=== PATIENT | female | born 1945 | race Caucasian/White ===

== ENCOUNTER → 2016-05-31 | Outpatient (REF) | payer MEDICARE ==
[2016-05-31 13:37] LABS: MEAN CORPUSCULAR HEMOGLOBIN 27.6 pg (27.0-33.0); MEAN CORPUSCULAR HGB CONC 32.2 g/dl (32.0-36.5); MEAN CORPUSCULAR VOLUME 85.7 fl (80.0-96.0); RED CELL DISTRIBUTION WIDTH 14.5 % (11.5-14.5); WHITE BLOOD COUNT 8.4 K/mm3 (4.0-10.0)
[2016-05-31 13:54] LABS: ALBUMIN 3.7 GM/DL (3.2-5.2); ALBUMIN/GLOBULIN RATIO 1.12 (1.00-1.93); ALKALINE PHOSPHATASE 103 U/L (45-117); ALT/SGPT 12 U/L (12-78); ANION GAP 7 MEQ/L (8-16); AST/SGOT 14 U/L (15-37); BILIRUBIN,TOTAL 0.5 MG/DL (0.2-1.0); BLOOD UREA NITROGEN 8 MG/DL (7-18); CALCIUM LEVEL 10.1 MG/DL (8.8-10.2); CARBON DIOXIDE LEVEL 37 MEQ/L (21-32); CHLORIDE LEVEL 97 MEQ/L (98-107); CHOLESTEROL LEVEL 176 MG/DL (<200); CREATININE FOR GFR 0.87 MG/DL (0.55-1.02); FREE T4 1.65 NG/DL (0.76-1.46); GLOMERULAR FILTRATION RATE > 60.0 (>39); GLUCOSE, FASTING 133 MG/DL (83-110); MAGNESIUM LEVEL 2.1 MG/DL (1.8-2.4); POTASSIUM SERUM 3.2 MEQ/L (3.5-5.1); SODIUM LEVEL 141 MEQ/L (136-145); TRIGLYCERIDES LEVEL 181 MG/DL (<150)
== END ==
LOC: M SFHCADAM 09:10
PROVIDERS: ATTEND Physician Assistant
DX: J44.9 Chronic obstructive pulmonary disease, unspecified (principal); E03.9 Hypothyroidism, unspecified; E78.4 Other hyperlipidemia; F17.200 Nicotine dependence, unspecified, uncomplicated; E61.2 Magnesium deficiency

== ENCOUNTER → 2016-05-31 | Outpatient (CLI) | payer MEDICARE ==
--- NOTE | 2016-05-31 16:23 | REP ---
Clinical: COPD with acute dyspnea . Comparison: 08/02/2014 . Technique: PA and lateral. Findings: The mediastinum and cardiac silhouette are stable with evidence for prior sternotomy as well as surgery involving the left hemithorax The lung wyatt demonstrate diffuse chronic interstitial changes without acute consolidation, effusion, or pneumothorax. The skeletal structures are intact and normal. Impression: 1. Diffuse chronic interstitial changes. No obvious acute cardiopulmonary process. Signed by Viet Nixon MD 05/31/2016 04:14 P
== END ==
LOC: M ADAMS 15:35
PROVIDERS: ATTEND Physician Assistant
DX: J44.1 Chronic obstructive pulmonary disease with (acute) exacerbation (principal); E87.6 Hypokalemia; F17.218 Nicotine dependence, cigarettes, with other nicotine-induced disorders; Z79.82 Long term (current) use of aspirin; Z79.899 Other long term (current) drug therapy
CPT/HCPCS: 71020; 80053; 80061; 83735; 84439; 84443; 85027; G0463

== ENCOUNTER → 2016-07-24 | Outpatient (REF) | payer MEDICARE ==
[2016-07-24 21:10] LABS: ANION GAP 6 MEQ/L (8-16); BLOOD UREA NITROGEN 13 MG/DL (7-18); CALCIUM LEVEL 9.9 MG/DL (8.8-10.2); CARBON DIOXIDE LEVEL 34 MEQ/L (21-32); CHLORIDE LEVEL 100 MEQ/L (98-107); CREATININE FOR GFR 0.85 MG/DL (0.55-1.02); GLOMERULAR FILTRATION RATE > 60.0 (>39); GLUCOSE, FASTING 145 MG/DL (83-110); POTASSIUM SERUM 3.3 MEQ/L (3.5-5.1); SODIUM LEVEL 140 MEQ/L (136-145)
== END ==
LOC: M LAB REF 09:27
PROVIDERS: ATTEND Physician Assistant Medical
DX: M81.0 Age-related osteoporosis without current pathological fracture (principal); Z78.0 Asymptomatic menopausal state

== ENCOUNTER → 2016-07-24 | Outpatient (CLI) | payer MEDICARE ==
[2016-07-24 21:10] LABS: BLOOD UREA NITROGEN 12 MG/DL (7-18); GLOMERULAR FILTRATION RATE > 60.0 (>39)
== END ==
LOC: M ADAMS 13:00
PROVIDERS: ATTEND Internal Medicine Hematology & Oncology
DX: M81.0 Age-related osteoporosis without current pathological fracture (principal); C34.12 Malignant neoplasm of upper lobe, left bronchus or lung; C79.31 Secondary malignant neoplasm of brain; Z85.048 Personal history of other malignant neoplasm of rectum, rectosigmoid junction, and anus; Z78.0 Asymptomatic menopausal state

== ENCOUNTER 2016-09-09 09:43 | Emergency (ER) | payer MEDICARE ==
[~2016-09-09] VITALS: Ht 160 cm; Wt 58.1 kg
[2016-09-09] MEDS ORDERED: CRES10TA32 PO (09:55)
[2016-09-09] MEDS ORDERED: LEVO75TA4 (09:55)
[2016-09-09] MEDS ORDERED: ATEN50TA2 (09:55)
[2016-09-09] MEDS ORDERED: CALC600T21 PO (09:55)
[2016-09-09] MEDS ORDERED: SPIR1CAP (09:55)
[2016-09-09] MEDS ORDERED: RANI150T (09:55)
[2016-09-09] MEDS ORDERED: ASPI81CH32 PO (09:55)
[2016-09-09] MEDS ORDERED: ALBU17IN (09:55)
[2016-09-09 12:02] LABS: BASO % 0.4 % (0.0-1.0); EOS # 0.1 K/mm3 (0.0-0.50); EOS % 1.9 % (0.0-3.0); LARGE UNSTAINED CELL # 0.2 K/mm3 (0.0-0.4); LARGE UNSTAINED CELL % 2.4 % (0.0-4.0); LYMPH # 2.2 K/mm3 (1.5-4.5); LYMPH % 27.4 % (24.0-44.0); MEAN CORPUSCULAR HEMOGLOBIN 27.4 pg (27.0-33.0); MEAN CORPUSCULAR HGB CONC 31.6 g/dl (32.0-36.5); MEAN CORPUSCULAR VOLUME 86.7 fl (80.0-96.0); MONO # 0.5 K/mm3 (0.0-0.8); MONO % 7.2 % (0.0-5.0); NEUTROPHILS # 4.5 K/mm3 (1.8-7.7); NEUTROPHILS % 60.6 % (36.0-66.0); PLATELET COUNT, AUTOMATED 168 k/mm3 (150-450); RED CELL DISTRIBUTION WIDTH 13.6 % (11.5-14.5); WHITE BLOOD COUNT 7.4 K/mm3 (4.0-10.0)
[2016-09-09 12:19] LABS: ANION GAP 4 MEQ/L (8-16); BLOOD UREA NITROGEN 8 MG/DL (7-18); CALCIUM LEVEL 9.2 MG/DL (8.8-10.2); CARBON DIOXIDE LEVEL 34 MEQ/L (21-32); CHLORIDE LEVEL 103 MEQ/L (98-107); CREATININE FOR GFR 0.71 MG/DL (0.55-1.02); GLOMERULAR FILTRATION RATE > 60.0 (>39); GLUCOSE, FASTING 89 MG/DL (83-110); POTASSIUM SERUM 3.2 MEQ/L (3.5-5.1); SODIUM LEVEL 141 MEQ/L (136-145)
--- NOTE | 2016-09-09 12:42 | REP ---
Portable chest, single AP view, patient sitting: Comparison is 08/02/2014. Sternotomy wires and borderline enlarged cardiac size are unchanged. There are no focal infiltrates. The left costophrenic angle is mildly effaced suggestive of a small left pleural effusion. The right costophrenic angle is unremarkable. The андрей, mediastinum, and bony thorax are unremarkable. Impression: Question small left pleural effusion. Signed by Saleem Wallace MD 09/09/2016 12:33 P
--- NOTE | 2016-09-09 12:52 | REP ---
CT of the brain without IV contrast: Comparisons of the prior brain CT dated 10/21/2013 and brain MRI dated 06/16/2014. There has been an interim right occipital craniotomy. The previous right cerebellar mass is no longer present. There is focal encephalomalacia in this location on the current study. No recurrent mass by CT. Additionally, there has been interim left posterior superior parietal craniotomy. The previous mass in this location is no longer present. There is focal encephalomalacia. No evidence of tumor recurrence by CT. There is no acute hemorrhage. There is no acute edema, mass effect or midline shift. Ventricles are normal size and midline. The cortical stripe is unremarkable. The visualized paranasal sinuses and mastoid air cells are clear. Impression: There is no hemorrhage, acute infarct or mass. There are old craniotomies one on the right on the on the left as described. No evidence of tumor recurrence at either craniotomy site by CT. Signed by Saleem Wallace MD 09/09/2016 12:43 P
[2016-09-09 13:10] LABS: INR 0.96
[2016-09-09 13:23] LABS: MAGNESIUM LEVEL 2.1 MG/DL (1.8-2.4)
[2016-09-09] MEDS ORDERED: LISINOPRIL 10 MG TAB PO ONE (13:30)
[2016-09-09] MEDS ORDERED: SPIRONOLACTONE 25 MG TAB PO ONE (13:30)
[2016-09-09] MEDS ORDERED: POTASSIUM CHL PWD 20 MEQ PACKET PO ONE ×2 (13:30→15:30)
[2016-09-09] MEDS ORDERED: SPIR25TA2 PO (15:29)
[2016-09-09] MEDS ORDERED: LISI10TA4 PO (15:30)
[2016-09-09] MEDS ORDERED: POTA10PO PO (15:31)
[2016-09-09 15:37] VITALS: BP 167/71
--- NOTE | 2016-09-09 22:29 | ED PDOC ---
Post-Departure Follow-Up dr agosto faxed formal report of cxr for fu Sabas Wyman MD Sep 09, 2016 22:29
--- NOTE | 2016-09-10 20:26 | ECGEPIP ---
Stationary ECG Study [facility] - ED Test Date: 2016-09-09 Pat Name: CHRISSY HENRIQUEZ Department: Room: - Gender: F Flow Nurse: : 1945 Requested By: Joleen Murillo Order Number: [id number] Reading MD: Joleen Murillo Measurements Intervals [place] Rate: 55 P: 53 [place]: 151 QRS: 60 QRSD: 101 T: 46 QT: 426 QTc: 409 Interpretive Statements SINUS BRADYCARDIA NO PRIOR FOR COMPARISON Electronically Signed On 09-10-2016 20:26:16 EDT by Joleen Murillo
[2016-09-15 14:10] LABS: ALDOSTERONE <1.0 ng/dL (0.0-30.0)
== END 2016-09-09 15:50 | disposition home or self-care (01) ==
LOC: M ED 11:23
DX: I10 Essential (primary) hypertension (principal); E87.6 Hypokalemia; R20.9 Unspecified disturbances of skin sensation; J44.9 Chronic obstructive pulmonary disease, unspecified; E07.9 Disorder of thyroid, unspecified; Z85.038 Personal history of other malignant neoplasm of large intestine; Z85.118 Personal history of other malignant neoplasm of bronchus and lung; Z79.899 Other long term (current) drug therapy; Z79.82 Long term (current) use of aspirin; Z88.5 Allergy status to narcotic agent; F17.210 Nicotine dependence, cigarettes, uncomplicated

== ENCOUNTER → 2016-09-14 | Outpatient (REF) | payer MEDICARE ==
[~2016-09-14] MED LIST: ALBU17IN; ASPI81CH32 PO; ATEN50TA2; CALC600T21 PO; CRES10TA32 PO; LEVO75TA4; LISI10TA4 PO; POTA10PO PO; RANI150T; SPIR1CAP; SPIR25TA2 PO
[2016-09-14 12:48] LABS: ANION GAP 6 MEQ/L (8-16); BLOOD UREA NITROGEN 10 MG/DL (7-18); CALCIUM LEVEL 9.8 MG/DL (8.8-10.2); CARBON DIOXIDE LEVEL 31 MEQ/L (21-32); CHLORIDE LEVEL 102 MEQ/L (98-107); CREATININE FOR GFR 0.93 MG/DL (0.55-1.02); GLOMERULAR FILTRATION RATE > 60.0 (>39); GLUCOSE, FASTING 162 MG/DL (83-110); POTASSIUM SERUM 4.1 MEQ/L (3.5-5.1); SODIUM LEVEL 139 MEQ/L (136-145)
== END ==
LOC: M LAB REF 12:25
PROVIDERS: ATTEND Internal Medicine Cardiovascular Disease
DX: I10 Essential (primary) hypertension (principal)

== ENCOUNTER → 2016-10-26 | Outpatient (REF) | payer MEDICARE ==
[2016-10-26 13:20] LABS: CREATININE FOR GFR 1.07 MG/DL (0.55-1.02); GLOMERULAR FILTRATION RATE 53.7 (>39)
== END ==
LOC: M LABDRWAD 12:09
PROVIDERS: ATTEND Nurse Practitioner Adult Health
DX: C79.31 Secondary malignant neoplasm of brain (principal); C34.12 Malignant neoplasm of upper lobe, left bronchus or lung; Z85.048 Personal history of other malignant neoplasm of rectum, rectosigmoid junction, and anus

== ENCOUNTER → 2016-11-27 | Outpatient (REF) | payer MEDICARE ==
[~2016-11-27] MED LIST changes: -CALC600T21 PO; +CALC600T60 PO
[2016-11-27 13:01] LABS: MEAN CORPUSCULAR HEMOGLOBIN 29.2 pg (27.0-33.0); MEAN CORPUSCULAR HGB CONC 32.8 g/dl (32.0-36.5); MEAN CORPUSCULAR VOLUME 89.2 fl (80.0-96.0); RED CELL DISTRIBUTION WIDTH 13.7 % (11.5-14.5); WHITE BLOOD COUNT 10.6 K/mm3 (4.0-10.0)
[2016-11-27 13:19] LABS: ALBUMIN 3.9 GM/DL (3.2-5.2); ALBUMIN/GLOBULIN RATIO 1.15 (1.00-1.93); BILIRUBIN,TOTAL 0.6 MG/DL (0.2-1.0); CALCIUM LEVEL 10.9 MG/DL (8.8-10.2); CREATININE FOR GFR 1.19 MG/DL (0.55-1.02); GLOMERULAR FILTRATION RATE 47.5 (>39); POTASSIUM SERUM 4.8 MEQ/L (3.5-5.1); TOTAL PROTEIN 7.3 GM/DL (6.4-8.2)
== END ==
LOC: M SFHCADAM 08:13
PROVIDERS: ATTEND Physician Assistant
DX: J44.1 Chronic obstructive pulmonary disease with (acute) exacerbation (principal); E87.6 Hypokalemia

== ENCOUNTER → 2017-01-28 | Outpatient (REF) | payer MEDICARE ==
[2017-01-28 14:00] LABS: CREATININE FOR GFR 1.16 MG/DL (0.55-1.02); GLOMERULAR FILTRATION RATE 48.9 (>39)
== END ==
LOC: M LABDRWAD 12:16
PROVIDERS: ATTEND Radiology Radiation Oncology
DX: C34.12 Malignant neoplasm of upper lobe, left bronchus or lung (principal); C79.31 Secondary malignant neoplasm of brain; Z85.048 Personal history of other malignant neoplasm of rectum, rectosigmoid junction, and anus

== ENCOUNTER → 2017-02-27 | Outpatient (REF) | payer MEDICARE ==
[2017-02-27 20:27] LABS: CALCIUM LEVEL 11.2 MG/DL (8.8-10.2); CREATININE FOR GFR 1.07 MG/DL (0.55-1.02); GLOMERULAR FILTRATION RATE 53.7 (>39)
[2017-02-27 20:28] LABS: POTASSIUM SERUM 5.3 MEQ/L (3.5-5.1)
== END ==
LOC: M SFHCADAM 11:39
PROVIDERS: ATTEND Family Medicine
DX: N18.3 Chronic kidney disease, stage 3 (moderate) (principal)

== ENCOUNTER → 2017-03-06 | Outpatient (REF) | payer MEDICARE ==
[2017-03-06 21:20] LABS: ALBUMIN 3.9 GM/DL (3.2-5.2); ALBUMIN/GLOBULIN RATIO 1.05 (1.00-1.93); BILIRUBIN,TOTAL 0.3 MG/DL (0.2-1.0); CALCIUM LEVEL 10.9 MG/DL (8.8-10.2); CREATININE FOR GFR 1.08 MG/DL (0.55-1.02); FREE T4 1.24 NG/DL (0.76-1.46); GLOMERULAR FILTRATION RATE 53.1 (>39); TOTAL PROTEIN 7.6 GM/DL (6.4-8.2)
[2017-03-06 21:22] LABS: POTASSIUM SERUM 5.3 MEQ/L (3.5-5.1)
== END ==
LOC: M SFHCADAM 14:37
PROVIDERS: ATTEND Family Medicine
DX: E83.52 Hypercalcemia (principal)

== ENCOUNTER → 2017-04-10 | Outpatient (CLI) | payer MEDICARE ==
--- NOTE | 2017-04-10 15:24 | REPMRS ---
Patient History The patient states she had a clinical breast exam in 03/2017. Patient is postmenopausal, has history of other cancer at age 68, and has history of colorectal cancer at age 53. Family history of breast cancer in mother at age 90. Digital Woman Screen Mammo: April 10, 2017 - Exam #: [id number] Bilateral CC and MLO view(s) were taken. Technologist: Vianney Tran Technologist Prior study comparison: April 02, 2016, digital woman screen mammo performed at [facility]. April 18, 2015, digital woman screen mammo performed at [facility]. FINDINGS: There are scattered fibroglandular densities. There has been no change in the appearance of the mammogram from the prior studies. There is a mild amount of residual fibroglandular tissue which is fairly symmetric. There is no interval development of dominant mass, architectural distortion, or clustered microcalcification suggestive of malignancy. ASSESSMENT: BI-RADS/ACR category 1 mammogram. Negative. Recommendation Routine screening mammogram in 1 year (for women over age 40). This mammogram was interpreted with the aid of an FDA-approved computer-aided dectection system. Electronically Signed By: Saleem Johansen MD 04/10/17 0209
== END ==
LOC: M WHC 10:33
PROVIDERS: ATTEND Family Medicine
DX: Z12.31 Encounter for screening mammogram for malignant neoplasm of breast (principal); Z85.038 Personal history of other malignant neoplasm of large intestine; Z80.3 Family history of malignant neoplasm of breast; Z78.0 Asymptomatic menopausal state

== ENCOUNTER → 2017-04-29 | Outpatient (REF) | payer MEDICARE ==
[2017-04-29 13:31] LABS: ANION GAP 8 MEQ/L (8-16); BLOOD UREA NITROGEN 7 MG/DL (7-18); CALCIUM LEVEL 10.2 MG/DL (8.8-10.2); CARBON DIOXIDE LEVEL 28 MEQ/L (21-32); CHLORIDE LEVEL 104 MEQ/L (98-107); CREATININE FOR GFR 0.92 MG/DL (0.55-1.02); FREE T4 1.37 NG/DL (0.76-1.46); GLOMERULAR FILTRATION RATE > 60.0 (>39); GLUCOSE, FASTING 109 MG/DL (83-110); POTASSIUM SERUM 4.3 MEQ/L (3.5-5.1); SODIUM LEVEL 140 MEQ/L (136-145)
== END ==
LOC: M LABDRWAD 12:32
PROVIDERS: ATTEND Internal Medicine Endocrinology, Diabetes & Metabolism
DX: M81.0 Age-related osteoporosis without current pathological fracture (principal); E55.9 Vitamin D deficiency, unspecified; E89.0 Postprocedural hypothyroidism

== ENCOUNTER → 2017-04-29 | Outpatient (REF) | payer MEDICARE ==
[2017-04-29 13:17] LABS: BLOOD UREA NITROGEN 7 MG/DL (7-18); GLOMERULAR FILTRATION RATE > 60.0 (>39)
== END ==
LOC: M LABDRWAD 12:34
PROVIDERS: ATTEND Neurological Surgery
DX: C79.31 Secondary malignant neoplasm of brain (principal)

== ENCOUNTER → 2017-07-30 | Outpatient (REF) | payer MEDICARE ==
[2017-07-30 13:03] LABS: CREATININE FOR GFR 1.12 MG/DL (0.55-1.30); GLOMERULAR FILTRATION RATE 50.8 (>39)
[2017-07-30 13:03] LABS: BLOOD UREA NITROGEN 9 MG/DL (7-18)
== END ==
LOC: M LABDRWAD 12:04
DX: R59.9 Enlarged lymph nodes, unspecified (principal)
CPT/HCPCS: 82565

== ENCOUNTER → 2017-08-02 | Outpatient (REF) | payer MEDICARE ==
[2017-08-02 13:31] LABS: ANION GAP 5 MEQ/L (8-16); BLOOD UREA NITROGEN 10 MG/DL (7-18); CALCIUM LEVEL 10.4 MG/DL (8.8-10.2); CARBON DIOXIDE LEVEL 30 MEQ/L (21-32); CHLORIDE LEVEL 104 MEQ/L (98-107); CREATININE FOR GFR 0.91 MG/DL (0.55-1.30); GLOMERULAR FILTRATION RATE > 60.0 (>39); GLUCOSE, FASTING 137 MG/DL (70-100); PHOSPHORUS LEVEL 3.1 MG/DL (2.5-4.9); POTASSIUM SERUM 4.5 MEQ/L (3.5-5.1); SODIUM LEVEL 139 MEQ/L (136-145)
== END ==
LOC: M LABDRWAD 12:51
DX: M81.0 Age-related osteoporosis without current pathological fracture (principal)
CPT/HCPCS: 84100

== ENCOUNTER → 2017-09-18 | Outpatient (REF) | payer MEDICARE ==
[2017-09-18 13:06] LABS: PLATELET COUNT, AUTOMATED 158 10^3/uL (150-450)
[2017-09-18 13:19] LABS: PROTHROMBIN TIME 13.3 SECONDS (12.4-14.5)
[2017-09-18 13:20] LABS: PARTIAL THROMBOPLASTIN TIME 30.8 SECONDS (26.8-37.9)
== END ==
LOC: M LABDRWAD 12:45
DX: M48.061 Spinal stenosis, lumbar region without neurogenic claudication (principal); Z79.899 Other long term (current) drug therapy
CPT/HCPCS: 85049

== ENCOUNTER → 2017-10-28 | Outpatient (CLI) | payer MEDICARE ==
[2017-10-28 13:16] LABS: ALBUMIN 3.2 GM/DL (3.2-5.2); ALBUMIN/GLOBULIN RATIO 0.91 (1.00-1.93); ALKALINE PHOSPHATASE 106 U/L (45-117); ALT/SGPT 16 U/L (12-78); ANION GAP 2 MEQ/L (8-16); AST/SGOT 13 U/L (7-37); BILIRUBIN,TOTAL 0.3 MG/DL (0.2-1.0); BLOOD UREA NITROGEN 12 MG/DL (7-18); CALCIUM LEVEL 10.1 MG/DL (8.8-10.2); CARBON DIOXIDE LEVEL 33 MEQ/L (21-32); CHLORIDE LEVEL 105 MEQ/L (98-107); CREATININE FOR GFR 0.91 MG/DL (0.55-1.30); GLOMERULAR FILTRATION RATE > 60.0 (>39); GLUCOSE, FASTING 126 MG/DL (70-100); POTASSIUM SERUM 4.4 MEQ/L (3.5-5.1); SODIUM LEVEL 140 MEQ/L (136-145); TOTAL PROTEIN 6.7 GM/DL (6.4-8.2)
== END ==
LOC: M ADAMS 10:01
DX: C34.12 Malignant neoplasm of upper lobe, left bronchus or lung (principal); Z85.048 Personal history of other malignant neoplasm of rectum, rectosigmoid junction, and anus; R59.9 Enlarged lymph nodes, unspecified
CPT/HCPCS: 80053

== ENCOUNTER → 2017-12-24 | Outpatient (REF) | payer MEDICARE ==
[2017-12-24 12:56] LABS: HEMATOCRIT 32.1 % (36.0-47.0); HEMOGLOBIN 10.5 g/dl (12.0-15.5); MEAN CORPUSCULAR HEMOGLOBIN 29.6 pg (27.0-33.0); MEAN CORPUSCULAR HGB CONC 32.7 g/dl (32.0-36.5); MEAN CORPUSCULAR VOLUME 90.4 fl (80.0-96.0); PLATELET COUNT, AUTOMATED 177 10^3/uL (150-450); RED BLOOD COUNT 3.55 10^6/uL (4.00-5.40); RED CELL DISTRIBUTION WIDTH 13.2 % (11.5-14.5); WHITE BLOOD COUNT 10.6 10^3/uL (4.0-10.0)
[2017-12-24 13:25] LABS: ALBUMIN 3.4 GM/DL (3.2-5.2); ALKALINE PHOSPHATASE 84 U/L (45-117); ALT/SGPT 16 U/L (12-78); ANION GAP 7 MEQ/L (8-16); AST/SGOT 14 U/L (7-37); BILIRUBIN,TOTAL 0.3 MG/DL (0.2-1.0); BLOOD UREA NITROGEN 9 MG/DL (7-18); CALCIUM LEVEL 10.2 MG/DL (8.8-10.2); CARBON DIOXIDE LEVEL 27 MEQ/L (21-32); CHLORIDE LEVEL 106 MEQ/L (98-107); CHOLESTEROL LEVEL 118 MG/DL (<200); CHOLESTEROL RISK RATIO 3.189 (<5); CREATININE FOR GFR 0.94 MG/DL (0.55-1.30); GLOMERULAR FILTRATION RATE > 60.0 (>39); GLUCOSE, FASTING 99 MG/DL (70-100); HDL CHOLESTEROL 37 MG/DL (>40); LDL CHOLESTEROL 48.8 MG/DL (<100); NON-HDL-C 81 MG/DL; POTASSIUM SERUM 4.3 MEQ/L (3.5-5.1); SODIUM LEVEL 140 MEQ/L (136-145); THYROID STIMULATING HORMONE 0.488 uIU/ML (0.358-3.740); TOTAL PROTEIN 6.8 GM/DL (6.4-8.2); TRIGLYCERIDES LEVEL 161 MG/DL (<150)
== END ==
LOC: M SFHCADAM 10:06
DX: C34.90 Malignant neoplasm of unspecified part of unspecified bronchus or lung (principal); F17.200 Nicotine dependence, unspecified, uncomplicated; E03.9 Hypothyroidism, unspecified; E78.4 Other hyperlipidemia
CPT/HCPCS: 84443

== ENCOUNTER → 2018-01-29 | Outpatient (REF) | payer MEDICARE ==
[2018-01-29 14:14] LABS: CREATININE FOR GFR 0.95 MG/DL (0.55-1.30); GLOMERULAR FILTRATION RATE > 60.0 (>39)
[2018-01-29 14:14] LABS: BLOOD UREA NITROGEN 9 MG/DL (7-18)
== END ==
LOC: M LABDRWAD 12:53
DX: C79.31 Secondary malignant neoplasm of brain (principal)
CPT/HCPCS: 82565

== ENCOUNTER → 2018-04-14 | Outpatient (CLI) | payer MEDICARE | LOC: M WHC 11:04 | DX: Z12.31 Encounter for screening mammogram for malignant neoplasm of breast (principal); Z85.038 Personal history of other malignant neoplasm of large intestine; Z85.118 Personal history of other malignant neoplasm of bronchus and lung; Z85.841 Personal history of malignant neoplasm of brain; Z80.3 Family history of malignant neoplasm of breast | CPT/HCPCS: 77067 ==

== ENCOUNTER → 2018-04-14 | Outpatient (CLI) | payer MEDICARE | LOC: M WHC 11:22 | DX: Z12.31 Encounter for screening mammogram for malignant neoplasm of breast (principal); M81.0 Age-related osteoporosis without current pathological fracture; Z85.038 Personal history of other malignant neoplasm of large intestine; Z85.118 Personal history of other malignant neoplasm of bronchus and lung; Z85.841 Personal history of malignant neoplasm of brain; Z80.3 Family history of malignant neoplasm of breast | CPT/HCPCS: 77067 ==

== ENCOUNTER → 2018-04-29 | Outpatient (REF) | payer MEDICARE ==
[2018-04-29 14:05] LABS: ANION GAP 5 MEQ/L (8-16); BLOOD UREA NITROGEN 8 MG/DL (7-18); CALCIUM LEVEL 10.2 MG/DL (8.8-10.2); CARBON DIOXIDE LEVEL 31 MEQ/L (21-32); CHLORIDE LEVEL 100 MEQ/L (98-107); CREATININE FOR GFR 1.02 MG/DL (0.55-1.30); GLOMERULAR FILTRATION RATE 56.6 (>39); GLUCOSE, FASTING 107 MG/DL (70-100); POTASSIUM SERUM 4.3 MEQ/L (3.5-5.1); SODIUM LEVEL 136 MEQ/L (136-145)
== END ==
LOC: M LABDRWAD 12:46
DX: M81.0 Age-related osteoporosis without current pathological fracture (principal); C79.31 Secondary malignant neoplasm of brain
CPT/HCPCS: 80048

== ENCOUNTER → 2018-04-29 | Outpatient (REF) | payer MEDICARE ==
[2018-04-29 14:07] LABS: BLOOD UREA NITROGEN 9 MG/DL (7-18)
[2018-04-29 14:07] LABS: CREATININE FOR GFR 1.03 MG/DL (0.55-1.30); GLOMERULAR FILTRATION RATE 55.9 (>39)
== END ==
LOC: M LABDRWAD 12:43
DX: C79.31 Secondary malignant neoplasm of brain (principal)

== ENCOUNTER → 2018-06-24 | Outpatient (REF) | payer MEDICARE ==
[~2018-06-24] MED LIST changes: +SPIR-10 PO; -SPIR25TA2 PO
[2018-06-24 15:12] LABS: HEMATOCRIT 34.8 % (36.0-47.0); HEMOGLOBIN 11.4 g/dl (12.0-15.5); MEAN CORPUSCULAR HEMOGLOBIN 29.1 pg (27.0-33.0); MEAN CORPUSCULAR HGB CONC 32.8 g/dl (32.0-36.5); MEAN CORPUSCULAR VOLUME 88.8 fl (80.0-96.0); PLATELET COUNT, AUTOMATED 192 10^3/uL (150-450); RED BLOOD COUNT 3.92 10^6/uL (4.00-5.40); WHITE BLOOD COUNT 9.1 10^3/uL (4.0-10.0)
== END ==
LOC: M LABDRWAD 12:35
PROVIDERS: ATTEND Internal Medicine Cardiovascular Disease
DX: I25.10 Atherosclerotic heart disease of native coronary artery without angina pectoris (principal); I10 Essential (primary) hypertension; R42 Dizziness and giddiness

== ENCOUNTER → 2018-06-24 | Outpatient (REF) | payer MEDICARE ==
[2018-06-24 15:00] LABS: CALCIUM LEVEL 10.5 MG/DL (8.8-10.2); CREATININE FOR GFR 1.01 MG/DL (0.55-1.30); POTASSIUM SERUM 3.8 MEQ/L (3.5-5.1)
== END ==
LOC: M LABDRWAD 12:13
PROVIDERS: ATTEND Internal Medicine Endocrinology, Diabetes & Metabolism
DX: E89.0 Postprocedural hypothyroidism (principal); I25.10 Atherosclerotic heart disease of native coronary artery without angina pectoris; I10 Essential (primary) hypertension; R42 Dizziness and giddiness

== ENCOUNTER → 2018-06-29 | Outpatient (CLI) | payer MEDICARE ==
[2018-06-29 10:45] LABS: CALCIUM LEVEL 10.1 MG/DL (8.8-10.2); CREATININE FOR GFR 1.08 MG/DL (0.55-1.30); GLOMERULAR FILTRATION RATE 52.8 (>39); POTASSIUM SERUM 3.9 MEQ/L (3.5-5.1)
== END ==
LOC: M LAB 10:03
PROVIDERS: ATTEND Internal Medicine Endocrinology, Diabetes & Metabolism
DX: E87.1 Hypo-osmolality and hyponatremia (principal)

== ENCOUNTER → 2018-07-23 | Outpatient (REF) | payer MEDICARE ==
[2018-07-23 21:18] LABS: CREATININE FOR GFR 0.97 MG/DL (0.55-1.30); GLOMERULAR FILTRATION RATE 59.8 (>39)
== END ==
LOC: M LABDRWAD 13:47
PROVIDERS: ATTEND Neurological Surgery
DX: C79.31 Secondary malignant neoplasm of brain (principal)

== ENCOUNTER → 2018-07-23 | Outpatient (REF) | payer MEDICARE ==
[2018-07-23 21:12] LABS: BLOOD UREA NITROGEN 8 MG/DL (7-18); CALCIUM LEVEL 9.3 MG/DL (8.8-10.2); CARBON DIOXIDE LEVEL 33 MEQ/L (21-32); CHLORIDE LEVEL 103 MEQ/L (98-107); CREATININE FOR GFR 0.94 MG/DL (0.55-1.30); GLOMERULAR FILTRATION RATE > 60.0 (>39); GLUCOSE, FASTING 99 MG/DL (70-100); PHOSPHORUS LEVEL 2.8 MG/DL (2.5-4.9); POTASSIUM SERUM 3.6 MEQ/L (3.5-5.1); SODIUM LEVEL 140 MEQ/L (136-145)
[2018-07-23 21:14] LABS: TOTAL 25(OH) VITAMIN D 61.6 NG/ML (30.0-100.0)
== END ==
LOC: M LABDRWAD 13:54
PROVIDERS: ATTEND Internal Medicine Endocrinology, Diabetes & Metabolism
DX: E55.9 Vitamin D deficiency, unspecified (principal); E07.9 Disorder of thyroid, unspecified

== ENCOUNTER → 2018-10-02 | Outpatient (REF) | payer MEDICARE ==
[~2018-10-02] MED LIST changes: -ASPI81CH32 PO; +ASPI81CH33 PO; +CRES10TA PO; -CRES10TA32 PO
[2018-10-02 13:34] LABS: BLOOD UREA NITROGEN 11 MG/DL (7-18); CALCIUM LEVEL 11.1 MG/DL (8.8-10.2); CARBON DIOXIDE LEVEL 32 MEQ/L (21-32); CHLORIDE LEVEL 102 MEQ/L (98-107); CREATININE FOR GFR 0.94 MG/DL (0.55-1.30); GLOMERULAR FILTRATION RATE > 60.0 (>39); GLUCOSE, FASTING 129 MG/DL (70-100); SODIUM LEVEL 140 MEQ/L (136-145)
== END ==
LOC: M LABDRAW1 12:15
PROVIDERS: ATTEND Internal Medicine Endocrinology, Diabetes & Metabolism
DX: M81.0 Age-related osteoporosis without current pathological fracture (principal)

== ENCOUNTER → 2018-10-28 | Outpatient (REF) | payer MEDICARE ==
[2018-10-28 13:44] LABS: BLOOD UREA NITROGEN 13 MG/DL (7-18); CREATININE FOR GFR 0.96 MG/DL (0.55-1.30); GLOMERULAR FILTRATION RATE > 60.0 (>39)
== END ==
LOC: M LABDRWAD 12:20
PROVIDERS: ATTEND Neurological Surgery
DX: C79.31 Secondary malignant neoplasm of brain (principal)

== ENCOUNTER → 2019-01-02 | Outpatient (REF) | payer MEDICARE ==
[2019-01-02 11:26] LABS: HEMATOCRIT 42.4 % (36.0-47.0); HEMOGLOBIN 13.1 g/dl (12.0-15.5); MEAN CORPUSCULAR HGB CONC 30.9 g/dl (32.0-36.5); PLATELET COUNT, AUTOMATED 180 10^3/uL (150-450); RED BLOOD COUNT 4.51 10^6/uL (4.00-5.40); WHITE BLOOD COUNT 10.1 10^3/uL (4.0-10.0)
[2019-01-02 11:41] LABS: ALBUMIN 3.6 GM/DL (3.2-5.2); ALT/SGPT 15 U/L (12-78); BILIRUBIN,TOTAL 0.4 MG/DL (0.2-1.0); BLOOD UREA NITROGEN 18 MG/DL (7-18); CALCIUM LEVEL 10.8 MG/DL (8.8-10.2); CARBON DIOXIDE LEVEL 34 MEQ/L (21-32); CHLORIDE LEVEL 104 MEQ/L (98-107); CHOLESTEROL LEVEL 197 MG/DL (<200); CHOLESTEROL RISK RATIO 4.191 (<5); CREATININE FOR GFR 0.95 MG/DL (0.55-1.30); FREE T4 1.28 NG/DL (0.76-1.46); GLOMERULAR FILTRATION RATE > 60.0 (>39); GLUCOSE, FASTING 103 MG/DL (70-100); HDL CHOLESTEROL 47 MG/DL (>40); LDL CHOLESTEROL 125 MG/DL (<100); NON-HDL-C 150 MG/DL; POTASSIUM SERUM 4.6 MEQ/L (3.5-5.1); SODIUM LEVEL 143 MEQ/L (136-145); TOTAL PROTEIN 7.1 GM/DL (6.4-8.2); TRIGLYCERIDES LEVEL 125 MG/DL (<150)
== END ==
LOC: M SFHCADAM 08:01
PROVIDERS: ATTEND Family Medicine
DX: R53.83 Other fatigue (principal); E78.49 Other hyperlipidemia; E03.9 Hypothyroidism, unspecified

== ENCOUNTER 2019-01-15 06:43 | Emergency (ER) | payer MEDICARE ==
[~2019-01-15] VITALS: Ht 160 cm; Wt 53.6 kg
[2019-01-15] MEDS ORDERED: DECA4TAB PO (07:41)
[2019-01-15] MEDS ORDERED: DOXY-350 PO (07:42)
[2019-01-15 08:03] LABS: BASO % 0.1 % (0.0-1.0); EOS % 0.1 % (0.0-3.0); HEMOGLOBIN 12.5 g/dl (12.0-15.5); LYMPH # 2.3 10^3/uL (1.5-4.5); LYMPH % 16.2 % (24.0-44.0); MEAN CORPUSCULAR HEMOGLOBIN 28.8 pg (27.0-33.0); MEAN CORPUSCULAR HGB CONC 32.1 g/dl (32.0-36.5); MEAN CORPUSCULAR VOLUME 89.9 fl (80.0-96.0); MONO # 1.4 10^3/uL (0.0-0.8); MONO % 9.9 % (0.0-5.0); NEUTROPHILS # 10.1 10^3/uL (1.8-7.7); NEUTROPHILS % 72.5 % (36.0-66.0); PLATELET COUNT, AUTOMATED 208 10^3/uL (150-450); RED BLOOD COUNT 4.34 10^6/uL (4.00-5.40); WHITE BLOOD COUNT 13.9 10^3/uL (4.0-10.0)
[2019-01-15 08:14] LABS: INR 0.98; PROTHROMBIN TIME 12.7 SECONDS (11.8-14.0)
[2019-01-15 08:15] LABS: PARTIAL THROMBOPLASTIN TIME 29.2 SECONDS (25.0-38.4)
[2019-01-15] MEDS ORDERED: IPRATROPIUM 0.5MG/ALBUTEROL 2.5MG INH SOL UD 3ML (DUONEB)(J7620) NEB ONE ×2 (08:30→10:30)
[2019-01-15 08:35] LABS: BLOOD UREA NITROGEN 12 MG/DL (7-18); CALCIUM LEVEL 10.5 MG/DL (8.8-10.2); CARBON DIOXIDE LEVEL 32 MEQ/L (21-32); CHLORIDE LEVEL 102 MEQ/L (98-107); CK-MB VALUE MASS 2.9 NG/ML (<3.6); CPK CREATINE PHOSPHOKINASE 67 U/L (26-192); CREATININE FOR GFR 0.93 MG/DL (0.55-1.30); FREE T4 1.59 NG/DL (0.76-1.46); GLOMERULAR FILTRATION RATE > 60.0 (>39); GLUCOSE, FASTING 101 MG/DL (70-100); MB/CK RELATIVE INDEX 4.33 (< OR =4); NT-PRO BNP 1448 PG/ML (<125); POTASSIUM SERUM 4.6 MEQ/L (3.5-5.1); SODIUM LEVEL 138 MEQ/L (136-145); THYROID STIMULATING HORMONE 0.978 uIU/ML (0.358-3.740); TROPONIN I < 0.02 NG/ML (< 0.10)
--- NOTE | 2019-01-15 08:45 | REP ---
PA and lateral chest: Comparison is 08/02/2014. The lung wyatt are chronically hyperinflated. This is unchanged. There are no infiltrates or effusions. Lung wyatt otherwise clear. Cardiac size is mildly enlarged, unchanged. There are sternotomy wires, unchanged. The андрей, mediastinum, and skeletal structures are unremarkable. Impression: Chronic hyperinflation. Chronic mild cardiomegaly. Electronically Signed by Saleem Wallace MD 01/15/2019 08:36 A
[2019-01-15] MEDS ORDERED: LOSA50TA88 PO (08:57)
[2019-01-15] MEDS ORDERED: ATENOLOL 50 MG TAB PO ONE (09:00)
[2019-01-15] MEDS ORDERED: LISINOPRIL 10 MG TAB PO ONE (09:00)
[2019-01-15] MEDS ORDERED: LOSARTAN 50 MG TAB PO ONE (09:30)
[2019-01-15 09:42] VITALS: BP 191/80
[2019-01-15] MEDS ORDERED: methylPREDNISolone INJ 125 MG/2 ML VIAL (J2930) IV ONE (09:45)
[2019-01-15] MEDS ORDERED: CLEV1MIS25 XX ×2 (11:56→11:58)
[2019-01-15] MEDS ORDERED: PRED20TA PO (11:56)
[2019-01-15] MEDS ORDERED: IPRA0.00 NEB (11:56)
[2019-01-15 12:45] VITALS: BP 173/75
--- NOTE | 2019-01-15 21:23 | ECGEPIP ---
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
== END 2019-01-15 12:59 | disposition home or self-care (01) ==
LOC: M ED 06:43
DX: J44.0 Chronic obstructive pulmonary disease with (acute) lower respiratory infection (principal); I11.9 Hypertensive heart disease without heart failure; E78.5 Hyperlipidemia, unspecified; F17.200 Nicotine dependence, unspecified, uncomplicated; Z95.2 Presence of prosthetic heart valve; Z88.5 Allergy status to narcotic agent; Z79.899 Other long term (current) drug therapy; Z79.82 Long term (current) use of aspirin; Z79.2 Long term (current) use of antibiotics
CPT/HCPCS: 71046; 80048; 82550; 82553; 83880; 84439; 84443; 84484; 85025; 85610; 85730; 87070; 87205; 93005; 93041; 94640; 94760; 96374; 99285; J2930

== ENCOUNTER → 2019-01-28 | Outpatient (REF) | payer MEDICARE ==
[~2019-01-28] MED LIST changes: +CLEV1MIS25 XX; +DECA4TAB PO; +DOXY-350 PO; +IPRA0.00 NEB; +LOSA50TA88 PO; +PRED20TA PO
[2019-01-28 12:52] LABS: BLOOD UREA NITROGEN 12 MG/DL (7-18); CREATININE FOR GFR 0.78 MG/DL (0.55-1.30); GLOMERULAR FILTRATION RATE > 60.0 (>39)
== END ==
LOC: M LABDRWAD 12:21
PROVIDERS: ATTEND Nurse Practitioner Adult Health
DX: C79.31 Secondary malignant neoplasm of brain (principal); M48.061 Spinal stenosis, lumbar region without neurogenic claudication

== ENCOUNTER → 2019-02-13 | Outpatient (REF) | payer MEDICARE ==
[2019-02-13 20:30] LABS: BLOOD UREA NITROGEN 8 MG/DL (7-18); CALCIUM LEVEL 9.5 MG/DL (8.8-10.2); CARBON DIOXIDE LEVEL 32 MEQ/L (21-32); CHLORIDE LEVEL 105 MEQ/L (98-107); CREATININE FOR GFR 0.81 MG/DL (0.55-1.30); FREE T4 1.35 NG/DL (0.76-1.46); GLOMERULAR FILTRATION RATE > 60.0 (>39); GLUCOSE, FASTING 90 MG/DL (70-100); SODIUM LEVEL 141 MEQ/L (136-145); THYROID STIMULATING HORMONE 0.547 uIU/ML (0.358-3.740); TOTAL 25(OH) VITAMIN D 47.6 NG/ML (30.0-100.0)
== END ==
LOC: M LABDRWAD 19:18
PROVIDERS: ATTEND Internal Medicine Endocrinology, Diabetes & Metabolism
DX: E89.0 Postprocedural hypothyroidism (principal); M81.0 Age-related osteoporosis without current pathological fracture

== ENCOUNTER → 2019-04-27 | Outpatient (CLI) | payer MEDICARE ==
--- NOTE | 2019-04-27 12:19 | REPMRS ---
Patient History The patient states she has not had a clinical breast exam in over a year. Family history of breast cancer at age 90 in mother. 3D TOMOSYNTHESIS WAS PERFORMED. [facility] Digital Woman Screen Mammo: April 27, 2019 - Exam #: [id number] Bilateral CC and MLO view(s) were taken. Technologist: Meaghan Marte, Technologist Prior study comparison: April 14, 2018, bilateral digital woman screen mammo performed at [facility]. April 10, 2017, digital woman screen mammo performed at [facility]. FINDINGS: The breast tissue is heterogeneously dense. This may lower the sensitivity of mammography. There has been no change in the appearance of the mammogram from the prior studies. There is a moderate amount of residual fibroglandular tissue which is fairly symmetric. There is no interval development of dominant mass, areas of architectural distortion, or clustered microcalcification typical of malignancy. Assessment: BI-RADS/ACR category 1 mammogram. Negative Mammogram. Recommendation Routine screening mammogram in 1 year (for women over age 40). This mammogram was interpreted with the aid of an FDA-approved computer-aided dectection system. Electronically Signed By: Saleem Johansen MD 04/27/19 [id number]
== END ==
LOC: M WHC 11:22
PROVIDERS: ATTEND Family Medicine
DX: Z12.31 Encounter for screening mammogram for malignant neoplasm of breast (principal); Z80.3 Family history of malignant neoplasm of breast

== ENCOUNTER → 2019-04-29 | Outpatient (REF) | payer MEDICARE ==
[2019-04-29 16:45] LABS: CREATININE FOR GFR 0.97 MG/DL (0.55-1.30); GLOMERULAR FILTRATION RATE 59.8 (>39)
== END ==
LOC: M LABDRWAD 12:38
PROVIDERS: ATTEND Nurse Practitioner Adult Health
DX: C79.31 Secondary malignant neoplasm of brain (principal); M48.061 Spinal stenosis, lumbar region without neurogenic claudication

== ENCOUNTER → 2019-06-22 | Outpatient (REF) | payer MEDICARE ==
[2019-06-22 13:37] LABS: HEMATOCRIT 43.6 % (36.0-47.0); MEAN CORPUSCULAR HEMOGLOBIN 28.2 pg (27.0-33.0); MEAN CORPUSCULAR HGB CONC 29.8 g/dl (32.0-36.5); MEAN CORPUSCULAR VOLUME 94.6 fl (80.0-96.0); PLATELET COUNT, AUTOMATED 185 10^3/uL (150-450); RED BLOOD COUNT 4.61 10^6/uL (4.00-5.40); WHITE BLOOD COUNT 11.3 10^3/uL (4.0-10.0)
[2019-06-22 13:59] LABS: ALBUMIN 3.4 GM/DL (3.2-5.2); ALT/SGPT 12 U/L (12-78); BILIRUBIN,TOTAL 0.5 MG/DL (0.2-1.0); BLOOD UREA NITROGEN 8 MG/DL (7-18); CALCIUM LEVEL 10.1 MG/DL (8.8-10.2); CARBON DIOXIDE LEVEL 33 MEQ/L (21-32); CHLORIDE LEVEL 102 MEQ/L (98-107); CHOLESTEROL LEVEL 124 MG/DL (<200); CHOLESTEROL RISK RATIO 2.638 (<5); CREATININE FOR GFR 0.88 MG/DL (0.55-1.30); FREE T4 1.49 NG/DL (0.76-1.46); GLOMERULAR FILTRATION RATE > 60.0 (>39); GLUCOSE, FASTING 101 MG/DL (70-100); HDL CHOLESTEROL 47 MG/DL (>40); LDL CHOLESTEROL 61 MG/DL (<100); NON-HDL-C 77 MG/DL; POTASSIUM SERUM 4.7 MEQ/L (3.5-5.1); SODIUM LEVEL 139 MEQ/L (136-145); THYROID STIMULATING HORMONE 0.981 uIU/ML (0.358-3.740); TOTAL 25(OH) VITAMIN D 59.4 NG/ML (30.0-100.0); TOTAL PROTEIN 6.6 GM/DL (6.4-8.2); TRIGLYCERIDES LEVEL 80 MG/DL (<150)
== END ==
LOC: M SFHCADAM 08:19
PROVIDERS: ATTEND Family Medicine
DX: J44.9 Chronic obstructive pulmonary disease, unspecified (principal); N18.3 Chronic kidney disease, stage 3 (moderate); I12.9 Hypertensive chronic kidney disease with stage 1 through stage 4 chronic kidney disease, or unspecified chronic kidney disease; E03.9 Hypothyroidism, unspecified; E78.5 Hyperlipidemia, unspecified

== ENCOUNTER → 2019-07-27 | Outpatient (REF) | payer MEDICARE ==
[2019-07-27 17:47] LABS: BLOOD UREA NITROGEN 8 MG/DL (7-18); CREATININE FOR GFR 0.91 MG/DL (0.55-1.30); GLOMERULAR FILTRATION RATE > 60.0 (>39)
== END ==
LOC: M LABDRWAD 17:01
PROVIDERS: ATTEND Nurse Practitioner Adult Health
DX: C79.31 Secondary malignant neoplasm of brain (principal); M48.061 Spinal stenosis, lumbar region without neurogenic claudication

== ENCOUNTER → 2019-11-18 | Outpatient (REF) | payer MEDICARE ==
[2019-11-18 14:44] LABS: BLOOD UREA NITROGEN 16 MG/DL (7-18); CREATININE FOR GFR 0.96 MG/DL (0.55-1.30); GLOMERULAR FILTRATION RATE > 60.0 (>39)
== END ==
LOC: M LABDRWAD 12:27
PROVIDERS: ATTEND Nurse Practitioner Adult Health
DX: C79.31 Secondary malignant neoplasm of brain (principal); M48.061 Spinal stenosis, lumbar region without neurogenic claudication

== ENCOUNTER 2020-01-18 20:22 | Emergency (ER) | payer MEDICARE ==
[~2020-01-18] VITALS: Ht 160 cm; Wt 54.6 kg
[~2020-01-18 20:22] MED LIST changes: -CHLO125TA PO
--- NOTE | 2020-01-18 22:11 | REPVR ---
PROCEDURE INFORMATION: Exam: CT Head Without Contrast Exam date and time: 01/18/2020 9:54 PM Age: 74 years old Clinical indication: Pain; Headache; Additional info: High BP with eye/head pain, HX tumor TECHNIQUE: Imaging protocol: Computed tomography of the head without contrast. Radiation optimization: All CT scans at this facility use at least one of these dose optimization techniques: automated exposure control; mA and/or kV adjustment per patient size (includes targeted exams where dose is matched to clinical indication); or iterative reconstruction. COMPARISON: CT Head without contrast 09/09/2016 12:28 PM FINDINGS: Brain: Areas of left parietal and right cerebellar encephalomalacia are stable. There is no evidence of intracranial hemorrhage. No mass effect or midline shift is seen. No abnormal extra-axial fluid collections are identified. Ventricles: The ventricles are normal in size and configuration. Bones/joints: Right suboccipital craniectomy and parietal craniotomy again noted. Sinuses: The visualized sinuses are unremarkable. Mastoid air cells: Partial opacification of the right mastoid air cells. Vasculature: Atherosclerotic vascular disease is noted at the level of the skull base. IMPRESSION: 1. Postoperative changes left parietal and right suboccipital craniotomies, with underlying encephalomalacia in these locations. 2. No acute intracranial hemorrhage, mass effect or midline shift. Electronically signed by: Aide Ross On 01/18/2020 22:10:56 PM
[2020-01-18] MEDS ORDERED: LABETALOL 100MG/20ML VIAL IV STA (23:43)
[2020-01-19 00:17] LABS: BASO # 0.1 10^3/uL (0.0-0.2); BASO % 0.4 % (0.0-1.0); EOS # 0.3 10^3/uL (0.0-0.5); EOS % 2.6 % (0.0-3.0); HEMATOCRIT 37.4 % (36.0-47.0); HEMOGLOBIN 12.2 g/dl (12.0-15.5); LYMPH # 3.6 10^3/uL (1.5-5.0); LYMPH % 30.9 % (24.0-44.0); MEAN CORPUSCULAR HGB CONC 32.6 g/dl (32.0-36.5); MEAN CORPUSCULAR VOLUME 91.9 fl (80.0-96.0); MONO # 1.2 10^3/uL (0.0-0.8); MONO % 9.9 % (0.0-5.0); NEUTROPHILS # 6.5 10^3/uL (1.5-8.5); NEUTROPHILS % 55.6 % (36.0-66.0); PLATELET COUNT, AUTOMATED 190 10^3/uL (150-450); RED BLOOD COUNT 4.07 10^6/uL (4.00-5.40); WHITE BLOOD COUNT 11.6 10^3/uL (4.0-10.0)
[2020-01-19 00:21] VITALS: BP 208/88
[2020-01-19 00:23] LABS: BLOOD UREA NITROGEN 8 MG/DL (7-18); CALCIUM LEVEL 10.7 MG/DL (8.8-10.2); CARBON DIOXIDE LEVEL 31 MEQ/L (21-32); CHLORIDE LEVEL 107 MEQ/L (98-107); CK-MB VALUE MASS 1.1 NG/ML (<3.6); CPK CREATINE PHOSPHOKINASE 43 U/L (26-192); CREATININE FOR GFR 0.81 MG/DL (0.55-1.30); GLOMERULAR FILTRATION RATE > 60.0 (>39); GLUCOSE, FASTING 101 MG/DL (70-100); MB/CK RELATIVE INDEX 2.56 (< OR =4); POTASSIUM SERUM 3.7 MEQ/L (3.5-5.1); SODIUM LEVEL 141 MEQ/L (136-145); TROPONIN I < 0.02 NG/ML (< 0.10)
[2020-01-19 00:32] LABS: APPEARANCE, URINE CLEAR (CLEAR); BACTERIA, URINE AUTO NEGATIVE (NEGATIVE); BILIRUBIN, URINE AUTO NEGATIVE (NEGATIVE); BLOOD, URINE BLOOD NEGATIVE (NEGATIVE); COLOR, URINE STRAW (YELLOW); GLUCOSE, URINE (UA) AUTO NEGATIVE (NEGATIVE); KETONE, URINE AUTO NEGATIVE (NEGATIVE); LEUKOCYTE ESTERASE, URINE AUTO NEGATIVE (NEGATIVE); NITRITE, URINE AUTO NEGATIVE (NEGATIVE); PROTEIN, URINE AUTO NEGATIVE (NEGATIVE); RBC, URINE AUTO 3 /HPF (0-3); SPECIFIC GRAVITY URINE AUTO 1.005 (1.002-1.035); SQUAMOUS EPITHELIAL CELL UR AU 1 /HPF (0-6); UROBILINOGEN, URINE AUTO 0.2 mg/dL (0.0-2.0); WBC, URINE AUTO 1 /HPF (0-3)
[2020-01-19 00:45] VITALS: BP 171/72
[2020-01-19] MEDS ORDERED: CHLORTHALIDONE 25 MG TAB PO ONE (02:00)
[2020-01-19] MEDS ORDERED: CHLO125TA PO (02:01)
--- NOTE | 2020-01-31 18:48 | ECGEPIP ---
[facility] - ED Test Date: 2020-01-18 Pat Name: CHRISSY HENRIQUEZ Department: Room: - Gender: Female Test Lab Technician: gabrielle : 1945 Requested By: SILVIO Rubin PA-C Order Number: [id number] Reading MD: Joleen Murillo Measurements Intervals [place] Rate: 66 P: 63 [place]: 143 QRS: 77 QRSD: 101 T: 67 QT: 378 QTc: 398 Interpretive Statements SINUS RHYTHM MINIMAL ST DEPRESSION BORDERLINE ECG SEE SCANNED DOWNTIME REPORT
== END 2020-01-19 02:10 | disposition home or self-care (01) ==
LOC: M ED 20:22
DX: I16.0 Hypertensive urgency (principal); E03.9 Hypothyroidism, unspecified; F17.200 Nicotine dependence, unspecified, uncomplicated; Z79.82 Long term (current) use of aspirin; Z79.899 Other long term (current) drug therapy; Z88.5 Allergy status to narcotic agent

== ENCOUNTER → 2020-01-18 | Outpatient (REF) | payer MEDICARE ==
[~2020-01-18] MED LIST changes: +CHLO125TA PO
[2020-01-18 14:44] LABS: BLOOD UREA NITROGEN 8 MG/DL (7-18); CALCIUM LEVEL 10.2 MG/DL (8.8-10.2); CARBON DIOXIDE LEVEL 29 MEQ/L (21-32); CHLORIDE LEVEL 106 MEQ/L (98-107); CREATININE FOR GFR 0.83 MG/DL (0.55-1.30); GLOMERULAR FILTRATION RATE > 60.0 (>39); GLUCOSE, FASTING 110 MG/DL (70-100); POTASSIUM SERUM 4.2 MEQ/L (3.5-5.1); SODIUM LEVEL 140 MEQ/L (136-145); THYROID STIMULATING HORMONE 0.554 uIU/ML (0.358-3.740); TOTAL 25(OH) VITAMIN D 55.5 NG/ML (30.0-100.0)
== END ==
LOC: M LABDRWAD 10:10
PROVIDERS: ATTEND Family Medicine
DX: M81.0 Age-related osteoporosis without current pathological fracture (principal); E89.0 Postprocedural hypothyroidism; E55.9 Vitamin D deficiency, unspecified

== ENCOUNTER → 2020-01-21 | Outpatient (REF) | payer MEDICARE ==
[~2020-01-21] MED LIST changes: +CHLO125TA PO
[2020-01-21 13:40] LABS: HEMATOCRIT 37.7 % (36.0-47.0); MEAN CORPUSCULAR HEMOGLOBIN 29.3 pg (27.0-33.0); MEAN CORPUSCULAR HGB CONC 31.8 g/dl (32.0-36.5); PLATELET COUNT, AUTOMATED 188 10^3/uL (150-450); WHITE BLOOD COUNT 10.2 10^3/uL (4.0-10.0)
[2020-01-21 15:13] LABS: CALCIUM LEVEL 10.1 MG/DL (8.8-10.2); CREATININE FOR GFR 1.18 MG/DL (0.55-1.30); GLOMERULAR FILTRATION RATE 47.5 (>39); POTASSIUM SERUM 3.8 MEQ/L (3.5-5.1)
== END ==
LOC: M LABDRWAD 12:53
PROVIDERS: ATTEND Internal Medicine Cardiovascular Disease
DX: I10 Essential (primary) hypertension (principal)

== ENCOUNTER → 2020-03-09 | Outpatient (REF) | payer MEDICARE ==
[2020-03-09 13:32] LABS: CREATININE FOR GFR 1.04 MG/DL (0.55-1.30)
== END ==
LOC: M LABDRWAD 12:10
PROVIDERS: ATTEND Neurological Surgery
DX: C79.31 Secondary malignant neoplasm of brain (principal)

== ENCOUNTER → 2020-03-18 | Outpatient (REF) | payer MEDICARE | LOC: M LAB REF 19:15 | PROVIDERS: ATTEND Physician Assistant | DX: R05 Cough (principal); R30.0 Dysuria; J44.9 Chronic obstructive pulmonary disease, unspecified ==

== ENCOUNTER → 2020-03-31 | Outpatient (CLI) | payer MEDICARE ==
--- NOTE | 2020-03-31 14:19 | REP ---
INDICATION: ATHSCL ARTERIES W/ CALUDICATION PENELOPE LEG PAINLEGS. Nicotine dependence. COMPARISON: None. TECHNIQUE: Bilateral lower extremity arterial Doppler ultrasound. FINDINGS: Ankle brachial indices are quite low, 0.43 on the right and 0.46 on the left. Severe plaquing is noted diffusely and bilaterally. Monophasic waveforms are noted bilaterally throughout the lower extremity arterial tree. Very slow flow is observed in both legs. Slow flow is observed in the distal aorta. No flow could be observed in the right external iliac artery. Monophasic waveforms are noted in the iliac arteries bilaterally and in the distal aorta. Question more proximal aortic disease or cardiac outflow issue. Right lower extremity arterial Doppler velocity chart: Distal aorta PSV 19 cm/S Right common iliac artery 85 Right external iliac artery no flow seen, question occluded Right HADOOP APPLICATION DEVELOPER 49 Profundal 46 Proximal SFA 60 Mid SFA 49-105 Distal SFA 50 Popliteal 22 Proximal ANKIT 17 Tibial-peroneal trunk 21 Proximal CENTRIFUGE SEPARATOR TENDER 11 Distal CENTRIFUGE SEPARATOR TENDER 19 Distal ANKIT 8 Left lower extremity arterial Doppler velocity chart: Distal aorta PSV 19 cm/S Left common iliac artery 102 Left external iliac artery 49 HADOOP APPLICATION DEVELOPER 30 Profundal 45 Proximal SFA 51 Mid SFA 59 Distal SFA 38 Popliteal 26 Proximal ANKIT 16 Tibial-peroneal trunk 15 Proximal CENTRIFUGE SEPARATOR TENDER 17 Distal CENTRIFUGE SEPARATOR TENDER 13 Distal ANKIT 11 IMPRESSION: Slow arterial flow state throughout both lower extremities including distal aorta and iliacs. Absence of flow observed in right external iliac artery. Monophasic waveforms. Question mid to proximal aortic versus cardiac disease. Possible inflow issue. Severe plaquing bilaterally. Low ABIs. <Electronically signed by Grupo Guy > 03/31/20 [id number]
== END ==
LOC: M RAD 10:32
PROVIDERS: ATTEND Physician Assistant
DX: I70.213 Atherosclerosis of native arteries of extremities with intermittent claudication, bilateral legs (principal); F17.210 Nicotine dependence, cigarettes, uncomplicated; M79.606 Pain in leg, unspecified

== ENCOUNTER → 2020-04-04 | Outpatient (REF) | payer MEDICARE ==
[~2020-04-04] MED LIST changes: +ALBU83IN NEB; +AMLO1TAB24 PO; -ATEN50TA2; +ATEN50TA2 PO; +D31000TA2 PO; -LEVO75TA4; +LEVO75TA4 PO; +NOXI1TAB PO; +SODI1TAB12 PO; -SPIR1CAP; +SPIR1CAP INH; +VENTAER INH
[2020-04-04 17:13] LABS: BASO % 0.3 % (0.0-1.0); EOS # 0.1 10^3/uL (0.0-0.5); EOS % 1.1 % (0.0-3.0); HEMOGLOBIN 11.5 g/dl (12.0-15.5); LYMPH # 2.9 10^3/uL (1.5-5.0); LYMPH % 25.5 % (24.0-44.0); MEAN CORPUSCULAR HEMOGLOBIN 28.5 pg (27.0-33.0); MEAN CORPUSCULAR HGB CONC 32.9 g/dl (32.0-36.5); MEAN CORPUSCULAR VOLUME 86.8 fl (80.0-96.0); MONO # 1.4 10^3/uL (0.0-0.8); NEUTROPHILS # 6.9 10^3/uL (1.5-8.5); NEUTROPHILS % 60.5 % (36.0-66.0); PLATELET COUNT, AUTOMATED 250 10^3/uL (150-450); RED BLOOD COUNT 4.03 10^6/uL (4.00-5.40); WHITE BLOOD COUNT 11.4 10^3/uL (4.0-10.0)
[2020-04-04 17:34] LABS: ALBUMIN 3.7 GM/DL (3.2-5.2); ALT/SGPT 12 U/L (12-78); BILIRUBIN,TOTAL 0.4 MG/DL (0.2-1.0); BLOOD UREA NITROGEN 10 MG/DL (7-18); CALCIUM LEVEL 10.4 MG/DL (8.8-10.2); CARBON DIOXIDE LEVEL 34 MEQ/L (21-32); CHLORIDE LEVEL 82 MEQ/L (98-107); FREE T4 1.85 NG/DL (0.76-1.46); GLOMERULAR FILTRATION RATE > 60.0 (>39); GLUCOSE, FASTING 96 MG/DL (70-100); POTASSIUM SERUM 3.9 MEQ/L (3.5-5.1); SODIUM LEVEL 122 MEQ/L (136-145); THYROID STIMULATING HORMONE 0.578 uIU/ML (0.358-3.740); TOTAL PROTEIN 6.8 GM/DL (6.4-8.2)
== END ==
LOC: M SFHCADAM 15:05
PROVIDERS: ATTEND Family Medicine
DX: R39.15 Urgency of urination (principal); R53.1 Weakness
CPT/HCPCS: 80053; 81002; 84439; 84443; 85025; 87086; G0463

== ENCOUNTER → 2020-04-07 | Outpatient (REF) | payer MEDICARE ==
[2020-04-07 13:26] LABS: BLOOD UREA NITROGEN 7 MG/DL (7-18); CALCIUM LEVEL 10.5 MG/DL (8.8-10.2); CARBON DIOXIDE LEVEL 32 MEQ/L (21-32); CHLORIDE LEVEL 80 MEQ/L (98-107); CREATININE FOR GFR 0.94 MG/DL (0.55-1.30); GLOMERULAR FILTRATION RATE > 60.0 (>39); GLUCOSE, FASTING 126 MG/DL (70-100); POTASSIUM SERUM 3.6 MEQ/L (3.5-5.1); SODIUM LEVEL 123 MEQ/L (136-145)
[2020-04-07 13:27] LABS: OSMOLALITY SERUM 255 MOSM/KG (280-301)
== END ==
LOC: M SFHCADAM 10:20
PROVIDERS: ATTEND Family Medicine
DX: E87.1 Hypo-osmolality and hyponatremia (principal)

== ENCOUNTER 2020-04-09 15:14 | Observation (INO) | payer MEDICARE ==
[~2020-04-09] VITALS: Ht 160 cm; Wt 52.6 kg
[~2020-04-09 15:14] MED LIST changes: -ALBU83IN NEB; -AMLO1TAB24 PO; -D31000TA2 PO; -NOXI1TAB PO; -SODI1TAB12 PO; -VENTAER INH
[2020-04-09] MEDS ORDERED: LIDOCAINE 2% 5ML JELLY UROJET TOP ONE (15:45)
[2020-04-09] MEDS ORDERED: NS 1,000 ML IV ONE (15:45)
[2020-04-09 16:18] LABS: BASO % 0.2 % (0.0-1.0); EOS # 0.1 10^3/uL (0.0-0.5); EOS % 0.6 % (0.0-3.0); HEMATOCRIT 31.7 % (36.0-47.0); HEMOGLOBIN 10.8 g/dl (12.0-15.5); LYMPH # 1.7 10^3/uL (1.5-5.0); LYMPH % 16.3 % (24.0-44.0); MEAN CORPUSCULAR HEMOGLOBIN 28.2 pg (27.0-33.0); MEAN CORPUSCULAR HGB CONC 34.1 g/dl (32.0-36.5); MEAN CORPUSCULAR VOLUME 82.8 fl (80.0-96.0); MONO # 1.2 10^3/uL (0.0-0.8); MONO % 11.5 % (0.0-5.0); NEUTROPHILS # 7.4 10^3/uL (1.5-8.5); NEUTROPHILS % 70.8 % (36.0-66.0); PLATELET COUNT, AUTOMATED 206 10^3/uL (150-450); RED BLOOD COUNT 3.83 10^6/uL (4.00-5.40); WHITE BLOOD COUNT 10.4 10^3/uL (4.0-10.0)
[2020-04-09] MEDS: ALBUTEROL 90 MCG/ACT 8GM HFA INHALER INH SCH ×3 (16:20→17:16)
[2020-04-09 16:30] LABS: INR 0.96; PARTIAL THROMBOPLASTIN TIME 29.1 SECONDS (24.2-38.5)
[2020-04-09] MEDS ORDERED: POTASSIUM CHLORIDE 10 MEQ SR TABLET PO ONE ×2 (16:30→23:15)
[2020-04-09] MEDS ORDERED: KCL 10MEQ/100ML SWI (KRUN) 10 MEQ in IV 1 EA IV ONE (16:30)
[2020-04-09] MEDS ORDERED: NOXI1TAB PO (16:40)
[2020-04-09 16:54] LABS: OSMOLALITY SERUM 237 MOSM/KG (280-301)
[2020-04-09 16:58] LABS: ALBUMIN 3.5 GM/DL (3.2-5.2); ALT/SGPT 16 U/L (12-78); BILIRUBIN,DIRECT 0.2 MG/DL (0.0-0.2); BILIRUBIN,TOTAL 0.6 MG/DL (0.2-1.0); BLOOD UREA NITROGEN 6 MG/DL (7-18); CALCIUM LEVEL 9.8 MG/DL (8.8-10.2); CARBON DIOXIDE LEVEL 35 MEQ/L (21-32); CHLORIDE LEVEL 74 MEQ/L (98-107); CREATININE FOR GFR 0.84 MG/DL (0.55-1.30); FREE T4 2.57 NG/DL (0.76-1.46); GLOMERULAR FILTRATION RATE > 60.0 (>39); GLUCOSE, FASTING 118 MG/DL (70-100); LIPASE 92 U/L (73-393); MAGNESIUM LEVEL 1.5 MG/DL (1.8-2.4); POTASSIUM SERUM 2.8 MEQ/L (3.5-5.1); SODIUM LEVEL 115 MEQ/L (136-145); THYROID STIMULATING HORMONE 0.697 uIU/ML (0.358-3.740); TOTAL PROTEIN 6.4 GM/DL (6.4-8.2)
--- NOTE | 2020-04-09 17:04 | REP ---
INDICATION: CHEST PAIN COMPARISON: 01/15/2019 TECHNIQUE: Portable AP view of the chest FINDINGS: The mediastinum and cardiac silhouette are stable and within normal limits for portable technique. Evidence for prior sternotomy and CABG again noted. The lung wyatt demonstrate chronic appearing interstitial changes without acute consolidation, effusion, or pneumothorax. Skeletal structures are intact. IMPRESSION: No acute cardiopulmonary process appreciated. No focal consolidation or effusion. <Electronically signed by Viet Nixon > 04/09/20 0562
[2020-04-09] MEDS ORDERED: MAG SULF 1GM/100ML (MAG RUN) 1 GM in IV 1 EA IV ONE (17:15)
[2020-04-09] MEDS ORDERED: CHLO125TA PO (17:38)
[2020-04-09] MEDS ORDERED: D31000TA2 PO (17:38)
[2020-04-09] MEDS ORDERED: VENTAER INH (17:38)
[2020-04-09] MEDS ORDERED: ALBU83IN NEB (17:38)
--- NOTE | 2020-04-09 17:50 | ECGEPIP ---
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
--- NOTE | 2020-04-09 17:55 | REPVR ---
PROCEDURE INFORMATION: Exam: CT Head Without Contrast Exam date and time: 04/09/2020 5:10 PM Age: 74 years old Clinical indication: Injury or trauma; Fall; Blunt trauma (contusions or hematomas); Consciousness not specified; Additional info: Fall, wk TECHNIQUE: Imaging protocol: Computed tomography of the head without contrast. Radiation optimization: All CT scans at this facility use at least one of these dose optimization techniques: automated exposure control; mA and/or kV adjustment per patient size (includes targeted exams where dose is matched to clinical indication); or iterative reconstruction. COMPARISON: CT Head without contrast 01/18/2020 9:47 PM FINDINGS: Brain: There is no acute cortical infarction, intracranial hemorrhage or mass. Prior regions of encephalomalacia underlying the craniotomy defects parietal and right suboccipital/right cerebellar hemisphere are again noted. Cerebral ventricles: No ventriculomegaly. Bones/joints: As above. Paranasal sinuses: Visualized sinuses are unremarkable. No fluid levels. Mastoid air cells: Visualized mastoid air cells are well aerated. Vasculature: Atherosclerosis. Soft tissues: Unremarkable. IMPRESSION: No acute intracranial findings. Electronically signed by: Pat Buckley On 04/09/2020 17:55:21 PM
[2020-04-09 18:10] LABS: CREATININE,RANDOM URINE 71.4 MG/DL
--- NOTE | 2020-04-09 20:06 | HPEPDOC ---
[facility] Medical History & Physical Date of Admission Apr 09, 2020 Date of Service: Apr 09, 2020 Primary Care Physician: Jesse Marrero MD Attending Physician: JOY TESFAYE MD History and Physical CHIEF COMPLAINT: Weakness HISTORY OF PRESENT ILLNESS: Patient is a 74-year-old female, past medical history significant for COPD, aortic valve replacement, brain tumor 2, colon cancer, hypertension, hyperlipidemia, CAD s/p CABG, Who presents to the ED via EMS complaining increasing weakness over the last 2-3 weeks, typically worse in the last 4 days. Denies any loss of consciousness or changes in mental status. Previously diagnosed with UTI 10 days ago and has recently completed standard course of Bactrim. Upon presentation, patient was found to be afebrile, pulse of 73, respiratory rate of 18, blood pressure 160/78 and saturating 98% on room air. . Vital signs 1 hour later demonstrated orthostasis with a supine blood pressure of 197/74 (115) pulse of 78, 177/123 (141) pulse of 79 sitting, 120/58 (78) pulse of 83 standing. Laboratory evaluation demonstrated a very mild elevation of WBC, 10.4. H/H of 10.8/31.7. Chemistries show a sodium of 115, potassium of 2.8. BUN/Cr of 6/0.84, osmolality of 237, hypomagnesemia of 1.5. UA significant for trace ketones, nitrates and trace LE. Urine osmolality of 266, creatinine of 71.4, sodium of 46.Patient was given a bolus of normal saline. Potassium replacement with 40 mEq by mouth and 10 mEq IV, magnesium replacement with a single mag run. Hospitalist team was contacted to admit the patient for further monitoring and management. PAST MEDICAL HISTORY: Adenocarcinoma, stage IV, S/P left upper lobectomy Brain metastases first noted in 06/03, resected in 08/01 confirmatory adeno for some of the lung primary Colon cancer, 1997, status post chemotherapy Hypercholesterolemia Hypothyroid, follows with Dr. Burroughs Aortic valve replacement, porcine, 2000 Mitral valve prolapse Peripheral arterial disease, rt superior femoral artery Carotid artery disease Left vocal cord paralysis COPD Current nicotine dependence Osteoporosis Crohn's disease Paroxysmal atrial fibrillation, on ASA, no anticoagulation due to GI bleed with ulcers from anastomoses in the past PAST SURGICAL HISTORY: Hysterectomy, 1976 Right hemicolectomy, 1997 Cholecystectomy, 1998 Small bowel resection, 1999 Aortic valve replacement, porcine, 2000 Angioplasty of right leg, SFAPTA, 2004 ORIF of right hip fracture in 2004. Tonsillectomy, excision of tongue lesion, 1996 Cardiac cath Left upper lobe ectopy CyberKnife for brain lesions, 2015 SOCIAL HISTORY: . Lives alone in home in [place]. Daughter/granddaughter in the area who help around the house. Denies alcohol, other illicit drug use. Current smoker, 6-10 cigarettes per day. Reports smoking 1-1.5 packs per day since teens. 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 FAMILY HISTORY: Father: , 77, colon cancer Mother: , 92, breast cancer at age 90, tongue and lymph node cancer, CVA Siblings: Sister, , 82, [place], brother, living, hypertension Children: One daughter who is healthy ALLERGIES: Codeine, nausea and vomiting Statins, myalgias Advair, mouth soreness Chantix, nightmares Wellbutrin, fatigue REVIEW OF SYSTEMS: CONSTITUTIONAL: Ports increasing fatigue over the last 2-3 weeks. Denies any fevers, chills, night sweats or notable changes in weight. Appetite has remained consistent. HEENT: Denies any headache, changes in vision. Reports chronic left ear tinnitus, denies any changes in hearing or ear pain or fullness. Denies any nasal congestion or rhinorrhea. No sore throats, mouth lesions or difficulty swallowing. CARDIOVASCULAR: Denies any dedra chest pain or palpitations. Denies syncope or near-syncope. RESPIRATORY: Reports baseline reductive cough, unchanged in proceeding one month. Reports baseline VIDAL, patient does not use oxygen at home. Denies hemoptysis. GASTROINTESTINAL: Denies any reflux symptoms, abdominal pain/distention. Reports long-standing history of loose stools, denies any melena or hematochezia GENITOURINARY: As per HPI, patient was evaluated by urology on 04/05/20 4 incomplete voiding. Patient has been instructed to see CIC with 14 Martiniquais straight tip catheter. SKIN: No rashes, lesions or open wounds. MUSCULOSKELETAL: She does carry history of spinal stenosis and osteoporosis. Eyes any joint/muscle aches or pains NEUROLOGICAL: Adenocarcinoma of the lung with brain metastases. Denies any cur rent headache or neck pain. She denies any loss of consciousness, numbness tingling, focal weakness. HOME MEDICATIONS: Please see below. PHYSICAL EXAMINATION: VITAL SIGNS: Please see below GENERAL APPEARANCE: Patient is interviewed and examined in the emergency department. Patient was found resting comfortably in bed. She was alert and awake and oriented. In no acute distress and nontoxic appearing. Patient was able to answer questions appropriately regarding medical care. HEENT: Normocephalic, atraumatic, EOMI, sclerae nonicteric, no conjunctival injection, mucous membranes are moist, tongue is midline, supple without any appreciable lymphadenopathy. CARDIOVASCULAR: Regular rate and rhythm, no murmur appreciated, sternotomy scar noted LUNGS: Limited breath sounds in the bases bilaterally, without any wheezes rales or rhonchi. Symmetrical chest rise with fair respiratory effort. ABDOMEN: Soft, nontender, nondistended, no CVA tenderness. Hysterectomy and colectomy/small bowel resection scar is noted. EXTREMITIES: Able to move all extremities equally, bilaterally. Radial and posterior tibial pulses 2+ bilaterally. No lower extremity edema. No calf tenderness. NEUROLOGICAL: Oriented 3, no dysarthria, dysphasia or facial droop appreciated. Strength 5 out of 5 in upper and lower extremities. Cranial nerves grossly intact. PSYCHIATRIC: Mood and affect appear appropriate given patient's current medical condition. LABORATORY DATA: See below. IMAGING: EKG (04/09/20): Sinus rhythm, frequent supraventricular premature complexes, possible inferior myocardial infarction, probably old, moderate T-wave abnormality, consider anterior ischemia, borderline prolonged QTC of 455. Head CT (04/09/20): No acute intracranial findings Chest x-ray (04/09/20): No acute cardiopulmonary process appreciated. No focal consolidation or effusion. MICROBIOLOGY: Urine culture, catheterized (04/09/20): Pending Blood cultures (04/09/20): Pending ASSESSMENT: Patient is a 74-year-old female with multiple comorbidities, recently diagnosed with urinary retention and UTI, status post 10 days worth of Bactrim, who presented to the emergency department today reporting increasing weakness and l ethargy. Patient was found to be severely hyponatremic, hypokalemic and hypomagnesemic. Patient readmitted to the hospital for continued evaluation and management of her electrolyte abnormalities. PLAN: #Severe, asymptomatic hypotonic hyponatremia -Presenting sodium of 115, serum osm of 237 -Urine osm of 266, indicating impaired free-water excretion, supports SIADH -Urine sodium of 46 supporting normal circulating volume -Suspect chronic hyponatremia, possibly acutely worsened by recent course of Bactrim -Slow correction of 8 meq in 24hr, increased risk of CPM 2/2 to hyponatremia, +/- impaired nutritional status. -PCU, tele, fluid restriction, BMP monitoring every 4 hours, will hold Losartan Patient remains adamant that she does not take chlorthalidone. It is not listed on any PCP, cardiology, neurosurgery or her recent Urology note. Confirm with pharmacy in am, as this could be a significant contributing factor. #Hypertensive Urgency -Resolved, orthostatic in ED, Pt has received IVF, continue to monitor -BP averages 130-140 systolic per outpatient clinic notes -Repeat orthostatics. -Continue home atenolol #Hypokalemia -No T wave flattening, though patient does demonstrate a mildly lengthened QTc -On potassium sparring-diuretic, 10-days of Bactrim which should, in theory, increase serum potassium -Pt does carry a history of loose stools, though she denies dedra diarrhea, consider GI loss as possible contributing factor. -Mag monitoring and repletion as below, tele, BMP Q4H #Hypomagnesemia -IV repletion, continued monitoring #Urinary retention -Treated for a UTI by PCP with 10 days of Bactrim. Patient reports she took her last dose the morning of presentation. -Patient was seen by Dr. Patricio of urology on 04/05/20. -Multifactorial etiology suspected including a history of spinal stenosis, or pelvic surgeries and possibly Spiriva. -CIC with 14 Martiniquais straight tip catheter 4 times daily. -Urology follow-up scheduled for 04/21. #H/H -Hgb of 10.8 on admission, decreased from most recent value of 11.5 on 04/04/20 -Iron studies and hemoccult #COPD -Spiriva (possible contribution to urinary retention), albuterol nebulizer -Oxygen titration orders #Atrial fibrillation, paroxysmal -Rate controlled with atenolol, aspirin -No anticoagulation given risk of bleeding secondary to numerous bowel surgeries #Hypothyroid -TSH/fT4 over 0.697/2.57 -Home levothyroxine 75 g DVT PROPHYLAXIS: MILAGRO/SEQ CODE STATUS: DNR/DNI DISPOSITION: Anticipate >2 night stay Vital Signs Vital Signs Date Time Temp Pulse Resp B/P (MAP) Pulse Ox O2 Delivery O2 Flow Rate FiO2 11/21/20 19:15 78 18 168/75 (106) 97 Room Air 04/09/20 15:22 96.3 Laboratory Data Labs 24H Laboratory Tests 2 04/09/20 16:04: Immature Granulocyte % (Auto) 0.6, Neutrophils (%) (Auto) 70.8H, Lymphocytes (%) (Auto) 16.3L, Monocytes (%) (Auto) 11.5H, Eosinophils (%) (Auto) 0.6, Basophils (%) (Auto) 0.2, Neutrophils # (Auto) 7.4, Lymphocytes # (Auto) 1.7, Monocytes # (Auto) 1.2H, Eosinophils # (Auto) 0.1, Basophils # (Auto) 0.0, Nucleated Red Blood Cells % (auto) 0.0, Prothrombin Time 13.0, Prothromb Time International Ratio 0.96, Activated Partial Thromboplast Time 29.1, Anion Gap 6L, Glomerular Filtration Rate > 60.0, Osmolality 237L, Calcium Level 9.8, Magnesium Level 1.5L, Total Bilirubin 0.6, Direct Bilirubin 0.2, Aspartate Amino Transf (AST/SGOT) 16, Alanine Aminotransferase (ALT/SGPT) 16, Alkaline Phosphatase 81, Total Protein 6.4, Albumin 3.5, Albumin/Globulin Ratio 1.2, Lipase 92, Thyroid Stimulating Hormone (TSH) 0.697, Free Thyroxine 2.57H, Coronavirus (COVID-1 9)(PCR) NEGATIVE 04/09/20 17:37: Urine Color YELLOW, Urine Appearance HAZY, Urine pH 6.0, Urine Specific [place] 1.006, Urine Protein NEGATIVE, Urine Glucose (UA) NEGATIVE, Urine Ketones TRACEH, Urine Blood 1+H, Urine Nitrite POSITIVEH, Urine Bilirubin NEGATIVE, Urine Urobilinogen 0.2, Urine Leukocyte Esterase TRACEH, Urine WBC (Auto) 3, Urine RBC (Auto) 1, Urine Hyaline Casts (Auto) 0, Urine Bacteria (Auto) 3+H, Urine Squamous Epithelial Cells 1, Urine Mucus (Auto) SMALL, Urine Sperm (Auto) , Urine Random Osmolality 266L, Urine Random Creatinine 71.4, Urine Random Sodium 46 CBC/BMP Laboratory Tests 04/09/20 16:04 Microbiology Microbiology 04/09/20 Urine Culture, Received Pending 04/09/20 Blood Culture, Received Pending 04/09/20 Blood Culture, Received Pending Home Medications Scheduled Amlodipine Besylate (Amlodipine Besylate) 5 Mg Tablet, 5 MG PO BID Aspirin (Aspirin) 81 Mg Chw, 81 MG PO QHS Atenolol (Atenolol) 50 Mg Tab, 50 MG PO BID Calcium Carbonate (Calcium) 600 Mg Tab, 600 MG PO DAILY Cholecalciferol (Vitamin D3) (Vitamin D3) 1,000 Unit Tablet, 1,000 UNITS PO DAILY Levothyroxine Sodium (Levothyroxine Sodium) 75 Mcg Tab, 75 MCG PO DAILY Rosuvastatin Calcium (Crestor) 10 Mg Tab, 10 MG PO Q2D AT BEDTIME Sodium Chloride (Sodium Chloride) 1 Gm Tablet, 1 GRAM PO BID Tiotropium [place] (Spiriva) 18 Mcg Cap, 1 PUFF INH DAILY @ 1700 Scheduled PRN Albuterol Sulf (Albuterol Sulfate) 2.5 Mg/3 Ml Vial.neb, 1 VIAL NEB QID PRN for SOB/WHEEZING Albuterol Sulfate (Ventolin Hfa) 18 Gm Hfa.aer.ad, 2 PUFFS INH QID PRN for SOB/WHEEZING Allergies Coded Allergies: codeine (Verified Allergy, Unknown, HIVES , 01/15/19) A-FIB/CHADSVASC A-FIB History Current/History of A-Fib/PAF?: Yes Current PO Anticoag Therapy: No GME ATTESTATION GME ATTESTATION My faculty preceptor for this patient encounter was physically present during the encounter and was fully available. All aspects of the patient interview, examination, medical decision making process, and medical care plan development were reviewed and approved by the faculty preceptor. The faculty preceptor is aware and concurs with the plan as stated in the body of this note and will attest to such by his/her cosignature. ATTENDING NOTE TIME OF SERVICE 945PM is a 74 yr old w a hx of HTN, COPD, Afib and Hypothyroidism who presented w c/o dizziness & weakness is admitted for management of HTN Urgency, and multiple electrolyte imbalances. # Dizziness likely 2/2 HTN Urgency and or Orthostasis / Labile BP # Euvolemic hypotonic hyponatremia. Likely idiosyncratic reaction to chlorthalidone # Unsteady gait & weakness 2/2 Hypokalemia # Hypokalemia 2/2 hypomagnesemia. Since TTKG is <3 hypokalemia is extrarenal # Hypomagnesemia likely 2/2 hypokalemia. Since fractional excretion of Mg is <3% (2.5%) hypomagnesemia is not due to renal magnesium wasting # Metabolic Alkalosis 2/2 chlorthalidone #Overcorrection of Hyponatremia. D5W was administered for a few hours Plan: admit to PCU / treat HTN (dc chlorthalidone and start amlodipine for BP), f/u serial Na / replete lytes as needed / f/u iron studies, B12, folate and stool occult / will ask the day time team to refer the patient to a HTN Specialist or Unit Director on an out pt basis for a work-up for secondary causes of HTN and to titrate her meds especially bc her BP is very labile AUTUMN DURON DO Apr 09, 2020 20:06 JOY TESFAYE MD Apr 10, 2020 02:13
[2020-04-09] MEDS ORDERED: ACETAMINOPHEN TAB 650MG DOSE (2X325MG) PO PRN (20:45)
[2020-04-09 20:53] LABS: BLOOD UREA NITROGEN 6 MG/DL (7-18); CALCIUM LEVEL 9.2 MG/DL (8.8-10.2); CARBON DIOXIDE LEVEL 30 MEQ/L (21-32); CHLORIDE LEVEL 82 MEQ/L (98-107); CREATININE FOR GFR 0.79 MG/DL (0.55-1.30); GLOMERULAR FILTRATION RATE > 60.0 (>39); GLUCOSE, FASTING 111 MG/DL (70-100); POTASSIUM SERUM 3.3 MEQ/L (3.5-5.1); SODIUM LEVEL 120 MEQ/L (136-145)
[2020-04-09] MEDS ORDERED: ALBUTEROL 90 MCG/ACT 8GM HFA INHALER INH PRN (21:00)
[2020-04-09] MEDS ORDERED: ROSUVASTATIN 10 MG TAB (CRESTOR) PO SCH (21:00)
[2020-04-09 21:21] VITALS: BP 145/65
[2020-04-09] MEDS: ASPIRIN 81 MG CHEW TABLET PO SCH (22:29)
[2020-04-09] MEDS: atenoloL 50 MG TAB PO SCH (22:30)
[2020-04-10] VITALS: BP_SYST 132; BP_SYST 162; BP_DIAS 58; BP_DIAS 86
[2020-04-10 00:29] LABS: BLOOD UREA NITROGEN 7 MG/DL (7-18); CALCIUM LEVEL 9.3 MG/DL (8.8-10.2); CARBON DIOXIDE LEVEL 31 MEQ/L (21-32); CHLORIDE LEVEL 85 MEQ/L (98-107); CREATININE FOR GFR 0.87 MG/DL (0.55-1.30); GLOMERULAR FILTRATION RATE > 60.0 (>39); GLUCOSE, FASTING 115 MG/DL (70-100); MAGNESIUM LEVEL 1.9 MG/DL (1.8-2.4); POTASSIUM SERUM 3.3 MEQ/L (3.5-5.1); SODIUM LEVEL 124 MEQ/L (136-145)
[2020-04-10] MEDS ORDERED: POTASSIUM CHLORIDE 10 MEQ SR TABLET PO ONE (02:00)
[2020-04-10] MEDS ORDERED: D5W 500 ML IV SCH (02:00)
[2020-04-10] MEDS ORDERED: MAGNESIUM OXIDE 400 MG TAB (MAG-OX) PO ONE ×2 (02:00→06:00)
[2020-04-10 04:00] VITALS: BP 134/60
[2020-04-10 04:53] LABS: BLOOD UREA NITROGEN 6 MG/DL (7-18); CALCIUM LEVEL 8.9 MG/DL (8.8-10.2); CARBON DIOXIDE LEVEL 30 MEQ/L (21-32); CHLORIDE LEVEL 85 MEQ/L (98-107); CREATININE FOR GFR 0.85 MG/DL (0.55-1.30); FERRITIN 85 NG/ML (8-252); GLOMERULAR FILTRATION RATE > 60.0 (>39); GLUCOSE, FASTING 118 MG/DL (70-100); IRON (FE) 52 UG/DL (50-170); MAGNESIUM LEVEL 1.7 MG/DL (1.8-2.4); PERCENT SATURATION 18.2 % (13.2-45.0); POTASSIUM SERUM 3.8 MEQ/L (3.5-5.1); SODIUM LEVEL 123 MEQ/L (136-145); TOTAL IRON BINDING CAPACITY 286 UG/DL (250-450)
[2020-04-10 04:54] LABS: MAGNESIUM URINE RANDOM 3.5 MG/DL; POTASSIUM RANDOM URINE 7.7 MEQ/L
[2020-04-10 05:09] LABS: HEMATOCRIT 30.8 % (36.0-47.0); HEMOGLOBIN 10.4 g/dl (12.0-15.5); MEAN CORPUSCULAR HEMOGLOBIN 28.2 pg (27.0-33.0); MEAN CORPUSCULAR HGB CONC 33.8 g/dl (32.0-36.5); MEAN CORPUSCULAR VOLUME 83.5 fl (80.0-96.0); PLATELET COUNT, AUTOMATED 218 10^3/uL (150-450); RED BLOOD COUNT 3.69 10^6/uL (4.00-5.40); WHITE BLOOD COUNT 11.1 10^3/uL (4.0-10.0)
[2020-04-10] MEDS: LEVOTHYROXINE 75MCG TABLET (0.075MG) PO SCH (05:10)
[2020-04-10 08:00] VITALS: BP_SYST 122; BP_SYST 133; BP_SYST 157; BP_DIAS 56; BP_DIAS 63; BP_DIAS 69
[2020-04-10] MEDS ORDERED: TIOTROPIUM INHALER/CAPSULE (SPIRIVA) INH SCH (08:00)
[2020-04-10 09:03] LABS: BLOOD UREA NITROGEN 6 MG/DL (7-18); CALCIUM LEVEL 9.4 MG/DL (8.8-10.2); CARBON DIOXIDE LEVEL 33 MEQ/L (21-32); CHLORIDE LEVEL 86 MEQ/L (98-107); CREATININE FOR GFR 0.95 MG/DL (0.55-1.30); GLOMERULAR FILTRATION RATE > 60.0 (>39); GLUCOSE, FASTING 136 MG/DL (70-100); POTASSIUM SERUM 4.1 MEQ/L (3.5-5.1); SODIUM LEVEL 125 MEQ/L (136-145)
[2020-04-10] MEDS: atenoloL 50 MG TAB PO SCH ×2 (09:29→20:26)
[2020-04-10] MEDS: VITAMIN D 1,000 INTERNATIONAL UNITS TABLET PO SCH (09:30)
[2020-04-10] MEDS ORDERED: ALBUTEROL 90 MCG/ACT 8GM HFA INHALER INH PRN (10:30)
--- NOTE | 2020-04-10 10:31 | IPNPDOC ---
Date Seen The patient was seen on 04/10/20. Progress Note SUBJECTIVE: Patient is seen and examined at the bedside chart it's been reviewed. Overnight patient's sodium level increased from 115 to 125 this morning. She denies headache, changes in vision, confusion, seizure activity. Her chlorthalidone had been held due to severe hyponatremia. She is requesting her Spiriva and inhalers to be resumed as she previously dosed at home. Blood pressure is improved and she denies any chest pain, pressure, tightness or shortness of breath. OBJECTIVE PHYSICAL EXAMINATION: VITAL SIGNS: Please see below. GENERAL: Awake, alert, oriented 3, answering questions appropriately. No respiratory distress HEENT: Pupils equally round, reactive to light and accommodation. No horizontal or vertical nystagmus. Fluent speech , No stridor, no JVD CARDIOVASCULAR: S1, S2, sinus rhythm RESPIRATORY: Clear to auscultation. No wheezing, rales or rhonchi ABDOMINAL:soft, nontender, nondistended, normoactive bowel sounds 4 quadrants EXTREMITIES: No cyanosis, clubbing or pitting edema LABORATORY DATA, IMAGING STUDIES, MICROBIOLOGY: Please see below. ASSESSMENT: 74-year-old female with history of adenocarcinoma of the lung diagnosed July 2014 with metastatic lesions resected, status post left upper lobectomy, colon cancer 1997, status post chemotherapy porcine valve replacement 2000, hypothyroidism, hypercholesterolemia, peripheral arterial disease, COPD, osteop orosis, paroxysmal atrial fibrillation, on aspirin but no anticoagulation, admitted on 04/09/2020 with 2-3 week history of worsening weakness, worse in the past 4 days. Patient was treated for UTI. 10 days ago and had been on Bactrim for her blood pressure. She chronically takes chlorthalidone and was found to have hypertensive urgency. On arrival to the emergency room with blood pressure 177/123. Patient had severe hyponatremia with sodium level of 115. She was admitted for symptomatic anemia as well as hypertensive urgency. PROBLEMS: . Symptomatic hyponatremia related to chlorthalidone Hypertensive urgency History of adenocarcinoma of the lung 2014 with brain metastasis that is post left upper lobectomy and resection of brain metastases History of colon cancer, status post chemotherapy , Hypothyroidism , Hypercholesterolemia Aortic valve replacement, porcine valve. 2000 , Chronic mitral valve prolapse Peripheral arterial disease , Carotid artery disease Left vocal cord paralysis , COPD . Active tobacco abuse with nicotine dependence , Osteoporosis Crohn's disease , Paroxysmal atrial fibrillation not on anticoagulation PLAN: Patient has responded well overnight with increasing sodium level from 115 to 25 with improvement in mentation, most likely related to her chlorthalidone, which has been discontinued. Repeat metabolic panel in 4 hours and continue with present management. Patient is still his seizure risk and will need to be monitored to make sure that there is no significant increase in sodium more than 12 mEq over the past 24 hours. The initial sodium was checked at 1600 on 04/10/2020, with goal sodium of 127, at 4 PM 04/10/2020. Monitor for mental status changes, headache, changes in vision and disorientation. Patient's blood pressure is also improved with current medications. We'll try to avoid diuretics. Patient says that her normal blood pressures 120s-130s. . We will titrate her medications for better hypertensive control. Patient may be continued on all other home medications. She has requested her Spiriva and albuterol to be resumed, both of which have been reordered. Should the patient recover overnight with controlled blood pressure and improve his sodium level without mental status changes, headaches or seizures. Patient may then be discharged home on 04/11/2020 with outpatient follow-up with her primary care physician. [facility]/I&O Vital Signs Date Time Temp Pulse Resp B/P (MAP) Pulse Ox O2 Delivery O2 Flow Rate FiO2 04/10/20 09:30 80 157/69 04/10/20 08:00 97.7 18 97 Room Air I&O- Last 24 Hours up to 6 AM 04/10/20 06:00 Intake Total 1200 ml Output Total 520 ml Balance 680 ml Laboratory Data 24H LABS Laboratory Tests 2 04/09/20 16:04: Immature Granulocyte % (Auto) 0.6, Neutrophils (%) (Auto) 70.8H, Lymphocytes (%) (Auto) 16.3L, Monocytes (%) (Auto) 11.5H, Eosinophils (%) (Auto) 0.6, Basophils (%) (Auto) 0.2, Neutrophils # (Auto) 7.4, Lymphocytes # (Auto) 1.7, Monocytes # (Auto) 1.2H, Eosinophils # (Auto) 0.1, Basophils # (Auto) 0.0, Nucleated Red Blood Cells % (auto) 0.0, Prothrombin Time 13.0, Prothromb Time International Ra deshaun 0.96, Activated Partial Thromboplast Time 29.1, Anion Gap 6L, Glomerular Filtration Rate > 60.0, Osmolality 237L, Calcium Level 9.8, Magnesium Level 1.5L, Total Bilirubin 0.6, Direct Bilirubin 0.2, Aspartate Amino Transf (AST/SGOT) 16, Alanine Aminotransferase (ALT/SGPT) 16, Alkaline Phosphatase 81, Total Protein 6.4, Albumin 3.5, Albumin/Globulin Ratio 1.2, Lipase 92, Thyroid Stimulating Hormone (TSH) 0.697, Free Thyroxine 2.57H, Coronavirus (COVID- 19)(PCR) NEGATIVE 04/09/20 17:37: Urine Color YELLOW, Urine Appearance HAZY, Urine pH 6.0, Urine Specific [place] 1.006, Urine Protein NEGATIVE, Urine Glucose (UA) NEGATIVE, Urine Ketones TRACEH, Urine Blood 1+H, Urine Nitrite POSITIVEH, Urine Bilirubin NEGATIVE, Urine Urobilinogen 0.2, Urine Leukocyte Esterase TRACEH, Urine WBC (Auto) 3, Urine RBC (Auto) 1, Urine Hyaline Casts (Auto) 0, Urine Bacteria (Auto) 3+H, Ur ine Squamous Epithelial Cells 1, Urine Mucus (Auto) SMALL, Urine Sperm (Auto) , Urine Random Osmolality 266L, Urine Random Creatinine 71.4, Urine Random Sodium 46 04/09/20 20:12: Anion Gap 8, Glomerular Filtration Rate > 60.0, Calcium Level 9.2 04/09/20 23:49: Anion Gap 8, Glomerular Filtration Rate > 60.0, Calcium Level 9.3, Magnesium Level 1.9 04/10/20 03:59: Anion Gap 8, Glomerular Filtration Rate > 60.0, Calcium Level 8.9, Magnesium Level 1.7L, Iron Level 52, Total Iron Binding Capacity 286, Transferrin % Saturation 18.2, Ferritin 85 04/10/20 04:10: Nucleated Red Blood Cells % (auto) 0.0 04/10/20 04:20: Urine Random Potassium 7.7, Urine Random Magnesium 3.5 04/10/20 08:13: Anion Gap 6L, Glomerular Filtration Rate > 60.0, Calcium Level 9.4 CBC/BMP Laboratory Tests 04/09/20 16:04 04/09/20 20:12 04/09/20 23:49 04/10/20 03:59 04/10/20 04:10 04/10/20 08:13 Microbiology Microbiology 04/10/20 Stool Occult Blood ([facility]) - Final, Complete 04/09/20 Urine Culture, Received Pending 04/09/20 Blood Culture, Received Pending 04/09/20 Blood Culture, Received Pending TREV FELIX MD Apr 10, 2020 10:31
[2020-04-10] MEDS: ALBUTEROL 90 MCG/ACT 8GM HFA INHALER INH SCH ×3 (11:53→20:19)
[2020-04-10 12:00] VITALS: BP 130/60
[2020-04-10 13:13] LABS: CALCIUM LEVEL 9.4 MG/DL (8.8-10.2); CREATININE FOR GFR 1.07 MG/DL (0.55-1.30); GLOMERULAR FILTRATION RATE 53.2 (>39); POTASSIUM SERUM 4.2 MEQ/L (3.5-5.1)
[2020-04-10 16:00] VITALS: BP 122/64
[2020-04-10 16:23] LABS: CALCIUM LEVEL 9.6 MG/DL (8.8-10.2); CREATININE FOR GFR 1.05 MG/DL (0.55-1.30); GLOMERULAR FILTRATION RATE 54.4 (>39); POTASSIUM SERUM 4.6 MEQ/L (3.5-5.1)
[2020-04-10] MEDS ORDERED: AMLO1TAB24 PO (18:02)
[2020-04-10 20:00] VITALS: BP 121/52
[2020-04-10] MEDS: ASPIRIN 81 MG CHEW TABLET PO SCH (20:25)
[2020-04-10] MEDS: amLODIPine 5 MG TAB PO SCH (20:27)
[2020-04-10] MEDS ORDERED: ROSUVASTATIN 10 MG TAB (CRESTOR) PO SCH (21:00)
[2020-04-10 21:26] LABS: CALCIUM LEVEL 9.5 MG/DL (8.8-10.2); CREATININE FOR GFR 0.98 MG/DL (0.55-1.30); GLOMERULAR FILTRATION RATE 58.9 (>39); POTASSIUM SERUM 4.2 MEQ/L (3.5-5.1)
[2020-04-11] VITALS: BP 130/62
[2020-04-11 00:39] LABS: BLOOD UREA NITROGEN 12 MG/DL (7-18); CALCIUM LEVEL 9.2 MG/DL (8.8-10.2); CARBON DIOXIDE LEVEL 29 MEQ/L (21-32); CHLORIDE LEVEL 93 MEQ/L (98-107); CREATININE FOR GFR 0.84 MG/DL (0.55-1.30); GLOMERULAR FILTRATION RATE > 60.0 (>39); GLUCOSE, FASTING 90 MG/DL (70-100); POTASSIUM SERUM 4.6 MEQ/L (3.5-5.1); SODIUM LEVEL 127 MEQ/L (136-145)
[2020-04-11 04:00] VITALS: BP 121/52
[2020-04-11] MEDS: LEVOTHYROXINE 75MCG TABLET (0.075MG) PO SCH (05:18)
[2020-04-11 05:25] LABS: HEMATOCRIT 29.8 % (36.0-47.0); MEAN CORPUSCULAR HEMOGLOBIN 29.1 pg (27.0-33.0); MEAN CORPUSCULAR HGB CONC 33.6 g/dl (32.0-36.5); MEAN CORPUSCULAR VOLUME 86.6 fl (80.0-96.0); PLATELET COUNT, AUTOMATED 188 10^3/uL (150-450); RED BLOOD COUNT 3.44 10^6/uL (4.00-5.40); WHITE BLOOD COUNT 10.7 10^3/uL (4.0-10.0)
[2020-04-11 05:45] LABS: BLOOD UREA NITROGEN 10 MG/DL (7-18); CALCIUM LEVEL 8.9 MG/DL (8.8-10.2); CARBON DIOXIDE LEVEL 29 MEQ/L (21-32); CHLORIDE LEVEL 93 MEQ/L (98-107); CREATININE FOR GFR 0.74 MG/DL (0.55-1.30); GLOMERULAR FILTRATION RATE > 60.0 (>39); GLUCOSE, FASTING 94 MG/DL (70-100); POTASSIUM SERUM 4.4 MEQ/L (3.5-5.1); SODIUM LEVEL 128 MEQ/L (136-145)
[2020-04-11] MEDS: amLODIPine 5 MG TAB PO SCH (07:33)
[2020-04-11] MEDS: VITAMIN D 1,000 INTERNATIONAL UNITS TABLET PO SCH (07:33)
[2020-04-11 07:34] VITALS: BP 138/63
[2020-04-11] MEDS: atenoloL 50 MG TAB PO SCH (07:34)
[2020-04-11] MEDS ORDERED: SODI1TAB12 PO (09:05)
--- NOTE | 2020-04-11 09:11 | DS.PDOC ---
Discharge Summary General Date of Admission Apr 09, 2020 at 19:21 Date of Discharge 04/11/20 Discharge Summary DISCHARGE DIAGNOSES: Symptomatic hyponatremia related to chlorthalidone Hypertensive urgency History of adenocarcinoma of the lung 2014 with brain metastasis that is post left upper lobectomy and resection of brain metastases History of colon cancer, status post chemotherapy Hypothyroidism Hypercholesterolemia Aortic valve replacement, porcine valve. 2000 Chronic mitral valve prolapse Peripheral arterial disease Carotid artery disease Left vocal cord paralysis COPD Active tobacco abuse with nicotine dependence, refuses to QUIT(smoking cessation counselling provided) Osteoporosis Crohn's disease Paroxysmal atrial fibrillation not on anticoagulation DISCHARGE MEDICATIONS: SEE BELOW. ALLERGIES:SEE BELOW DISCHARGE INSTRUCTIONS: Patient has a vascular surgical appointment today with Dr. Sparrow. She has refused to quit smoking. She is currently on statins and blood pressure me dications, which she should continue. Primary care physician appointment within 5 days of hospital discharge and to obtain a basic metabolic panel to monitor her sodium level. Avoid diuretics due to severe symptomatic hyponatremia with sodium [id number]. HOSPITAL COURSE: 74-year-old female with history of adenocarcinoma of the lung diagnosed July 2014 with metastatic lesions resected, status post left upper lobectomy, colon cancer 1997, status post chemotherapy porcine valve replacement 2000, hy pothyroidism, hypercholesterolemia, peripheral arterial disease, COPD, osteoporosis, paroxysmal atrial fibrillation, on aspirin but no anticoagulation, admitted on 04/09/2020 with 2-3 week history of worsening weakness, worse in the past 4 days. Patient was treated for UTI. 10 days ago and had been on Bactrim for her blood pressure. She chronically takes chlorthalidone and was found to have hypertensive urgency. On arrival to the emergency room with blood pressure 177/123. Patient had severe hyponatremia with sodium level of 115. She was admitted for symptomatic anemia as well as hypertensive urgency. Losartan chlorthalidone were held during the admission. She was kept on every 6 hourly sodium levels put on fluid restriction with resultant improvement in sodium level from 1:15 to 128 on the day of discharge without any mental status changes. Her blood pressure did not respond to 2.5 mg of Norvasc which had been increased to 5 mg twice a day and she was continued on her beta [place] with good control of her blood pressure back to her normal of 120 to 130 systolic. She was advised to stop smoking but was resistant and did not want to quit due to severe peripheral arterial disease, nicotine patch was not given. She has a follow-up appointment with vascular surgery today for revascularization recommendations down the line. Patient was instructed to keep an INR blood pressure at home as well as to avoid further tobacco abuse. Family and patient were advised that should mental status changes occur. She is to have a repeat basic metabolic panel to be monitored by her primary care doctor. DISCHARGE PHYSICAL EXAMINATION: VITAL SIGNS: Please see below. GENERAL: Awake, alert, oriented 3, answering questions appropriately. No respiratory distress HEENT: Pupils equally round, reactive to light and accommodation. No horizontal or vertical nystagmus. Fluent speech No stridor, no JVD CARDIOVASCULAR: S1, S2, sinus rhythm RESPIRATORY: Clear to auscultation. No wheezing, rales or rhonchi ABDOMINAL:soft, nontender, nondistended, normoactive bowel sounds 4 quadrants EXTREMITIES: No cyanosis, clubbing or pitting edema LABORATORY DATA, IMAGING STUDIES, MICROBIOLOGY: Please see below. TIME SPENT ON DISCHARGE 30 MINUTES PROBLEMS: Vital Signs/I&Os Vital Signs Date Time Temp Pulse Resp B/P (MAP) Pulse Ox O2 Delivery O2 Flow Rate FiO2 04/11/20 07:34 70 138/63 04/11/20 04:00 96.8 18 99 Room Air I&O- Last 24 Hours up to 6 AM 04/11/20 06:00 Intake Total 810 ml Output Total 1600 ml Balance -790 ml Laboratory Data Labs 24H Laboratory Tests 2 04/10/20 12:37: Anion Gap 5L, Glomerular Filtration Rate 53.2, Calcium Level 9.4 04/10/20 15:48: Anion Gap 6L, Glomerular Filtration Rate 54.4, Calcium Level 9.6 04/10/20 20:54: Anion Gap 4L, Glomerular Filtration Rate 58.9, Calcium Level 9.5 04/11/20 00:05: Anion Gap 5L, Glomerular Filtration Rate > 60.0, Calcium Level 9.2 04/11/20 05:06: Nucleated Red Blood Cells % (auto) 0.0, Anion Gap 6L, Glomerular Filtration Rate > 60.0, Calcium Level 8.9, Magnesium Level 2.0 CBC/BMP Laboratory Tests 04/10/20 12:37 04/10/20 15:48 04/10/20 20:54 04/11/20 00:05 04/11/20 05:06 Microbiology Microbiology 04/10/20 Stool Occult Blood ([facility]) - Final, Complete 04/09/20 Urine Culture - Final, Complete Serratia Marcescens 04/09/20 Blood Culture - Preliminary, Resulted No growth after 24 hours . All specim... 04/09/20 Blood Culture - Preliminary, Resulted No growth after 24 hours . All specim... Discharge Medications Scheduled Amlodipine Besylate (Amlodipine Besylate) 5 Mg Tablet, 5 MG PO BID Aspirin (Aspirin) 81 Mg Chw, 81 MG PO QHS, (Reported) Atenolol (Atenolol) 50 Mg Tab, 50 MG PO BID, (Reported) Calcium Carbonate (Calcium) 600 Mg Tab, 600 MG PO DAILY, (Reported) Cholecalciferol (Vitamin D3) (Vitamin D3) 1,000 Unit Tablet, 1,000 UNITS PO DAILY, (Reported) Levothyroxine Sodium (Levothyroxine Sodium) 75 Mcg Tab, 75 MCG PO DAILY, (Reported) Rosuvastatin Calcium (Crestor) 10 Mg Tab, 10 MG PO Q2D, (Reported) AT BEDTIME Sodium Chloride (Sodium Chloride) 1 Gm Tablet, 1 GRAM PO BID Tiotropium [place] (Spiriva) 18 Mcg Cap, 1 PUFF INH DAILY, (Reported) @ 1700 Scheduled PRN Albuterol Sulf (Albuterol Sulfate) 2.5 Mg/3 Ml Vial.neb, 1 VIAL NEB QID PRN for SOB/WHEEZING, (Reported) Albuterol Sulfate (Ventolin Hfa) 18 Gm Hfa.aer.ad, 2 PUFFS INH QID PRN for SOB/WHEEZING, (Reported) Allergies Coded Allergies: codeine (Verified Allergy, Unknown, HIVES , 01/15/19) TREV FELIX MD Apr 11, 2020 09:11
[2020-04-11 10:14] LABS: FOLATE 6.3 NG/ML (>5.4); VITAMIN B12 LEVEL 200 PG/ML (247-911)
== END 2020-04-11 08:11 | disposition home or self-care (01) ==
LOC: M ED 15:14 → M ED INP 19:21 → ENRESERV 20:14 → M PCU 21:21
PROVIDERS: ADMIT Internal Medicine; ATTEND Internal Medicine
DX: E87.1 Hypo-osmolality and hyponatremia (principal); I16.0 Hypertensive urgency; E87.6 Hypokalemia; E03.9 Hypothyroidism, unspecified; E78.00 Pure hypercholesterolemia, unspecified; Z85.118 Personal history of other malignant neoplasm of bronchus and lung; Z85.841 Personal history of malignant neoplasm of brain; Z85.038 Personal history of other malignant neoplasm of large intestine; I10 Essential (primary) hypertension; Z95.2 Presence of prosthetic heart valve; I34.1 Nonrheumatic mitral (valve) prolapse; I73.9 Peripheral vascular disease, unspecified; I25.10 Atherosclerotic heart disease of native coronary artery without angina pectoris; J44.9 Chronic obstructive pulmonary disease, unspecified; J38.01 Paralysis of vocal cords and larynx, unilateral; F17.218 Nicotine dependence, cigarettes, with other nicotine-induced disorders; R33.9 Retention of urine, unspecified; M81.0 Age-related osteoporosis without current pathological fracture; K50.90 Crohn's disease, unspecified, without complications; I48.0 Paroxysmal atrial fibrillation; Z79.899 Other long term (current) drug therapy; Z79.82 Long term (current) use of aspirin; Z88.5 Allergy status to narcotic agent; Z90.2 Acquired absence of lung [part of]
CPT/HCPCS: 36415; 51701; 70450; 71045; 80047; 80048; 80076; 81001; 82270; 82570; 82607; 82728; 82746; 83550; 83605; 83690; 83735; 83930; 83935; 84133; 84300; 84439; 84443; 84484; 85025; 85027; 85610; 85730; 87040; 87088; 87186; 93005; 93041; 94640; 94760; 96361; 96374; 97161; 99285; G0378; J3475; U0002

== ENCOUNTER → 2020-04-12 | Outpatient (REF) | payer MEDICARE ==
[~2020-04-12] MED LIST changes: +ALBU83IN NEB; +AMLO1TAB24 PO; +D31000TA2 PO; +NOXI1TAB PO; +SODI1TAB12 PO; +VENTAER INH
[2020-04-12 16:45] LABS: CALCIUM LEVEL 9.8 MG/DL (8.8-10.2); CREATININE FOR GFR 1.22 MG/DL (0.55-1.30); GLOMERULAR FILTRATION RATE 45.7 (>39); POTASSIUM SERUM 4.9 MEQ/L (3.5-5.1)
== END ==
LOC: M SFHCADAM 12:04
PROVIDERS: ATTEND Physician Assistant Medical
DX: E87.1 Hypo-osmolality and hyponatremia (principal)

== ENCOUNTER → 2020-04-18 | Outpatient (CLI) | payer MEDICARE ==
[2020-04-18 12:34] LABS: BLOOD UREA NITROGEN 14 MG/DL (7-18); CALCIUM LEVEL 10.5 MG/DL (8.8-10.2); CARBON DIOXIDE LEVEL 31 MEQ/L (21-32); CHLORIDE LEVEL 97 MEQ/L (98-107); CREATININE FOR GFR 0.92 MG/DL (0.55-1.30); GLOMERULAR FILTRATION RATE > 60.0 (>39); GLUCOSE, FASTING 109 MG/DL (70-100); POTASSIUM SERUM 4.2 MEQ/L (3.5-5.1); SODIUM LEVEL 134 MEQ/L (136-145)
== END ==
LOC: M WUC 09:49
PROVIDERS: ATTEND Family Medicine
DX: E87.1 Hypo-osmolality and hyponatremia (principal)

== ENCOUNTER → 2020-04-26 | Outpatient (CLI) | payer MEDICARE ==
--- NOTE | 2020-04-26 15:35 | REPMRS ---
Patient History The patient states she has not had a clinical breast exam in over a year. Family history of breast cancer at age 90 in mother. Digital Woman Screen Mammo: April 26, 2020 - Exam #: [id number] Bilateral CC and MLO view(s) were taken. Technologist: Danae Posada Technologist Prior study comparison: April 27, 2019, bilateral digital woman screen mammo performed at [facility]. April 14, 2018, bilateral digital woman screen mammo performed at [facility]. April 10, 2017, digital woman screen mammo performed at [facility]. FINDINGS: There are scattered fibroglandular densities. The Volpara volumetric breast density category is:B. There has been no change in the appearance of the mammogram from the prior studies. There is a mild amount of scattered fibroglandular density which is fairly symmetric. There is no interval development of dominant mass, architectural distortion, or grouped microcalcification suggestive of malignancy. 3-D tomosynthesis shows no additional findings. Assessment: BI-RADS/ACR category 1 mammogram. Negative Mammogram. Recommendation Routine screening mammogram of both breasts in 1 year (for women over age 40). This patient's [facility] Lifetime Breast Cancer Risk is estimated at 3.2 %. This mammogram was interpreted with the aid of an FDA-approved computer-aided dectection system. Electronically Signed By: Grupo Guy MD 04/26/20 [id number]
== END ==
LOC: M WHC 13:46
PROVIDERS: ATTEND Family Medicine
DX: Z12.31 Encounter for screening mammogram for malignant neoplasm of breast (principal); Z80.3 Family history of malignant neoplasm of breast

== ENCOUNTER → 2020-04-26 | Outpatient (CLI) | payer MEDICARE ==
[~2020-04-26] MED LIST changes: +CLOP75TA2 PO; +LISI10TA22 PO; -LISI10TA4 PO
--- NOTE | 2020-04-26 17:12 | DEXAMM ---
INDICATION: M81.0 AGE RELATED OSTEOPOROSIS. COMPARISON: Multiple prior studies, the most recent of which is from April 14, 2018 and the most remote is from May 06, 2001.. TECHNIQUE: Bone density was measured using dual-energy x-ray absorptionmetry (DEXA). FINDINGS: AP SPINE L1-L4 BMD 1.175 g/cm2 Young Adult T-Score -0.2 Age Matched Z-Score 1.6. LT FEMUR, TOTAL BMD 0.612 g/cm2 Young Adult T-Score -3.1 Age Matched Z-Score -1.4. LT NECK BMD 0.658 g/cm2 Young Adult T-Score -2.7 Age Matched Z-Score -0.8. IMPRESSION: There is normal bone density of the spine. There is osteoporosis of the left hip. The density of the spine has increased 34.9% since the initial exam on May 06, 2001. The density of the spine increased 4.4% since most recent exam on April 14, 2018. The density of the left hip has increased 3.2% since initial exam on May 06, 2001. The density of the left hip has decreased 1.3% since most recent exam on April 14, 2018. FOLLOW-UP: Recommendation for the next bone density exam: 2 years. <Electronically signed by Grupo Guy > 04/26/20 [id number]
== END ==
LOC: M WHC 13:55
PROVIDERS: ATTEND Internal Medicine Endocrinology, Diabetes & Metabolism
DX: Z12.31 Encounter for screening mammogram for malignant neoplasm of breast (principal); M81.0 Age-related osteoporosis without current pathological fracture; Z80.3 Family history of malignant neoplasm of breast
CPT/HCPCS: 77063; 77067; 77080; G0463

== ENCOUNTER 2020-05-17 08:51 | Observation (INO) | payer MEDICARE ==
[~2020-05-17] VITALS: Ht 157.5 cm; Wt 52.0 kg
[~2020-05-17 08:51] MED LIST changes: -CLOP75TA2 PO; -LISI10TA22 PO; +LISI10TA4 PO
[2020-05-17] MEDS ORDERED: ISOVUE-300 61% 50ML VIAL As Ordered ONE (09:08)
[2020-05-17] MEDS ORDERED: LIDOCAINE 1% MDV 20ML VIAL As Ordered ONE (09:08)
[2020-05-17] MEDS ORDERED: fentaNYL 100 MCG/2 ML INJECTION (J3010) As Ordered ONE (09:31)
[2020-05-17] MEDS ORDERED: MIDAZOLAM INJ 2MG/2ML VIAL (J2250 PER 1MG) As Ordered ONE (09:31)
[2020-05-17 09:32] LABS: HEMATOCRIT 36.4 % (36.0-47.0); HEMOGLOBIN 11.1 g/dl (12.0-15.5); MEAN CORPUSCULAR HEMOGLOBIN 27.7 pg (27.0-33.0); MEAN CORPUSCULAR HGB CONC 30.5 g/dl (32.0-36.5); MEAN CORPUSCULAR VOLUME 90.8 fl (80.0-96.0); PLATELET COUNT, AUTOMATED 218 10^3/uL (150-450); RED BLOOD COUNT 4.01 10^6/uL (4.00-5.40); WHITE BLOOD COUNT 12.4 10^3/uL (4.0-10.0)
[2020-05-17 09:53] LABS: BLOOD UREA NITROGEN 12 MG/DL (7-18); CALCIUM LEVEL 9.9 MG/DL (8.8-10.2); CARBON DIOXIDE LEVEL 33 MEQ/L (21-32); CHLORIDE LEVEL 100 MEQ/L (98-107); CREATININE FOR GFR 0.94 MG/DL (0.55-1.30); GLOMERULAR FILTRATION RATE > 60.0 (>39); GLUCOSE, FASTING 117 MG/DL (70-100); SODIUM LEVEL 138 MEQ/L (136-145)
--- NOTE | 2020-05-17 12:03 | ROOPDOC ---
[facility] Report Of Operation Report of Operation DATE OF PROCEDURE: 05/17/20 PREPROCEDURE DIAGNOSES: Atherosclerosis in the yocha dehe arteries was claudication progressing to rest pain POSTPROCEDURE DIAGNOSES: Same PROCEDURE: 1. Ultrasound-guided access left common femoral artery 2. Left iliac arteriogram and left lower extremity runoff to proximal tibials through left femoral sheath 3. Attempt to cross left iliac artery occlusions, aborted 4. Ultrasound-guided access right common femoral artery 5. Right iliac arteriogram and right lower extremity runoff to proximal tibials through right femoral sheath 6. Cross near occlusions right iliac arteries and predilated with 6 x 100 [place] balloon 7. Stent right iliac vessels with 8 x 57 balloon expandable express stent common iliac artery origin to external iliac artery, and distal extension with a 7 x 57 balloon expandable express stent, then a 6 x 57 balloon expandable express stent. 8. Completion arteriogram 9. Mynx closure bilateral common femoral arteries SURGEON: Nicolle Ross MD ANESTHESIA: Local anesthesia 10 mL lidocaine. Moderate intravenous conscious sedation was supervised by Dr. Ross. The patient was independent until he monitored by registered nurse assigned to the Department of radiology using automated blood pressure, EKG, and pulse oximetry. A detailed sedation record is permanently stored in the hospital information system. The following is a brief sedation record: Start time 10:24, stop time 11:21, Versed 1.5 mg IV, fentanyl 75 g IV, heparin 4000 units IV. CONTRAST: 36 mL Isovue-300 INDICATION FOR PROCEDURE: This is a very pleasant 75-year-old patient with an extensive history of peripheral vascular disease status post interventions with other providers in the past, lost to follow-up for many years, new to our practice with complaints of worsening short distance long recovery time claudication progressing to rest pain in the bilateral lower extremities, right greater than left. Risks benefits and alternatives to an arteriogram potential intervention were explained to the patient and she is agreeable to proceed. Informed consent was obtained. INTERPRETATION: 1. The left common iliac artery is occluded at the origin and reconstitutes at the external iliac artery through collaterals. It is heavily calcified, and there is heavy plaque in the common femoral artery as well. After attempting to cross the iliac occlusion, there was no extravasation or embolization. We were ultimately unsuccessful this was aborted. The left femoral artery is heavily calcified with bulky plaque, and there is some flow into the profunda and the SFA which are both patent but ectatic and calcified. There appears to be decent runoff into the proximal tibials, but a distal tibial runoff was not performed due to washout of contrast from such limited inflow at the femoral. 2. The distal aorta is widely patent although calcified and ectatic. The right common iliac artery, hypogastric, and external iliac artery are heavily diseased with thick calcified plaque, nearly occluded. After crossing the iliac system is dilating, we did have improved flow through the right iliac system. After stenting from the distal aorta to the distal external iliac artery on the right, we had widely patent inflow through the iliac system with improved flow into the femoral system, although it was difficult to appreciate this due to the heavy near occlusive plaque in the right common femoral artery. 3. Right lower extremity arteriogram was difficult to perform due to limited inflow due to the near occlusive plaque in the right common femoral artery. However, it appears that the patient has some flow through the proximal right superficial femoral artery, then it occludes and reconstitutes [id number] with collaterals from the profunda. There appears to be decent runoff into the proximal tibials, but distal tibial arteriogram was not performed due to washout of contrast due to such limited inflow at the femoral. REPORT OF OPERATION: The patient was brought to the angiographic suite in stable condition. Her bilateral groins were prepped and draped in sterile fashion. A timeout was performed. Local anesthesia was a director of estate to skin and subcutaneous tissue over the left common femoral artery. A microneedle was used to access the artery under ultrasound guidance. A wire was passed through this access and the needle was removed. A 4 Amharic sheath was placed and flushed with saline. We attempted to pass a Glidewire up through the iliac system but met resistance almost immediately. Eventually, we were able to navigate the wire in a subintimal plane up to the origin of the common iliac artery, but we could not reenter the true lumen. We attempted to cross the occlusion for quite some time, but were unsuccessful. Iliac arteriograms from the dissection plane as well as from the sheath were performed. Please interpretation above. We then performed a left lower extremity runoff to see what her outflow was if we were to do open revascularization for iliac occlusion in the future. Please interpretation above. Ultrasound was used to gain access to the right common femoral artery with a microneedle and a wire was passed through this access and the needle was removed. This was a very challenging access due to the fact the patient has near occlusive heavy calcified plaque throughout the left common femoral artery. Next, we spent quite a bit time trying to navigate Glidewire through a near occlusive plaque in the right iliac system. Eventually, we were able to cross into the distal aorta, and a flushing catheter was advanced and an aortoiliofemoral arteriogram was performed. Please interpretation above. We then advanced the wire well into the aorta and exchange the sheath for 7 Amharic sheath in the right groin. We then predilated the iliac system with a 6 x 100 [place] balloon for several two-minute inflations. Following this, we did have improved flow but still such abysmal runoff due to near occlusion in the femoral. We stented the inflow on the right, starting proximally with an 8 x 57 express stent, 1 cm overlap distal with a 7 x 57 express stent, 1 cm overlap distal with a 6 x 57 express stent. This allowed widely patent inflow from the aorta through the common iliac artery proximally and external iliac artery distally. Less than 10% residual stenosis was noted after multiple reinflation to the balloons after stenting. No extravasation was noted. We did have a left flow through the right hypogastric and we did preprocedure, likely due to the heavy plaque that was mobilized during stenting. Following stent placement, we had flow through the heavily diseased common femoral artery into the proximal SFA and profunda. No extravasation embolization or dissection noted. We then deployed Mynx closure devices and both common femoral arteries. Pressure was held at each groin for 10 minutes for good hemostasis. The patient was then taken to recovery in stable condition. She tolerated the procedure and the sedation well. ESTIMATED BLOOD LOSS: Approximately 5 mL. COMPLICATIONS: None. PLAN: It is okay to resume home diet and medications. I spoke with the patient's daughter postprocedure. She indicated that the patient had a GI bleed the last time she was on Plavix, and that her farrowing worker would prefer that she not take Plavix or any anticoagulation. I expressed to her that we are at risk for stent thrombosis without Plavix, but that these are larger stents so it is possible that they will do okay without it. We certainly have to weigh the risks and benefits of any blood thinners in a patient with a history of recurrent GI bleeds. I discussed with her that we planned to discuss with the patient an option for bilateral common femoral endarterectomies, which she would greatly benefit from, and a right to left femorofemoral bypass. Additionally, we could consider a right femoral to above-knee bypass at the same time, although this does add a level of complication to the surgery by increasing time under anesthesia. However, depending on the patient's needs, if we are worried she will still have lifestyle limiting claudication it may be worthwhile to do this all at the same time as I prefer not to have to do redo surgery on the right groin and leg due to increased risks from scar tissue from previous surgery. I spoke with the patient's daughter about the fact that anything we do as far as bypasses will be at increased risk for failure without Plavix or anticoagulation. Her vascular disease is so profound, I do not anticipate long- term success without some type of blood thinner or Plavix in addition to her e xisting baby aspirin. The patient's daughter says she will discuss this with the patient's farrowing worker and let us know. I will prescribe the patient Plavix today but I told her daughter not to pick it up until it is cleared with the farrowing worker. She is agreeable to this plan. We will see the patient back in clinic to discuss options for open surgery. We appreciate the opportunity to participate in the care of this patient. NICOLLE ROSS MD May 17, 2020 12:03
[2020-05-17] MEDS ORDERED: CLOP75TA2 PO (12:06)
[2020-05-17] MEDS ORDERED: ISOVUE-370 76% 100ML VIAL As Ordered ONE (13:57)
--- NOTE | 2020-05-17 14:37 | REP ---
INDICATION: CHECK FOR BLEED COMPARISON: None TECHNIQUE: Axial noncontrast images from the lung bases to the pubic symphysis with coronal and sagittal reformations. This CT examination was performed using the following dose reduction techniques: Automated exposure control, adjustment of mA and/or kv according to the patient's size, and use of iterative reconstruction technique. FINDINGS: There is a large hematoma/pseudoaneurysm with active arterial extravasation in the right groin with feeding vessel from the common femoral artery and measuring roughly 15 x 8 x 6.5 cm tracking superiorly along the right anterolateral abdominal wall (axial images 70-130). Atherosclerotic changes of the abdominal aorta and branch vessels noted without aneurysm or dissection. Evidence for right common/external iliac arterial stent placement. Celiac axis, superior mesenteric artery, renal arteries, inferior mesenteric artery and iliac arteries are patent although areas of stenosis cannot be completely evaluated. Liver, spleen, pancreas, bilateral adrenal glands are normal. Evidence for prior cholecystectomy noted. Kidneys demonstrate presumed chronic perinephric stranding and scattered rounded hypodensities suggesting cysts. The enteric system is without obstruction or acute inflammatory process. Evidence for prior right hemicolectomy noted. Pelvis demonstrates normal bladder and evidence for prior hysterectomy. No ascites. No free air. No intraperitoneal or retroperitoneal adenopathy. Osseous structures are intact. Lung bases are clear. IMPRESSION: There is a large hematoma/pseudoaneurysm with active arterial extravasation in the right groin with feeding vessel from the common femoral artery and measuring roughly 15 x 8 x 6.5 cm tracking superiorly along the right anterolateral abdominal wall (axial images 70-130). <Electronically signed by Viet Nixon > 05/17/20 [id number]
[2020-05-17] MEDS ORDERED: ONDANSETRON 4MG/2ML VIAL IV PRN (17:45)
[2020-05-17] MEDS ORDERED: PERCOCET 5MG/325MG TAB PO PRN (17:45)
[2020-05-17] MEDS ORDERED: ALBUTEROL 90 MCG/ACT 8GM HFA INHALER INH PRN (18:00)
[2020-05-17] MEDS ORDERED: ALBUTEROL SULFATE 2.5 MG/0.5 ML INH NEB SOLN NEB PRN (18:00)
[2020-05-17 19:30] VITALS: BP 127/56
[2020-05-17] MEDS: ACETAMINOPHEN TAB 650MG DOSE (2X325MG) PO SCH ×2 (19:47→23:54)
[2020-05-17 20:00] VITALS: BP 142/57
[2020-05-17 20:30] VITALS: BP 140/60
[2020-05-17 21:30] VITALS: BP 131/73
[2020-05-17 22:30] VITALS: BP 128/54
[2020-05-17 23:30] VITALS: BP 127/51
[2020-05-18 00:30] VITALS: BP 130/49
[2020-05-18 02:00] VITALS: BP 125/58
[2020-05-18] MEDS: ACETAMINOPHEN TAB 650MG DOSE (2X325MG) PO SCH ×2 (04:47→07:40)
[2020-05-18 06:00] VITALS: BP 133/59
[2020-05-18] MEDS ORDERED: TIOTROPIUM INHALER/CAPSULE (SPIRIVA) INH SCH (08:00)
--- NOTE | 2020-05-18 09:48 | IPNPDOC ---
Date Seen The patient was seen on 05/18/20. Progress Note Patient seen and examined. Doing well postop day 1 status post arteriogram right lower extremity with postop hematoma right groin. Patient was kept overnight on observation because she lives a distance away and I felt it would be safer to observe her overnight and keep her on bedrest. She had hemostasis prior to transferring to the floor, and remained hemostatic overnight. No new bleeding or bruising. Her pain is significantly better today. She only had Tylenol for pain overnight. No new bruising noted today. Her perfusion is stable in both lower extremities, not optimal, but she needs extensive open revascularization to improve it. She has a little bruising on her right labia and at the groin, but no flank thigh or abdominal bruising noted. The patient will eat breakfast today, and then the nurses will ambulate her. If she can safely ambulate without significant pain, is okay for discharge today. Otherwise, we may need to admit her and have physical therapy evaluate her formally. If she discharges today, we will see her back in a week and her appointment should be listed at the top of her preop H&P and orders. She can shower today but she should avoid a tub bath until tomorrow, 48 hours postprocedure. No strenuous exercise or lifting greater than 5 pounds for 1 week. We will see her back in clinic to discuss options for further open surgical intervention and revascularization. As far as the patient's prescription for Plavix, I have discussed with her and her daughter extensively that I feel all revascularization is likely to feel due to her extensive end-stage vascular disease without Plavix or full anticoagulation. The patient has a few concerns that are valid, the first being a history of GI bleeds due to colon cancer resection with bleeding at the anastomosis in the past, but her GI doctor has cleared her for Plavix from that standpoint. Her second concern is that she had a brain tumor removed and her neurosurgeon felt she should be very careful with any anticoagulants or Plavix in the future due to increased risk of intracranial hemorrhage, which certainly we want to clear her for prior to Plavix. Since this was 5 years ago, I think her risk is lower, but I understand her concerns. I told her that even if she took the Plavix every other day or once a week it would be helpful. It's not as good as 7 day a week Plavix, but some is better than none. We will see what her neurosurgeon is comfortable with. For now, she should continue her aspirin daily. We will see her back in a week to discuss options. We appreciate the opportunity to par patrickte in the care of this patient. VS, I&O, 24H, Fishbone Vital Signs/I&O Vital Signs Date Time Temp Pulse Resp B/P (MAP) Pulse Ox O2 Delivery O2 Flow Rate FiO2 05/18/20 06:00 100.1 76 17 133/59 (83) 98 Room Air 05/17/20 11:35 2 I&O- Last 24 Hours up to 6 AM 05/18/20 06:00 Intake Total 400 ml Output Total 150 ml Balance 250 ml NICOLLE PRATHER MD May 18, 2020 09:48
== END 2020-05-18 11:18 | disposition home or self-care (01) ==
LOC: M IRPRO 08:51 → M MSPAV 08:52 → EEVIPCON 09:30 → M IRPRO 19:07 → M MSPAV 19:07 → M IRPRO 05-18 11:18 → M MSPAV 05-18 11:18
PROVIDERS: ADMIT Surgery Vascular Surgery; ATTEND Surgery Vascular Surgery
DX: I70.213 Atherosclerosis of native arteries of extremities with intermittent claudication, bilateral legs (principal); I70.92 Chronic total occlusion of artery of the extremities; L76.32 Postprocedural hematoma of skin and subcutaneous tissue following other procedure; F17.210 Nicotine dependence, cigarettes, uncomplicated; I10 Essential (primary) hypertension; Z79.82 Long term (current) use of aspirin; Z79.890 Hormone replacement therapy; Z79.899 Other long term (current) drug therapy; Z85.118 Personal history of other malignant neoplasm of bronchus and lung; Z85.841 Personal history of malignant neoplasm of brain; Z92.3 Personal history of irradiation
CPT/HCPCS: 37221; 37222; 74174; 75630; 80048; 85027; 94640; 99152; 99153; C1725; C1760; C1769; C1876; C1887; C1894; G0378; J1644; J2250; J3010; Q9967

== ENCOUNTER → 2020-06-03 | Outpatient (REF) | payer MEDICARE ==
[~2020-06-03] MED LIST changes: +CLOP75TA2 PO
[2020-06-03 13:25] LABS: HEMOGLOBIN 9.8 g/dl (12.0-15.5); MEAN CORPUSCULAR HEMOGLOBIN 29.1 pg (27.0-33.0); MEAN CORPUSCULAR HGB CONC 30.6 g/dl (32.0-36.5); PLATELET COUNT, AUTOMATED 316 10^3/uL (150-450); RED BLOOD COUNT 3.37 10^6/uL (4.00-5.40); WHITE BLOOD COUNT 11.1 10^3/uL (4.0-10.0)
== END ==
LOC: M LABDRWAD 12:42
PROVIDERS: ATTEND Internal Medicine Gastroenterology
DX: Z85.038 Personal history of other malignant neoplasm of large intestine (principal); K63.3 Ulcer of intestine; K92.2 Gastrointestinal hemorrhage, unspecified

== ENCOUNTER → 2020-06-23 | Outpatient (REF) | payer MEDICARE ==
[~2020-06-23] MED LIST changes: +LISI10TA22 PO; -LISI10TA4 PO
[2020-06-23 13:21] LABS: HEMATOCRIT 34.3 % (36.0-47.0); HEMOGLOBIN 10.7 g/dl (12.0-15.5); MEAN CORPUSCULAR HEMOGLOBIN 28.8 pg (27.0-33.0); MEAN CORPUSCULAR HGB CONC 31.2 g/dl (32.0-36.5); MEAN CORPUSCULAR VOLUME 92.5 fl (80.0-96.0); PLATELET COUNT, AUTOMATED 212 10^3/uL (150-450); RED BLOOD COUNT 3.71 10^6/uL (4.00-5.40); WHITE BLOOD COUNT 10.3 10^3/uL (4.0-10.0)
[2020-06-23 13:55] LABS: PERCENT SATURATION 21.2 % (13.2-45.0)
== END ==
LOC: M LABDRWAD 12:42
PROVIDERS: ATTEND Internal Medicine Gastroenterology
DX: D64.9 Anemia, unspecified (principal); R53.83 Other fatigue

== ENCOUNTER → 2020-06-27 | Outpatient (CLI) | payer MEDICARE ==
--- NOTE | 2020-06-27 13:58 | REP ---
INDICATION: CLAUDICATION. Right iliac stenting. Aortic disease. COMPARISON: Comparison study March 31, 2020.. TECHNIQUE: Bilateral lower extremity arterial Doppler sonography. FINDINGS: Ankle brachial indices are calculated at 0.9 on the right and 0.6 on the left. Extensive plaquing is observed bilaterally. Monophasic waveforms are again noted throughout the left lower extremity arteries. Velocities are slower on the left than the right throughout. Biphasic waveforms are noted on the right lower extremity arterial tree. There is a 3-1 cyst velocity ratio stenosis in the right profundal. Mild stenosis seen in the right superficial femoral artery. Right lower extremity arterial Doppler velocity chart: Aortic velocity 70 cm/S Right common iliac artery PSV 134 cm/S Right EIA 154 APPRENTICE PLANT ATTENDANT 146 Profundal 283/251/92 Proximal SFA 244/161 Mid SFA 129 Distal SFA 177 Popliteal 64 Proximal ANKIT 864 Tibial-peroneal trunk 69 Proximal ONLINE COMMUNITY MANAGER 63 Distal ONLINE COMMUNITY MANAGER 66 Distal ANKIT 72 Left lower extremity arterial Doppler velocity chart: Aortic velocity 70 cm/S Left common iliac artery PSV 82 cm/S Left EIA 59 Left APPRENTICE PLANT ATTENDANT 52 Profundal 29 Proximal SFA 50 Mid SFA 50 Distal SFA 49 Popliteal 27 Proximal ANKIT 20 Tibial-peroneal trunk 25 Proximal ONLINE COMMUNITY MANAGER 19 Distal ONLINE COMMUNITY MANAGER 15 Distal ANKIT 25 IMPRESSION: Extensive atherosclerotic plaquing. Monophasic waveforms and decreased velocities persist in the left lower extremity. Velocities are improved on the right. <Electronically signed by [employer] Guy > 06/27/20 [id number]
== END ==
LOC: M RAD 10:43
PROVIDERS: ATTEND Physician Assistant
DX: I70.213 Atherosclerosis of native arteries of extremities with intermittent claudication, bilateral legs (principal); F17.210 Nicotine dependence, cigarettes, uncomplicated; R09.89 Other specified symptoms and signs involving the circulatory and respiratory systems

== ENCOUNTER → 2020-07-29 | Outpatient (REF) | payer MEDICARE ==
[2020-07-29 13:11] LABS: HEMATOCRIT 37.8 % (36.0-47.0); HEMOGLOBIN 11.6 g/dl (12.0-15.5); MEAN CORPUSCULAR HEMOGLOBIN 28.6 pg (27.0-33.0); MEAN CORPUSCULAR HGB CONC 30.7 g/dl (32.0-36.5); MEAN CORPUSCULAR VOLUME 93.1 fl (80.0-96.0); PLATELET COUNT, AUTOMATED 198 10^3/uL (150-450); RED BLOOD COUNT 4.06 10^6/uL (4.00-5.40); WHITE BLOOD COUNT 10.1 10^3/uL (4.0-10.0)
[2020-07-29 13:53] LABS: ALBUMIN 3.8 GM/DL (3.2-5.2); ALT/SGPT 19 U/L (12-78); BILIRUBIN,TOTAL 0.2 MG/DL (0.2-1.0); BLOOD UREA NITROGEN 12 MG/DL (7-18); CALCIUM LEVEL 10.9 MG/DL (8.8-10.2); CARBON DIOXIDE LEVEL 35 MEQ/L (21-32); CHLORIDE LEVEL 100 MEQ/L (98-107); CHOLESTEROL LEVEL 158 MG/DL (<200); CHOLESTEROL RISK RATIO 2.633 (<5); CREATININE FOR GFR 0.96 MG/DL (0.55-1.30); FREE T4 1.19 NG/DL (0.76-1.46); GLOMERULAR FILTRATION RATE > 60.0 (>39); GLUCOSE, FASTING 111 MG/DL (70-100); HDL CHOLESTEROL 60 MG/DL (>40); LDL CHOLESTEROL 73 MG/DL (<100); NON-HDL-C 98 MG/DL; SODIUM LEVEL 137 MEQ/L (136-145); TOTAL PROTEIN 7.1 GM/DL (6.4-8.2); TRIGLYCERIDES LEVEL 123 MG/DL (<150)
== END ==
LOC: M SFHCADAM 10:30
PROVIDERS: ATTEND Family Medicine
DX: I11.9 Hypertensive heart disease without heart failure (principal); I73.9 Peripheral vascular disease, unspecified; E03.9 Hypothyroidism, unspecified; Z85.038 Personal history of other malignant neoplasm of large intestine

== ENCOUNTER → 2020-08-30 | Outpatient (REF) | payer MEDICARE ==
[2020-08-30 13:17] LABS: BLOOD UREA NITROGEN 10 MG/DL (7-18); CREATININE FOR GFR 0.88 MG/DL (0.55-1.30); GLUCOSE, FASTING 105 MG/DL (70-100)
[2020-08-30 13:18] LABS: ALBUMIN 3.6 GM/DL (3.2-5.2); CALCIUM LEVEL 11.2 MG/DL (8.8-10.2); CARBON DIOXIDE LEVEL 32 MEQ/L (21-32); CHLORIDE LEVEL 101 MEQ/L (98-107); GLOMERULAR FILTRATION RATE > 60.0 (>39); PHOSPHORUS LEVEL 3.8 MG/DL (2.5-4.9); POTASSIUM SERUM 4.2 MEQ/L (3.5-5.1); SODIUM LEVEL 137 MEQ/L (136-145)
== END ==
LOC: M SFHCADAM 09:01
PROVIDERS: ATTEND Family Medicine
DX: E83.52 Hypercalcemia (principal); C79.31 Secondary malignant neoplasm of brain

== ENCOUNTER → 2020-10-18 | Outpatient (REF) | payer MEDICARE ==
[2020-10-18 13:30] LABS: FREE T4 1.28 NG/DL (0.76-1.46); THYROID STIMULATING HORMONE 0.766 uIU/ML (0.358-3.740)
== END ==
LOC: M LABDRWAD 12:27
PROVIDERS: ATTEND Internal Medicine Endocrinology, Diabetes & Metabolism
DX: E89.0 Postprocedural hypothyroidism (principal)

== ENCOUNTER → 2020-11-01 | Outpatient (REF) | payer MEDICARE | LOC: M LABDRWAD 12:30 | PROVIDERS: ATTEND Internal Medicine Endocrinology, Diabetes & Metabolism | DX: M81.0 Age-related osteoporosis without current pathological fracture (principal) ==

== ENCOUNTER → 2020-11-30 | Outpatient (REF) | payer MEDICARE ==
[2020-11-30 13:18] LABS: ALBUMIN 3.5 GM/DL (3.2-5.2); CALCIUM LEVEL 9.5 MG/DL (8.8-10.2); GLOMERULAR FILTRATION RATE 57.4 (>39); PHOSPHORUS LEVEL 2.9 MG/DL (2.5-4.9); POTASSIUM SERUM 3.5 MEQ/L (3.5-5.1)
[2020-11-30 13:19] LABS: TOTAL 25(OH) VITAMIN D 30.9 NG/ML (30.0-100.0)
== END ==
LOC: M SFHCADAM 10:56
PROVIDERS: ATTEND Family Medicine
DX: E83.52 Hypercalcemia (principal)

== ENCOUNTER → 2021-02-20 | Outpatient (REF) | payer MEDICARE | LOC: M LABDRWAD 12:33 | PROVIDERS: ATTEND Internal Medicine Endocrinology, Diabetes & Metabolism | DX: E83.52 Hypercalcemia (principal) ==

== ENCOUNTER → 2021-02-28 | Outpatient (REF) | payer MEDICARE ==
[2021-02-28 12:53] LABS: HEMATOCRIT 37.9 % (36.0-47.0); HEMOGLOBIN 11.9 g/dl (12.0-15.5); MEAN CORPUSCULAR HGB CONC 31.4 g/dl (32.0-36.5); MEAN CORPUSCULAR VOLUME 89.2 fl (80.0-96.0); PLATELET COUNT, AUTOMATED 191 10^3/uL (150-450); RED BLOOD COUNT 4.25 10^6/uL (4.00-5.40); WHITE BLOOD COUNT 8.8 10^3/uL (4.0-10.0)
[2021-02-28 13:15] LABS: CALCIUM LEVEL 9.9 MG/DL (8.8-10.2); CREATININE FOR GFR 1.04 MG/DL (0.55-1.30); GLOMERULAR FILTRATION RATE 54.8 (>39); POTASSIUM SERUM 3.4 MEQ/L (3.5-5.1)
== END ==
LOC: M LABDRWAD 12:31
PROVIDERS: ATTEND Internal Medicine Cardiovascular Disease
DX: R06.02 Shortness of breath (principal)

== ENCOUNTER → 2021-02-28 | Outpatient (CLI) | payer MEDICARE ==
--- NOTE | 2021-02-28 10:55 | REP ---
INDICATION: SOB COMPARISON: 04/09/2020 TECHNIQUE: PA and lateral. FINDINGS: The mediastinum and cardiac silhouette are stable. Prior sternotomy and CABG as well as cholecystectomy again noted. The lung wyatt are clear and without acute consolidation, effusion, or pneumothorax. The skeletal structures are intact and normal. IMPRESSION: Chronic stable changes. No acute cardiopulmonary process. <Electronically signed by Viet Nixon > 02/28/21 [id number]
== END ==
LOC: M ADAMS 09:35
PROVIDERS: ATTEND Internal Medicine Cardiovascular Disease
DX: R06.02 Shortness of breath (principal); Z90.49 Acquired absence of other specified parts of digestive tract; Z95.1 Presence of aortocoronary bypass graft

== ENCOUNTER → 2021-05-22 | Outpatient (CLI) | payer MEDICARE ==
--- NOTE | 2021-05-22 12:18 | REPMRS ---
Patient History The patient states she has not had a clinical breast exam in over a year. Family history of breast cancer at age 90 in mother. Tomosynthesis is performed. Volpara breast density is b. Tyrer-heavenck lifetime risk of breast cancer 2.7%. No breast complaints today Patient signed the MRS sheet 1st vaccine 06/10-Moderna 2nd vaccine 07/08 3rd vaccine 02/06-left arm Priors on PACS Patient Identification Verified Digital Woman Screen Mammo: May 22, 2021 - Exam #: [id number] Bilateral CC and MLO view(s) were taken. Technologist: Meaghan Marte, Technologist Prior study comparison: April 26, 2020, bilateral digital woman screen mammo performed at [facility]. April 27, 2019, bilateral digital woman screen mammo performed at [facility]. FINDINGS: There are scattered fibroglandular densities. There has been no change in the appearance of the mammogram from the prior studies. There is a mild amount of residual fibroglandular tissue which is fairly symmetric. There is no interval development of dominant mass, architectural distortion, or clustered microcalcification suggestive of malignancy. Assessment: BI-RADS/ACR category 1 mammogram. Negative Mammogram. Recommendation Routine screening mammogram in 1 year (for women over age 40). This mammogram was interpreted with the aid of an FDA-approved computer-aided dectection system. Electronically Signed By: Saleem Johansen MD 05/22/21 [id number]
== END ==
LOC: M WHC 10:51
PROVIDERS: ATTEND Family Medicine
DX: Z12.31 Encounter for screening mammogram for malignant neoplasm of breast (principal)

== ENCOUNTER → 2021-05-24 | Outpatient (REF) | payer MEDICARE ==
[2021-05-24 12:41] LABS: HEMOGLOBIN 12.4 g/dl (12.0-15.5); MEAN CORPUSCULAR HEMOGLOBIN 27.9 pg (27.0-33.0); MEAN CORPUSCULAR HGB CONC 31.8 g/dl (32.0-36.5); MEAN CORPUSCULAR VOLUME 87.6 fl (80.0-96.0); PLATELET COUNT, AUTOMATED 200 10^3/uL (150-450); RED BLOOD COUNT 4.45 10^6/uL (4.00-5.40); WHITE BLOOD COUNT 9.3 10^3/uL (4.0-10.0)
[2021-05-24 13:30] LABS: ALBUMIN 3.3 GM/DL (3.2-5.2); BILIRUBIN,TOTAL 0.3 MG/DL (0.2-1.0); CALCIUM LEVEL 9.8 MG/DL (8.8-10.2); CHOLESTEROL RISK RATIO 3.843 (<5); CREATININE FOR GFR 1.04 MG/DL (0.55-1.30); FREE T4 1.3 NG/DL (0.76-1.46); GLOMERULAR FILTRATION RATE 54.7 (>39); MAGNESIUM LEVEL 2.1 MG/DL (1.8-2.4); POTASSIUM SERUM 3.4 MEQ/L (3.5-5.1); THYROID STIMULATING HORMONE 1.54 uIU/ML (0.358-3.740); TOTAL PROTEIN 6.7 GM/DL (6.4-8.2)
== END ==
LOC: M SFHCADAM 09:49
PROVIDERS: ATTEND Family Medicine
DX: E87.6 Hypokalemia (principal); E03.9 Hypothyroidism, unspecified; C34.90 Malignant neoplasm of unspecified part of unspecified bronchus or lung

== ENCOUNTER → 2021-06-21 | Outpatient (CLI) | payer MEDICARE ==
[~2021-06-21] MED LIST changes: +LOSA50TA28 PO; -LOSA50TA88 PO
== END ==
LOC: M ADAMS 10:44
PROVIDERS: ATTEND Family Medicine
DX: J44.9 Chronic obstructive pulmonary disease, unspecified (principal)

== ENCOUNTER → 2021-09-13 | Outpatient (REF) | payer MEDICARE ==
[~2021-09-13] MED LIST changes: -D31000TA2 PO; +VITA100093 PO
[2021-09-13 13:52] LABS: BLOOD UREA NITROGEN 7 MG/DL (7-18); CARBON DIOXIDE LEVEL 29 MEQ/L (21-32); CHLORIDE LEVEL 105 MEQ/L (98-107); CREATININE FOR GFR 0.84 MG/DL (0.55-1.30); GLOMERULAR FILTRATION RATE > 60.0 (>39); GLUCOSE, FASTING 115 MG/DL (70-100); POTASSIUM SERUM 3.6 MEQ/L (3.5-5.1); SODIUM LEVEL 139 MEQ/L (136-145)
[2021-09-13 13:53] LABS: ALBUMIN 3.5 GM/DL (3.2-5.2); CALCIUM LEVEL 10.4 MG/DL (8.8-10.2); PHOSPHORUS LEVEL 3.2 MG/DL (2.5-4.9)
[2021-09-13 14:41] LABS: HEMOGLOBIN A1c 5.9 %
== END ==
LOC: M SFHCADAM 09:58
PROVIDERS: ATTEND Family Medicine
DX: E87.6 Hypokalemia (principal); R73.03 Prediabetes

== ENCOUNTER → 2022-01-08 | Outpatient (REF) | payer MEDICARE ==
[~2022-01-08] MED LIST changes: +ALBU2.5V10 NEB; -ALBU83IN NEB
[2022-01-08 14:18] LABS: HEMATOCRIT 39.4 % (36.0-47.0); HEMOGLOBIN 12.1 g/dl (12.0-15.5); MEAN CORPUSCULAR HEMOGLOBIN 27.2 pg (27.0-33.0); MEAN CORPUSCULAR HGB CONC 30.7 g/dl (32.0-36.5); MEAN CORPUSCULAR VOLUME 88.5 fl (80.0-96.0); PLATELET COUNT, AUTOMATED 203 10^3/uL (150-450); RED BLOOD COUNT 4.45 10^6/uL (4.00-5.40); WHITE BLOOD COUNT 8.9 10^3/uL (4.0-10.0)
[2022-01-08 15:39] LABS: HEMOGLOBIN A1c 6.1 %
[2022-01-08 15:56] LABS: ALBUMIN 3.3 GM/DL (3.2-5.2); BILIRUBIN,TOTAL 0.5 MG/DL (0.2-1.0); CALCIUM LEVEL 9.8 MG/DL (8.8-10.2); CHOLESTEROL RISK RATIO 3.98 (<5); CREATININE FOR GFR 0.97 MG/DL (0.55-1.30); FREE T4 1.34 NG/DL (0.76-1.46); GLOMERULAR FILTRATION RATE 59.3 (>39); POTASSIUM SERUM 3.8 MEQ/L (3.5-5.1); THYROID STIMULATING HORMONE 1.25 uIU/ML (0.358-3.740); TOTAL PROTEIN 6.8 GM/DL (6.4-8.2)
[2022-01-08 16:22] LABS: TOTAL 25(OH) VITAMIN D 31.4 NG/ML (30.0-100.0)
== END ==
LOC: M SFHCADAM 09:36
PROVIDERS: ATTEND Family Medicine
DX: C34.90 Malignant neoplasm of unspecified part of unspecified bronchus or lung (principal); E03.9 Hypothyroidism, unspecified; I11.9 Hypertensive heart disease without heart failure; E21.0 Primary hyperparathyroidism

== ENCOUNTER → 2022-02-28 | Outpatient (CLI) | payer MEDICARE | LOC: M ADAMS 14:44 | PROVIDERS: ATTEND Internal Medicine Hematology & Oncology | DX: Z85.048 Personal history of other malignant neoplasm of rectum, rectosigmoid junction, and anus (principal); C34.12 Malignant neoplasm of upper lobe, left bronchus or lung; M47.814 Spondylosis without myelopathy or radiculopathy, thoracic region ==

== ENCOUNTER → 2022-03-20 | Outpatient (CLI) | payer MEDICARE ==
[~2022-03-20] MED LIST changes: -DOXY-350 PO; +DOXY-444 PO
[2022-03-20 14:52] LABS: BASO # 0.1 10^3/uL (0.0-0.2); BASO % 0.7 % (0.0-1.0); EOS # 0.2 10^3/uL (0.0-0.5); EOS % 2.1 % (0.0-3.0); HEMATOCRIT 40.9 % (36.0-47.0); HEMOGLOBIN 12.7 g/dl (12.0-15.5); LYMPH # 3.1 10^3/uL (1.5-5.0); LYMPH % 33.8 % (24.0-44.0); MEAN CORPUSCULAR HEMOGLOBIN 27.4 pg (27.0-33.0); MEAN CORPUSCULAR HGB CONC 31.1 g/dl (32.0-36.5); MEAN CORPUSCULAR VOLUME 88.1 fl (80.0-96.0); MONO % 10.3 % (2.0-8.0); NEUTROPHILS # 4.9 10^3/uL (1.5-8.5); NEUTROPHILS % 52.8 % (36.0-66.0); PLATELET COUNT, AUTOMATED 209 10^3/uL (150-450); RED BLOOD COUNT 4.64 10^6/uL (4.00-5.40); WHITE BLOOD COUNT 9.2 10^3/uL (4.0-10.0)
[2022-03-20 15:27] LABS: ERYTHROCYTE SEDIMENTATION RATE 22 mm/hr (0-30)
== END ==
LOC: M LAB 14:21
PROVIDERS: ATTEND Optometrist
DX: M31.6 Other giant cell arteritis (principal)

== ENCOUNTER → 2022-05-24 | Outpatient (CLI) | payer MEDICARE | LOC: M WHC 12:28 | PROVIDERS: ATTEND Family Medicine | DX: Z12.31 Encounter for screening mammogram for malignant neoplasm of breast (principal) ==

== ENCOUNTER → 2022-05-24 | Outpatient (CLI) | payer MEDICARE | LOC: M WHC 12:26 | PROVIDERS: ATTEND Internal Medicine Endocrinology, Diabetes & Metabolism | DX: Z12.31 Encounter for screening mammogram for malignant neoplasm of breast (principal); M81.0 Age-related osteoporosis without current pathological fracture; M85.89 Other specified disorders of bone density and structure, multiple sites ==

== ENCOUNTER → 2022-07-02 | Outpatient (REF) | payer MEDICARE ==
[2022-07-02 15:08] LABS: HEMATOCRIT 39.1 % (36.0-47.0); HEMOGLOBIN 12.4 g/dl (12.0-15.5); MEAN CORPUSCULAR HGB CONC 31.7 g/dl (32.0-36.5); MEAN CORPUSCULAR VOLUME 88.3 fl (80.0-96.0); PLATELET COUNT, AUTOMATED 184 10^3/uL (150-450); RED BLOOD COUNT 4.43 10^6/uL (4.00-5.40); WHITE BLOOD COUNT 10.4 10^3/uL (4.0-10.0)
[2022-07-02 15:50] LABS: ALBUMIN 3.3 G/DL (3.2-5.2); BILIRUBIN,TOTAL 0.3 MG/DL (0.3-1.2); CALCIUM LEVEL 9.5 MG/DL (8.3-10.6); CHOLESTEROL RISK RATIO 3.69 (<5); CREATININE FOR GFR 0.96 MG/DL (0.55-1.30); FREE T4 1.48 NG/DL (0.89-1.76); GLOMERULAR FILTRATION RATE 59.8 (>39); HDL CHOLESTEROL 47.3 MG/DL (>40); LDL CHOLESTEROL 101.3 MG/DL (<100); POTASSIUM SERUM 4.3 MMOL/L (3.5-5.1); PTH INTACT 144.8 PG/ML (18.5-88.0); THYROID STIMULATING HORMONE 0.895 uIU/ML (0.55-4.78); TOTAL 25(OH) VITAMIN D 20.9 NG/ML (20.0-100.0); TOTAL PROTEIN 6.5 G/DL (5.7-8.2)
== END ==
LOC: M SFHCADAM 11:25
PROVIDERS: ATTEND Family Medicine
DX: E03.9 Hypothyroidism, unspecified (principal); I11.9 Hypertensive heart disease without heart failure; C34.90 Malignant neoplasm of unspecified part of unspecified bronchus or lung; M81.0 Age-related osteoporosis without current pathological fracture; E21.0 Primary hyperparathyroidism; E78.49 Other hyperlipidemia

== ENCOUNTER → 2022-09-13 | Outpatient (REF) | payer MEDICARE ==
[2022-09-13 15:24] LABS: CALCIUM LEVEL 9.9 MG/DL (8.3-10.6); CREATININE FOR GFR 1.07 MG/DL (0.55-1.30); GLOMERULAR FILTRATION RATE 52.8 (>39); POTASSIUM SERUM 4.4 MMOL/L (3.5-5.1)
[2022-09-13 15:25] LABS: TOTAL 25(OH) VITAMIN D 33.2 NG/ML (20.0-100.0)
== END ==
LOC: M LABDRWAD 12:52
PROVIDERS: ATTEND Internal Medicine Endocrinology, Diabetes & Metabolism
DX: M81.0 Age-related osteoporosis without current pathological fracture (principal); E55.9 Vitamin D deficiency, unspecified

== ENCOUNTER → 2022-09-24 | Outpatient (CLI) | payer MEDICARE | LOC: M PLAIMG 14:12 | PROVIDERS: ATTEND Internal Medicine Pulmonary Disease | DX: R91.8 Other nonspecific abnormal finding of lung field (principal); R91.1 Solitary pulmonary nodule; Z85.118 Personal history of other malignant neoplasm of bronchus and lung ==

== ENCOUNTER 2022-10-17 06:10 | Day surgery (SDC) | payer MEDICARE ==
[~2022-10-17] VITALS: Ht 157.5 cm; Wt 54.9 kg
[~2022-10-17 06:10] MED LIST changes: +ALBUTEROL SULFATE 2.5MG/0.5ML INH NEB SOLN INH ONE; +B-12100010 PO; +LIDOCAINE PRES-FREE 2% 10ML AMP INH ONE; +LR 1,000 ML IV SCH
[2022-10-17] MEDS ORDERED: ONDANSETRON 4MG 2ML VIAL As Ordered ONE (07:07)
[2022-10-17] MEDS ORDERED: LIDOCAINE 2% 100MG/5ML SDV (FOR ANES.) As Ordered ONE (07:07)
[2022-10-17] MEDS ORDERED: propofoL 200 MG/20 ML VIAL As Ordered ONE (07:07)
[2022-10-17] MEDS ORDERED: ROCURONIUM BROMIDE 50MG/5ML VIAL As Ordered ONE (07:07)
[2022-10-17] MEDS ORDERED: MIDAZOLAM INJ 2MG/2ML VIAL As Ordered ONE (07:08)
[2022-10-17] MEDS ORDERED: fentaNYL 100 MCG/2 ML INJECTION As Ordered ONE (07:08)
[2022-10-17] MEDS ORDERED: EPINEPHrine 1MG/10ML SYRINGE 1.5IN As Ordered ONE (07:21)
[2022-10-17] MEDS ORDERED: CETACAINE SPRAY 5GM As Ordered ONE (07:21)
[2022-10-17] MEDS ORDERED: THROMBIN 5,000 UNITS VIAL As Ordered ONE (07:21)
[2022-10-17] MEDS ORDERED: SUGAMMADEX SODIUM 500 MG/5 ML VIAL (BRIDION) As Ordered ONE (08:22)
[2022-10-17] MEDS ORDERED: HYDROMORPHONE HCL 0.5 MG/ 0.5 ML SYRINGE IV PRN (09:05)
[2022-10-17] MEDS ORDERED: LR 1,000 ML IV SCH (09:05)
[2022-10-17] MEDS ORDERED: fentaNYL 100 MCG/2 ML INJECTION IV PRN (09:05)
[2022-10-17] MEDS ORDERED: ONDANSETRON 4MG 2ML VIAL IV PRN (09:05)
[2022-10-17] MEDS ORDERED: oxyCODONE 5MG TAB PO PRN (09:05)
[2022-10-17] MEDS ORDERED: ACETAMINOPHEN 1000MG 100ML IV BAG As Ordered ONE (10:39)
[2022-10-17 12:01] VITALS: BP 160/73
== END 2022-10-17 12:25 | disposition home or self-care (01) ==
LOC: M SDC 06:10
PROVIDERS: ATTEND Internal Medicine Critical Care Medicine
DX: C34.2 Malignant neoplasm of middle lobe, bronchus or lung (principal); I25.10 Atherosclerotic heart disease of native coronary artery without angina pectoris; I10 Essential (primary) hypertension; E78.5 Hyperlipidemia, unspecified; E03.9 Hypothyroidism, unspecified; J44.9 Chronic obstructive pulmonary disease, unspecified; F17.210 Nicotine dependence, cigarettes, uncomplicated; Z79.51 Long term (current) use of inhaled steroids; Z79.82 Long term (current) use of aspirin; Z92.3 Personal history of irradiation; Z90.2 Acquired absence of lung [part of]
CPT/HCPCS: 31628; 31652; 71045; 76000; 88173; 88305; J0131; J0171; J1100; J2250; J2405; J3010; S2900

== ENCOUNTER → 2022-10-25 | Outpatient (CLI) | payer MEDICARE ==
[~2022-10-25] MED LIST changes: -ALBUTEROL SULFATE 2.5MG/0.5ML INH NEB SOLN INH ONE; -LIDOCAINE PRES-FREE 2% 10ML AMP INH ONE; -LR 1,000 ML IV SCH
== END ==
LOC: M ONCR 12:53
PROVIDERS: ATTEND General Practice
DX: C34.2 Malignant neoplasm of middle lobe, bronchus or lung (principal); C79.31 Secondary malignant neoplasm of brain; C18.9 Malignant neoplasm of colon, unspecified; E03.9 Hypothyroidism, unspecified; F17.218 Nicotine dependence, cigarettes, with other nicotine-induced disorders; J44.9 Chronic obstructive pulmonary disease, unspecified; I10 Essential (primary) hypertension; I48.0 Paroxysmal atrial fibrillation; I73.9 Peripheral vascular disease, unspecified; K21.9 Gastro-esophageal reflux disease without esophagitis; Z71.2 Person consulting for explanation of examination or test findings; Z79.82 Long term (current) use of aspirin; Z79.899 Other long term (current) drug therapy; Z88.5 Allergy status to narcotic agent; Z95.2 Presence of prosthetic heart valve

== ENCOUNTER → 2022-11-14 | Outpatient (REF) | payer MEDICARE ==
[2022-11-14 16:42] LABS: ALBUMIN 3.5 G/DL (3.2-5.2); CREATININE FOR GFR 1.03 MG/DL (0.55-1.30); GLOMERULAR FILTRATION RATE 55.2 (>39); POTASSIUM SERUM 4.2 MMOL/L (3.5-5.1)
== END ==
LOC: M SFHCADAM 11:51
PROVIDERS: ATTEND Family Medicine
DX: E83.52 Hypercalcemia (principal)

== ENCOUNTER → 2022-11-19 | Outpatient (CLI) | payer MEDICARE | LOC: M PLARAD 11:29 | PROVIDERS: ATTEND Internal Medicine Pulmonary Disease | DX: C34.91 Malignant neoplasm of unspecified part of right bronchus or lung (principal) | CPT/HCPCS: 78815; A9552 ==

== ENCOUNTER → 2022-11-21 | Outpatient (CLI) | payer MEDICARE | LOC: M ONCR 12:55 | PROVIDERS: ATTEND General Practice | DX: C34.2 Malignant neoplasm of middle lobe, bronchus or lung (principal); F17.218 Nicotine dependence, cigarettes, with other nicotine-induced disorders; C19 Malignant neoplasm of rectosigmoid junction; C79.31 Secondary malignant neoplasm of brain; Z71.2 Person consulting for explanation of examination or test findings; Z79.899 Other long term (current) drug therapy; Z88.5 Allergy status to narcotic agent; Z90.2 Acquired absence of lung [part of]; Z92.3 Personal history of irradiation; Z92.21 Personal history of antineoplastic chemotherapy ==

== ENCOUNTER 2022-12-11 09:57 | Day surgery (SDC) | payer MEDICARE ==
[~2022-12-11] VITALS: Ht 157.5 cm; Wt 54.4 kg
[~2022-12-11 09:57] MED LIST changes: +ACETYLCHOLINE OPHTH SOLN 1% 2ML (MIOCHOL-E) As Ordered ONE; +AMLO10TA PO; +BSS IRR 500ML/OMIDRIA 4ML IRR BAG (OR ONLY) As Ordered ONE; +CEFUROXIME 1MG/0.1ML INTRACAMERAL INJ As Ordered ONE; +CYCLOPENTOLATE 1% OPHTH SOLN 2ML BTL OD SCH; +LIDOCAINE 1% SDV 5ML VIAL As Ordered ONE; +OFLOXACIN 0.3 % (OCUFLOX) OPTH SOL 5ML OD SCH; +PHENYLEPHRINE 2.5% OPHTH SOL 2ML OD SCH; +PROPARACAINE 0.5% OPHTH SOL 15ML OD ONE; +TROPICAMIDE 1% OPHTH SOLN 15ML OD SCH
[2022-12-11] MEDS ORDERED: MIDAZOLAM INJ 2MG/2ML VIAL As Ordered ONE (11:45)
[2022-12-11] MEDS ORDERED: fentaNYL 100 MCG/2 ML INJECTION As Ordered ONE (11:46)
[2022-12-11 12:20] VITALS: BP 120/60; TEMP 97.6; O2SAT 96
== END 2022-12-11 12:38 | disposition home or self-care (01) ==
LOC: M SDC 09:57
PROVIDERS: ATTEND Ophthalmology
DX: H25.11 Age-related nuclear cataract, right eye (principal); I10 Essential (primary) hypertension; E78.5 Hyperlipidemia, unspecified; E03.9 Hypothyroidism, unspecified; F17.210 Nicotine dependence, cigarettes, uncomplicated; M81.0 Age-related osteoporosis without current pathological fracture; J44.9 Chronic obstructive pulmonary disease, unspecified; Z85.118 Personal history of other malignant neoplasm of bronchus and lung; Z92.3 Personal history of irradiation; Z92.21 Personal history of antineoplastic chemotherapy; Z85.038 Personal history of other malignant neoplasm of large intestine; Z79.51 Long term (current) use of inhaled steroids; Z79.82 Long term (current) use of aspirin; Z79.899 Other long term (current) drug therapy; Z88.5 Allergy status to narcotic agent
CPT/HCPCS: 66984; J0697; J1097; J2250; J3010; V2632

== ENCOUNTER → 2022-12-17 | Outpatient (RCR) | payer MEDICARE ==
[~2022-12-17] MED LIST changes: -ACETYLCHOLINE OPHTH SOLN 1% 2ML (MIOCHOL-E) As Ordered ONE; -BSS IRR 500ML/OMIDRIA 4ML IRR BAG (OR ONLY) As Ordered ONE; -CEFUROXIME 1MG/0.1ML INTRACAMERAL INJ As Ordered ONE; -CYCLOPENTOLATE 1% OPHTH SOLN 2ML BTL OD SCH; -LIDOCAINE 1% SDV 5ML VIAL As Ordered ONE; -OFLOXACIN 0.3 % (OCUFLOX) OPTH SOL 5ML OD SCH; -PHENYLEPHRINE 2.5% OPHTH SOL 2ML OD SCH; -PROPARACAINE 0.5% OPHTH SOL 15ML OD ONE; -TROPICAMIDE 1% OPHTH SOLN 15ML OD SCH
== END ==
LOC: M ONCR 11-28 13:53
PROVIDERS: ATTEND General Practice
DX: C34.2 Malignant neoplasm of middle lobe, bronchus or lung (principal)

== ENCOUNTER 2022-12-18 14:08 | Outpatient (RCR) | payer MEDICARE ==
[2023-01-22] MEDS ORDERED: SPIR12.9 INH (11:36)
== END 2023-01-17 ==
LOC: M ONCR 14:08
PROVIDERS: ATTEND General Practice
DX: Z51.0 Encounter for antineoplastic radiation therapy (principal); C34.2 Malignant neoplasm of middle lobe, bronchus or lung

== ENCOUNTER 2023-01-29 10:27 | Day surgery (SDC) | payer MEDICARE ==
[~2023-01-29] VITALS: Ht 157.5 cm; Wt 54.9 kg
[~2023-01-29 10:27] MED LIST changes: +ACETYLCHOLINE OPHTH SOLN 1% 2ML (MIOCHOL-E) As Ordered ONE; +CEFUROXIME 1MG/0.1ML INTRACAMERAL INJ As Ordered ONE; +CYCLOPENTOLATE 1% OPHTH SOLN 2ML BTL OS SCH; +LIDOCAINE 1% SDV 5ML VIAL As Ordered ONE; +OFLOXACIN 0.3 % (OCUFLOX) OPTH SOL 5ML OS SCH; +PHENYLEPHRINE 2.5% OPHTH SOL 2ML OS SCH; +PROPARACAINE 0.5% OPHTH SOL 15ML OS ONE; +SPIR12.9 INH; +TROPICAMIDE 1% OPHTH SOLN 15ML OS SCH
[2023-01-29] MEDS ORDERED: ALBUTEROL SULFATE 2.5MG/0.5ML INH NEB SOLN NEB ONE (11:45)
[2023-01-29] MEDS ORDERED: BSS IRR 500ML/OMIDRIA 4ML IRR BAG (OR ONLY) As Ordered ONE (12:05)
[2023-01-29] MEDS ORDERED: LIDOCAINE 2% W/EPINEPHRINE 20ML VIAL **PRES FREE As Ordered ONE (12:41)
[2023-01-29] MEDS ORDERED: MIDAZOLAM INJ 2MG/2ML VIAL As Ordered ONE (12:43)
[2023-01-29] MEDS ORDERED: fentaNYL 100 MCG/2 ML INJECTION As Ordered ONE (12:43)
[2023-01-29] MEDS ORDERED: TOBRADEX OPHTH OINT 3.5 GM As Ordered ONE (13:01)
[2023-01-29 13:20] VITALS: BP 181/74; TEMP 96.9; O2SAT 94
== END 2023-01-29 13:43 | disposition home or self-care (01) ==
LOC: M SDC 10:27
PROVIDERS: ATTEND Ophthalmology
DX: H25.12 Age-related nuclear cataract, left eye (principal); H21.81 Floppy iris syndrome; H02.825 Cysts of left lower eyelid; I10 Essential (primary) hypertension; I25.10 Atherosclerotic heart disease of native coronary artery without angina pectoris; J44.9 Chronic obstructive pulmonary disease, unspecified; E78.5 Hyperlipidemia, unspecified; Z88.5 Allergy status to narcotic agent; Z85.038 Personal history of other malignant neoplasm of large intestine; Z85.118 Personal history of other malignant neoplasm of bronchus and lung; Z92.3 Personal history of irradiation; Z92.21 Personal history of antineoplastic chemotherapy; Z79.51 Long term (current) use of inhaled steroids; Z79.82 Long term (current) use of aspirin; Z79.899 Other long term (current) drug therapy
CPT/HCPCS: 66982; 67961; 88305; J0697; J1097; J2250; J3010; V2632

== ENCOUNTER → 2023-03-06 | Outpatient (REF) | payer MEDICARE ==
[~2023-03-06] MED LIST changes: -ACETYLCHOLINE OPHTH SOLN 1% 2ML (MIOCHOL-E) As Ordered ONE; -CEFUROXIME 1MG/0.1ML INTRACAMERAL INJ As Ordered ONE; -CYCLOPENTOLATE 1% OPHTH SOLN 2ML BTL OS SCH; -LIDOCAINE 1% SDV 5ML VIAL As Ordered ONE; -OFLOXACIN 0.3 % (OCUFLOX) OPTH SOL 5ML OS SCH; -PHENYLEPHRINE 2.5% OPHTH SOL 2ML OS SCH; -PROPARACAINE 0.5% OPHTH SOL 15ML OS ONE; -TROPICAMIDE 1% OPHTH SOLN 15ML OS SCH
[2023-03-06 13:49] LABS: ALBUMIN 3.3 G/DL (3.2-5.2); BILIRUBIN,TOTAL 0.3 MG/DL (0.3-1.2); CREATININE FOR GFR 0.97 MG/DL (0.55-1.30); GLOMERULAR FILTRATION RATE 59.1 (>39); TOTAL PROTEIN 6.5 G/DL (5.7-8.2)
== END ==
LOC: M LABDRWAD 12:53
PROVIDERS: ATTEND General Practice
DX: C34.2 Malignant neoplasm of middle lobe, bronchus or lung (principal)

== ENCOUNTER → 2023-03-11 | Outpatient (CLI) | payer MEDICARE ==
[~2023-03-11] MED LIST changes: +ISOVUE-370 76% 100ML VIAL As Ordered ONE
== END ==
LOC: M RAD 10:55
PROVIDERS: ATTEND General Practice
DX: C34.2 Malignant neoplasm of middle lobe, bronchus or lung (principal); R91.1 Solitary pulmonary nodule
CPT/HCPCS: 71260; Q9967

== ENCOUNTER → 2023-03-20 | Outpatient (CLI) | payer MEDICARE ==
[~2023-03-20] MED LIST changes: +AZIT-12 PO; -ISOVUE-370 76% 100ML VIAL As Ordered ONE; +PRED50TA PO
== END ==
LOC: M ONCR 13:52
PROVIDERS: ATTEND General Practice
DX: C34.2 Malignant neoplasm of middle lobe, bronchus or lung (principal); R91.1 Solitary pulmonary nodule; J44.1 Chronic obstructive pulmonary disease with (acute) exacerbation; C79.31 Secondary malignant neoplasm of brain; F17.210 Nicotine dependence, cigarettes, uncomplicated; Z71.2 Person consulting for explanation of examination or test findings; Z79.82 Long term (current) use of aspirin; Z79.890 Hormone replacement therapy; Z79.899 Other long term (current) drug therapy; Z85.038 Personal history of other malignant neoplasm of large intestine; Z88.5 Allergy status to narcotic agent; Z92.3 Personal history of irradiation

== ENCOUNTER → 2023-05-02 | Outpatient (REF) | payer MEDICARE ==
[2023-05-02 14:05] LABS: ALBUMIN 3.1 G/DL (3.2-5.2); BLOOD UREA NITROGEN 8 MG/DL (9-23); CALCIUM LEVEL 9.9 MG/DL (8.3-10.6); CARBON DIOXIDE LEVEL 28 MMOL/L (20-31); CHLORIDE LEVEL 104 MMOL/L (98-107); CREATININE FOR GFR 0.94 MG/DL (0.55-1.30); GLOMERULAR FILTRATION RATE > 60.0 (>39); GLUCOSE, FASTING 137 MG/DL (74-106); MAGNESIUM LEVEL 1.7 MG/DL (1.8-2.4); PHOSPHORUS LEVEL 2.7 MG/DL (2.4-5.1); POTASSIUM SERUM 4.1 MMOL/L (3.5-5.1); SODIUM LEVEL 139 MMOL/L (136-145)
== END ==
LOC: M SFHCADAM 09:43
PROVIDERS: ATTEND Family Medicine
DX: I49.8 Other specified cardiac arrhythmias (principal)

== ENCOUNTER → 2023-05-07 | Outpatient (REF) | payer MEDICARE ==
[2023-05-07 15:06] LABS: HEMATOCRIT 42.1 % (36.0-47.0); HEMOGLOBIN 13.1 g/dl (12.0-15.5); MEAN CORPUSCULAR HEMOGLOBIN 28.8 pg (27.0-33.0); MEAN CORPUSCULAR HGB CONC 31.1 g/dl (32.0-36.5); MEAN CORPUSCULAR VOLUME 92.5 fl (80.0-96.0); PLATELET COUNT, AUTOMATED 246 10^3/uL (150-450); RED BLOOD COUNT 4.55 10^6/uL (4.00-5.40); WHITE BLOOD COUNT 9.4 10^3/uL (4.0-10.0)
[2023-05-07 15:37] LABS: FOLATE 10.33 NG/ML (>5.4); THYROID STIMULATING HORMONE 1.045 uIU/ML (0.55-4.78)
[2023-05-07 15:38] LABS: FREE T4 1.56 NG/DL (0.89-1.76)
[2023-05-07 15:39] LABS: VITAMIN B12 LEVEL > 2000 PG/ML (211-911)
== END ==
LOC: M SFHCADAM 11:54
PROVIDERS: ATTEND Family Medicine
DX: R53.83 Other fatigue (principal)

== ENCOUNTER → 2023-05-28 | Outpatient (CLI) | payer MEDICARE | LOC: M WHC 12:14 | PROVIDERS: ATTEND Family Medicine | DX: Z12.31 Encounter for screening mammogram for malignant neoplasm of breast (principal); R92.323 Mammographic fibroglandular density, bilateral breasts ==

== ENCOUNTER → 2023-06-20 | Outpatient (CLI) | payer MEDICARE | LOC: M PLAIMG 12:36 | PROVIDERS: ATTEND Internal Medicine Pulmonary Disease | DX: J43.9 Emphysema, unspecified (principal); R91.8 Other nonspecific abnormal finding of lung field ==

== ENCOUNTER → 2023-07-11 | Outpatient (CLI) | payer MEDICARE | LOC: M PLAIMG 11:07 | PROVIDERS: ATTEND General Practice | DX: C34.2 Malignant neoplasm of middle lobe, bronchus or lung (principal); R91.8 Other nonspecific abnormal finding of lung field ==

== ENCOUNTER → 2023-07-24 | Outpatient (CLI) | payer MEDICARE | LOC: M ONCR 12:48 | PROVIDERS: ATTEND General Practice | DX: C34.2 Malignant neoplasm of middle lobe, bronchus or lung (principal); C79.31 Secondary malignant neoplasm of brain; C18.9 Malignant neoplasm of colon, unspecified; R91.8 Other nonspecific abnormal finding of lung field; F17.210 Nicotine dependence, cigarettes, uncomplicated; Z71.2 Person consulting for explanation of examination or test findings; Z79.82 Long term (current) use of aspirin; Z79.899 Other long term (current) drug therapy; Z79.890 Hormone replacement therapy; Z88.5 Allergy status to narcotic agent; Z90.2 Acquired absence of lung [part of]; Z92.3 Personal history of irradiation ==

== ENCOUNTER → 2023-07-26 | Outpatient (REF) | payer MEDICARE | LOC: M LAB REF 12:59 | PROVIDERS: ATTEND Internal Medicine Pulmonary Disease | DX: J44.9 Chronic obstructive pulmonary disease, unspecified (principal) ==

== ENCOUNTER 2023-10-21 22:17 | Inpatient (IN) | payer MEDICARE ==
[~2023-10-21] VITALS: Ht 157.5 cm; Wt 55.4 kg
[~2023-10-21 22:17] MED LIST changes: +DOXY-440 PO; -DOXY-444 PO
[2023-10-21 23:22] LABS: BASO % 0.3 % (0.0-1.0); EOS # 0.1 10^3/uL (0.0-0.5); EOS % 1.2 % (0.0-3.0); HEMATOCRIT 38.3 % (36.0-47.0); HEMOGLOBIN 11.8 g/dl (12.0-15.5); LYMPH # 1.9 10^3/uL (1.5-5.0); LYMPH % 15.8 % (24.0-44.0); MEAN CORPUSCULAR HEMOGLOBIN 27.6 pg (27.0-33.0); MEAN CORPUSCULAR HGB CONC 30.8 g/dl (32.0-36.5); MEAN CORPUSCULAR VOLUME 89.7 fl (80.0-96.0); MONO # 1.4 10^3/uL (0.0-0.8); MONO % 11.8 % (2.0-8.0); NEUTROPHILS # 8.4 10^3/uL (1.5-8.5); NEUTROPHILS % 70.4 % (36.0-66.0); PLATELET COUNT, AUTOMATED 238 10^3/uL (150-450); RED BLOOD COUNT 4.27 10^6/uL (4.00-5.40); WHITE BLOOD COUNT 11.9 10^3/uL (4.0-10.0)
[2023-10-21 23:44] LABS: ALBUMIN 2.7 G/DL (3.2-5.2); ALKALINE PHOSPHATASE 101 U/L (46-116); ALT/SGPT 9 U/L (7.0-40); AST/SGOT 11 U/L (<34); BILIRUBIN,DIRECT < 0.1 MG/DL (<0.4); BILIRUBIN,TOTAL 0.2 MG/DL (0.3-1.2); BLOOD UREA NITROGEN 9 MG/DL (9-23); CALCIUM LEVEL 9.9 MG/DL (8.3-10.6); CARBON DIOXIDE LEVEL 32 MMOL/L (20-31); CHLORIDE LEVEL 105 MMOL/L (98-107); CREATININE FOR GFR 0.99 MG/DL (0.55-1.30); GLOMERULAR FILTRATION RATE 57.6 (>39); GLUCOSE, FASTING 117 MG/DL (74-106); SODIUM LEVEL 139 MMOL/L (136-145); TOTAL PROTEIN 5.7 G/DL (5.7-8.2)
[2023-10-22 00:32] LABS: VENOUS BASE EXCESS 0.6 (-2.0-2.0); VENOUS HCO3 26.8 MMOL/L (23.0-27.0); VENOUS O2 SATURATION 88.7 % (60.0-80.0); VENOUS PARTIAL PRESSURE CO2 49.3 mmHg (38.0-50.0); VENOUS PARTIAL PRESSURE O2 54.8 mmHg (30.0-50.0); VENOUS PH 7.353 UNITS (7.330-7.430); VENOUS STANDARD HCO3 24.8 MMOL/L; VENOUS TOTAL CO2 28.3 MMOL/L (24.0-28.0)
[2023-10-22 00:49] LABS: BASO # 0.1 10^3/uL (0.0-0.2); BASO % 0.4 % (0.0-1.0); EOS # 0.2 10^3/uL (0.0-0.5); EOS % 1.1 % (0.0-3.0); HEMATOCRIT 36.8 % (36.0-47.0); HEMOGLOBIN 11.8 g/dl (12.0-15.5); LYMPH # 2.3 10^3/uL (1.5-5.0); LYMPH % 16.4 % (24.0-44.0); MEAN CORPUSCULAR HEMOGLOBIN 28.6 pg (27.0-33.0); MEAN CORPUSCULAR HGB CONC 32.1 g/dl (32.0-36.5); MEAN CORPUSCULAR VOLUME 89.1 fl (80.0-96.0); MONO # 1.5 10^3/uL (0.0-0.8); MONO % 10.9 % (2.0-8.0); NEUTROPHILS # 9.7 10^3/uL (1.5-8.5); NEUTROPHILS % 70.4 % (36.0-66.0); PLATELET COUNT, AUTOMATED 229 10^3/uL (150-450); RED BLOOD COUNT 4.13 10^6/uL (4.00-5.40); WHITE BLOOD COUNT 13.8 10^3/uL (4.0-10.0)
[2023-10-22 01:09] LABS: CK-MB VALUE MASS < 1.0 NG/ML (<3.6)
[2023-10-22 01:10] LABS: ALBUMIN 2.8 G/DL (3.2-5.2); ALKALINE PHOSPHATASE 104 U/L (46-116); ALT/SGPT 11 U/L (7.0-40); AST/SGOT 14 U/L (<34); BILIRUBIN,DIRECT < 0.1 MG/DL (<0.4); BILIRUBIN,TOTAL 0.2 MG/DL (0.3-1.2); BLOOD UREA NITROGEN 8 MG/DL (9-23); CALCIUM LEVEL 9.7 MG/DL (8.3-10.6); CARBON DIOXIDE LEVEL 30 MMOL/L (20-31); CHLORIDE LEVEL 104 MMOL/L (98-107); GLOMERULAR FILTRATION RATE > 60.0 (>39); GLUCOSE, FASTING 112 MG/DL (74-106); POTASSIUM SERUM 3.9 MMOL/L (3.5-5.1); SODIUM LEVEL 138 MMOL/L (136-145); TOTAL PROTEIN 5.9 G/DL (5.7-8.2)
[2023-10-22 01:13] LABS: CPK CREATINE PHOSPHOKINASE 39 U/L (34-145); MB/CK RELATIVE INDEX 2.56 (< OR =4)
[2023-10-22] MEDS: IPRATROPIUM 0.5MG/ALBUTEROL 2.5MG INH SOL UD 3ML (DUONEB) NEB PRN (01:17)
[2023-10-22] MEDS: IPRATROPIUM 0.5MG/ALBUTEROL 2.5MG INH SOL UD 3ML (DUONEB) NEB ONE (01:17)
[2023-10-22] MEDS: MAG SULF 1GM/100ML (MAG RUN) 1 GM in IV 1 EA IV ONE (01:24)
[2023-10-22] MEDS ORDERED: ISOVUE-370 76% 100ML VIAL As Ordered ONE (02:04)
[2023-10-22] MEDS ORDERED: BUDE180INH INH (02:57)
[2023-10-22] MEDS ORDERED: ASPI-615 PO (02:57)
[2023-10-22] MEDS ORDERED: IPRA0.00 INH (02:57)
[2023-10-22] MEDS ORDERED: HOME MED LIST COMPLETE! XX SCH (03:00)
[2023-10-22] MEDS ORDERED: ALBUTEROL SULFATE 2.5MG/0.5ML INH NEB SOLN NEB PRN (03:40)
[2023-10-22] MEDS ORDERED: BUDESONIDE 180MCG INHALER (PULMICORT FLEXHALER) INH PRN (04:15)
[2023-10-22 04:43] VITALS: BP 144/63; TEMP 97.7; O2SAT 90
[2023-10-22] MEDS ORDERED: methylPREDNISolone 125MG 2ML VIAL IV SCH (05:00)
[2023-10-22] MEDS: LEVOTHYROXINE 75MCG TABLET (0.075MG) PO SCH (05:05)
[2023-10-22] MEDS: methylPREDNISolone 40MG 1ML VIAL IV SCH (05:05)
[2023-10-22] MEDS: LevoFLOXacin 250 MG TABLET PO SCH (05:06)
[2023-10-22 06:22] LABS: BASO # 0.1 10^3/uL (0.0-0.2); BASO % 0.5 % (0.0-1.0); EOS # 0.1 10^3/uL (0.0-0.5); EOS % 1.1 % (0.0-3.0); HEMOGLOBIN 11.1 g/dl (12.0-15.5); LYMPH # 2.2 10^3/uL (1.5-5.0); LYMPH % 19.7 % (24.0-44.0); MEAN CORPUSCULAR HEMOGLOBIN 27.7 pg (27.0-33.0); MEAN CORPUSCULAR HGB CONC 30.8 g/dl (32.0-36.5); MEAN CORPUSCULAR VOLUME 89.8 fl (80.0-96.0); MONO # 1.2 10^3/uL (0.0-0.8); MONO % 10.8 % (2.0-8.0); NEUTROPHILS # 7.4 10^3/uL (1.5-8.5); NEUTROPHILS % 67.1 % (36.0-66.0); PLATELET COUNT, AUTOMATED 202 10^3/uL (150-450); RED BLOOD COUNT 4.01 10^6/uL (4.00-5.40)
[2023-10-22 06:38] LABS: CK-MB VALUE MASS 1.3 NG/ML (<3.6)
[2023-10-22 06:40] LABS: MB/CK RELATIVE INDEX 4.81 (< OR =4)
[2023-10-22 06:43] LABS: THYROID STIMULATING HORMONE 1.05 uIU/ML (0.55-4.78)
[2023-10-22] MEDS: IPRATROPIUM 0.5MG/ALBUTEROL 2.5MG INH SOL UD 3ML (DUONEB) NEB SCH (08:27)
[2023-10-22] MEDS: NICOTINE 7 MG/24 HR TRANSDERMAL TD SCH (08:51)
[2023-10-22] MEDS: atenoloL 50 MG TAB PO SCH (08:51)
[2023-10-22] MEDS: ENOXAPARIN 40MG/0.4ML SYRINGE (J1650 PER 10MG) SC SCH (08:51)
[2023-10-22] MEDS: PANTOPRAZOLE 40MG VIAL IV SCH (08:51)
[2023-10-22 12:00] VITALS: BP 148/56; TEMP 97.9; O2SAT 95
[2023-10-22] MEDS: NYSTATIN 100,000 UNITS/GM TOPICAL PWD 15GM TOP SCH (12:45)
[2023-10-22] MEDS ORDERED: PROHANCE 279.3MG/ML 15ML VIAL As Ordered ONE (13:50)
[2023-10-22] MEDS: TIOTROPIUM INHALER/CAPSULE (SPIRIVA) INH SCH (19:47)
[2023-10-22 20:08] VITALS: BP 141/72; TEMP 97.5; O2SAT 93
[2023-10-22] MEDS: ROSUVASTATIN 10 MG TAB (CRESTOR) PO SCH (21:00)
[2023-10-22] MEDS: ASPIRIN 81MG ENTERIC TABLET PO SCH (21:03)
[2023-10-23] VITALS (11 sets, daily range): BP systolic 132–151; BP diastolic 54–64; TEMP 97.3–98.1; O2SAT 82–96
[2023-10-23 07:11] LABS: ALBUMIN 2.7 G/DL (3.2-5.2); BILIRUBIN,TOTAL 0.2 MG/DL (0.3-1.2); CALCIUM LEVEL 9.9 MG/DL (8.3-10.6); CREATININE FOR GFR 1.11 MG/DL (0.55-1.30); GLOMERULAR FILTRATION RATE 50.5 (>39); POTASSIUM SERUM 4.2 MMOL/L (3.5-5.1); TOTAL PROTEIN 5.5 G/DL (5.7-8.2)
[2023-10-23] MEDS: IPRATROPIUM 0.5MG/ALBUTEROL 2.5MG INH SOL UD 3ML (DUONEB) NEB SCH (12:00)
[2023-10-23] MEDS: SYMBICORT 160/4.5MCG INHALER 6GM INH SCH (19:47)
[2023-10-24 04:00] VITALS: BP 131/50; TEMP 97; O2SAT 94
[2023-10-24 05:57] LABS: BASO % 0.1 % (0.0-1.0); HEMATOCRIT 31.3 % (36.0-47.0); HEMOGLOBIN 9.9 g/dl (12.0-15.5); LYMPH # 0.8 10^3/uL (1.5-5.0); LYMPH % 5.4 % (24.0-44.0); MEAN CORPUSCULAR HEMOGLOBIN 28.2 pg (27.0-33.0); MEAN CORPUSCULAR HGB CONC 31.6 g/dl (32.0-36.5); MEAN CORPUSCULAR VOLUME 89.2 fl (80.0-96.0); MONO % 6.9 % (2.0-8.0); NEUTROPHILS # 12.3 10^3/uL (1.5-8.5); NEUTROPHILS % 85.5 % (36.0-66.0); PLATELET COUNT, AUTOMATED 183 10^3/uL (150-450); RED BLOOD COUNT 3.51 10^6/uL (4.00-5.40); WHITE BLOOD COUNT 14.4 10^3/uL (4.0-10.0)
[2023-10-24 06:30] LABS: CALCIUM LEVEL 9.1 MG/DL (8.3-10.6); CREATININE FOR GFR 1.1 MG/DL (0.55-1.30); POTASSIUM SERUM 4.4 MMOL/L (3.5-5.1)
[2023-10-24 08:58] VITALS: BP 113/52
[2023-10-24] MEDS ORDERED: PRED10TA2 PO (10:36)
[2023-10-24] MEDS ORDERED: FORM20VI2 IH (10:36)
[2023-10-24] MEDS ORDERED: LEVO1TAB38 PO (10:36)
[2023-10-24] MEDS ORDERED: FAMO40TA3 PO (10:36)
[2023-10-24 12:00] VITALS: BP 120/54; TEMP 96.6; O2SAT 90
== END 2023-10-24 13:44 | disposition home health service (06) | DRG 189 ==
LOC: M ED 22:17 → M ED INP 10-22 03:40 → M MSPAV 10-22 04:43
PROVIDERS: ADMIT Preventive Medicine Undersea and Hyperbaric Medicine; ATTEND Internal Medicine Nephrology
DX: J96.01 Acute respiratory failure with hypoxia (principal); J44.1 Chronic obstructive pulmonary disease with (acute) exacerbation; K50.90 Crohn's disease, unspecified, without complications; K21.9 Gastro-esophageal reflux disease without esophagitis; E78.00 Pure hypercholesterolemia, unspecified; I34.1 Nonrheumatic mitral (valve) prolapse; I48.0 Paroxysmal atrial fibrillation; I25.10 Atherosclerotic heart disease of native coronary artery without angina pectoris; M81.0 Age-related osteoporosis without current pathological fracture; M48.00 Spinal stenosis, site unspecified; F17.210 Nicotine dependence, cigarettes, uncomplicated; E03.9 Hypothyroidism, unspecified; I10 Essential (primary) hypertension; Z90.2 Acquired absence of lung [part of]; Z79.82 Long term (current) use of aspirin; Z79.890 Hormone replacement therapy; Z79.899 Other long term (current) drug therapy; Z88.5 Allergy status to narcotic agent; Z85.038 Personal history of other malignant neoplasm of large intestine; Z11.52 Encounter for screening for COVID-19; Z85.118 Personal history of other malignant neoplasm of bronchus and lung; Z95.828 Presence of other vascular implants and grafts; Z90.79 Acquired absence of other genital organ(s); Z90.49 Acquired absence of other specified parts of digestive tract; Z95.2 Presence of prosthetic heart valve

== ENCOUNTER → 2023-10-28 | Outpatient (CLI) | payer MEDICARE ==
[~2023-10-28] MED LIST changes: +ASPI-615 PO; +BUDE180INH INH; +FAMO40TA3 PO; +FORM20VI2 IH; +GASTROGRAFIN SOLUTION 30ML As Ordered ONE; +IPRA0.00 INH; +ISOVUE-370 76% 100ML VIAL As Ordered ONE; +LEVO1TAB38 PO; +PRED10TA2 PO
== END ==
LOC: M RAD 13:06
PROVIDERS: ATTEND General Practice
DX: C34.2 Malignant neoplasm of middle lobe, bronchus or lung (principal); N26.1 Atrophy of kidney (terminal); N28.1 Cyst of kidney, acquired; Z90.49 Acquired absence of other specified parts of digestive tract; Z98.0 Intestinal bypass and anastomosis status; K76.0 Fatty (change of) liver, not elsewhere classified
CPT/HCPCS: 74177; Q9963; Q9967

== ENCOUNTER → 2023-10-29 | Outpatient (CLI) | payer MEDICARE ==
[~2023-10-29] MED LIST changes: -GASTROGRAFIN SOLUTION 30ML As Ordered ONE; -ISOVUE-370 76% 100ML VIAL As Ordered ONE
== END ==
LOC: M ONCR 12:54
PROVIDERS: ATTEND General Practice
DX: C34.2 Malignant neoplasm of middle lobe, bronchus or lung (principal); C18.9 Malignant neoplasm of colon, unspecified; Z85.841 Personal history of malignant neoplasm of brain; F17.210 Nicotine dependence, cigarettes, uncomplicated; Z71.2 Person consulting for explanation of examination or test findings; Z88.5 Allergy status to narcotic agent; Z79.82 Long term (current) use of aspirin; Z79.899 Other long term (current) drug therapy; Z79.890 Hormone replacement therapy; Z90.89 Acquired absence of other organs; Z92.21 Personal history of antineoplastic chemotherapy; Z92.3 Personal history of irradiation

== ENCOUNTER → 2023-11-19 | Outpatient (REF) | payer MEDICARE ==
[2023-11-19 18:40] LABS: HEMATOCRIT 33.8 % (36.0-47.0); HEMOGLOBIN 10.4 g/dl (12.0-15.5); MEAN CORPUSCULAR HEMOGLOBIN 28.3 pg (27.0-33.0); MEAN CORPUSCULAR HGB CONC 30.8 g/dl (32.0-36.5); MEAN CORPUSCULAR VOLUME 92.1 fl (80.0-96.0); PLATELET COUNT, AUTOMATED 241 10^3/uL (150-450); RED BLOOD COUNT 3.67 10^6/uL (4.00-5.40); WHITE BLOOD COUNT 7.7 10^3/uL (4.0-10.0)
[2023-11-19 18:50] LABS: BILIRUBIN,TOTAL 0.2 MG/DL (0.3-1.2); CALCIUM LEVEL 9.7 MG/DL (8.3-10.6); CHOLESTEROL RISK RATIO 4.45 (<5); CREATININE FOR GFR 1.08 MG/DL (0.55-1.30); GLOMERULAR FILTRATION RATE 52.1 (>39); HDL CHOLESTEROL 46.5 MG/DL (>40); HEMOGLOBIN A1c 6.1 % (4.0-6.0); LDL CHOLESTEROL 123.5 MG/DL (<100); NON-HDL-C 160.5 MG/DL; POTASSIUM SERUM 4.4 MMOL/L (3.5-5.1); PTH INTACT 134.8 PG/ML (18.5-88.0); TOTAL PROTEIN 5.9 G/DL (5.7-8.2)
[2023-11-19 18:51] LABS: FREE T4 1.3 NG/DL (0.89-1.76); THYROID STIMULATING HORMONE 2.111 uIU/ML (0.55-4.78)
== END ==
LOC: M SFHCADAM 11:20
PROVIDERS: ATTEND Family Medicine
DX: H53.9 Unspecified visual disturbance (principal); R73.03 Prediabetes; E03.9 Hypothyroidism, unspecified; E78.5 Hyperlipidemia, unspecified; C34.90 Malignant neoplasm of unspecified part of unspecified bronchus or lung; C79.31 Secondary malignant neoplasm of brain; E21.0 Primary hyperparathyroidism

== ENCOUNTER 2023-12-13 00:55 | Inpatient (IN) | payer MEDICARE ==
[~2023-12-13] VITALS: Ht 157.5 cm; Wt 55.0 kg
[2023-12-13 02:12] LABS: HEMATOCRIT 26.2 % (36.0-47.0); HEMOGLOBIN 8.1 g/dl (12.0-15.5); MEAN CORPUSCULAR HEMOGLOBIN 28.3 pg (27.0-33.0); MEAN CORPUSCULAR HGB CONC 30.9 g/dl (32.0-36.5); MEAN CORPUSCULAR VOLUME 91.6 fl (80.0-96.0); PLATELET COUNT, AUTOMATED 189 10^3/uL (150-450); RED BLOOD COUNT 2.86 10^6/uL (4.00-5.40); WHITE BLOOD COUNT 13.4 10^3/uL (4.0-10.0)
[2023-12-13] MEDS: IPRATROPIUM 0.5MG/ALBUTEROL 2.5MG INH SOL UD 3ML (DUONEB) NEB PRN (02:17)
[2023-12-13] MEDS: methylPREDNISolone 125MG 2ML VIAL IV ONE (02:37)
[2023-12-13 02:47] LABS: LIPASE 16 U/L (12-53)
[2023-12-13 02:48] LABS: CPK CREATINE PHOSPHOKINASE 32 U/L (34-145)
[2023-12-13 02:49] LABS: ALBUMIN 2.8 G/DL (3.2-5.2); ALKALINE PHOSPHATASE 72 U/L (46-116); ALT/SGPT < 9 U/L (7.0-40); AST/SGOT 9 U/L (<34); BILIRUBIN,DIRECT < 0.1 MG/DL (<0.4); BILIRUBIN,TOTAL 0.2 MG/DL (0.3-1.2); BLOOD UREA NITROGEN 12 MG/DL (9-23); CALCIUM LEVEL 10.3 MG/DL (8.3-10.6); CARBON DIOXIDE LEVEL 31 MMOL/L (20-31); CHLORIDE LEVEL 100 MMOL/L (98-107); CREATININE FOR GFR 0.95 MG/DL (0.55-1.30); GLOMERULAR FILTRATION RATE > 60.0 (>39); GLUCOSE, FASTING 118 MG/DL (74-106); POTASSIUM SERUM 4.2 MMOL/L (3.5-5.1); SODIUM LEVEL 134 MMOL/L (136-145); TOTAL PROTEIN 5.5 G/DL (5.7-8.2)
[2023-12-13 02:53] LABS: CK-MB VALUE MASS 1.2 NG/ML (<3.6); MB/CK RELATIVE INDEX 3.75 (< OR =4)
[2023-12-13 02:55] LABS: BASOPHILS 1 % (0-1); LYMPHOCYTES 10 % (16-44); MONOCYTES 4 % (0-5); NEUTROPHILS 85 % (28-66)
[2023-12-13 02:56] LABS: HYPOCHROMASIA 1+; PLATELET ESTIMATE NORMAL (NORMAL); THYROID STIMULATING HORMONE 1.199 uIU/ML (0.55-4.78)
[2023-12-13 02:57] LABS: FREE T4 1.39 NG/DL (0.89-1.76)
[2023-12-13] MEDS: ACETAMINOPHEN TAB 650MG DOSE (2X325MG) PO ONE (03:51)
[2023-12-13 03:57] LABS: CK-MB VALUE MASS < 1.0 NG/ML (<3.6)
[2023-12-13 04:25] LABS: CPK CREATINE PHOSPHOKINASE 38 U/L (34-145); MB/CK RELATIVE INDEX 2.63 (< OR =4)
[2023-12-13] MEDS ORDERED: ACETAMINOPHEN TAB 650MG DOSE (2X325MG) PO PRN (04:45)
[2023-12-13] MEDS: AZITHROMYCIN 250MG TABLET PO SCH (05:27)
[2023-12-13] MEDS: cefTRIAXone SOD 1 GM in D5W MINI-BAG PLUS 50 ML IV SCH (05:27)
[2023-12-13] MEDS ORDERED: LEVO1TAB39 PO (06:00)
[2023-12-13] MEDS ORDERED: ROSU20TA61 PO (06:00)
[2023-12-13] MEDS ORDERED: HYDR2.5C54 PR (06:00)
[2023-12-13] MEDS ORDERED: FERR1TAB8 PO (06:00)
[2023-12-13] MEDS ORDERED: PANT-23 PO (06:00)
[2023-12-13] MEDS ORDERED: HOME MED LIST COMPLETE! XX SCH (06:05)
[2023-12-13 06:44] LABS: BASO % 0.4 % (0.0-1.0); EOS % 0.1 % (0.0-3.0); HEMATOCRIT 25.6 % (36.0-47.0); HEMOGLOBIN 7.8 g/dl (12.0-15.5); LYMPH # 0.8 10^3/uL (1.5-5.0); LYMPH % 7.5 % (24.0-44.0); MEAN CORPUSCULAR HEMOGLOBIN 27.9 pg (27.0-33.0); MEAN CORPUSCULAR HGB CONC 30.5 g/dl (32.0-36.5); MEAN CORPUSCULAR VOLUME 91.4 fl (80.0-96.0); MONO # 0.3 10^3/uL (0.0-0.8); MONO % 2.4 % (2.0-8.0); NEUTROPHILS # 9.9 10^3/uL (1.5-8.5); NEUTROPHILS % 88.7 % (36.0-66.0); PLATELET COUNT, AUTOMATED 187 10^3/uL (150-450); WHITE BLOOD COUNT 11.2 10^3/uL (4.0-10.0)
[2023-12-13] MEDS: DOCUSATE SODIUM 100MG CAPSULE PO SCH (07:39)
[2023-12-13] MEDS: ENOXAPARIN 40MG/0.4ML SYRINGE (J1650 PER 10MG) SC SCH (07:42)
[2023-12-13] MEDS: NICOTINE 14 MG/24 HR TRANSDERMAL TD SCH (07:42)
[2023-12-13] MEDS: methylPREDNISolone 40MG 1ML VIAL IV SCH (07:54)
[2023-12-13] MEDS: PANTOPRAZOLE 40MG TAB (PROTONIX) PO SCH (07:54)
[2023-12-13] MEDS: FERROUS SULFATE 325MG TAB PO SCH (07:54)
[2023-12-13] MEDS: atenoloL 50 MG TAB PO SCH (07:55)
[2023-12-13] MEDS: LEVOTHYROXINE 75MCG TABLET (0.075MG) PO SCH (07:55)
[2023-12-13] MEDS: IPRATROPIUM 0.5MG/ALBUTEROL 2.5MG INH SOL UD 3ML (DUONEB) NEB SCH (09:07)
[2023-12-13 17:45] VITALS: BP 135/65; TEMP 98.1; O2SAT 88
[2023-12-13] MEDS: NYSTATIN 500,000U/5ML SUSP UDC SS SCH (18:28)
[2023-12-13 19:40] VITALS: BP 138/65; TEMP 97.3; O2SAT 97
[2023-12-13] MEDS: ASPIRIN 81MG ENTERIC TABLET PO SCH (20:23)
[2023-12-13] MEDS: ROSUVASTATIN 10 MG TAB (CRESTOR) PO SCH (20:23)
[2023-12-13 22:24] VITALS: O2SAT 81
[2023-12-13 22:29] VITALS: O2SAT 88
[2023-12-14] VITALS (15 sets, daily range): BP systolic 112–155; BP diastolic 53–88; TEMP 96.4–97.7; O2SAT 84–99
[2023-12-14 06:38] LABS: HEMOGLOBIN 8.3 g/dl (12.0-15.5); MEAN CORPUSCULAR HGB CONC 29.6 g/dl (32.0-36.5); MEAN CORPUSCULAR VOLUME 94.6 fl (80.0-96.0); PLATELET COUNT, AUTOMATED 215 10^3/uL (150-450); RED BLOOD COUNT 2.96 10^6/uL (4.00-5.40); WHITE BLOOD COUNT 19.5 10^3/uL (4.0-10.0)
[2023-12-14 07:02] LABS: BILIRUBIN,TOTAL 0.2 MG/DL (0.3-1.2); CALCIUM LEVEL 10.4 MG/DL (8.3-10.6); CREATININE FOR GFR 0.97 MG/DL (0.55-1.30); POTASSIUM SERUM 4.8 MMOL/L (3.5-5.1); TOTAL PROTEIN 5.8 G/DL (5.7-8.2)
[2023-12-14] MEDS: NS 1,000 ML IV ONE (07:39)
[2023-12-14] MEDS: ALBUTEROL SULFATE 2.5MG/0.5ML INH NEB SOLN NEB PRN (07:39)
[2023-12-14 07:48] LABS: ABG BASE EXCESS -3.1 (-2.0-2.0); ABG HCO3 28.5 MMOL/L (22.0-26.0); ABG O2 SATURATION 99.1 % (95.0-99.0); ABG PARTIAL PRESSURE O2 198.4 mmHg (75.0-100.0); ABG STANDARD HCO3 21.9 MMOL/L. (22.0-26.0); ABG TOTAL CO2 31.7 MMOL/L (23.0-31.0)
[2023-12-14 07:50] LABS: ABG PARTIAL PRESSURE CO2 103.4 mmHg (35.0-45.0); ABG pH (ARTERIAL) 7.058 UNITS (7.350-7.450)
[2023-12-14 09:20] LABS: CK-MB VALUE MASS 5.7 NG/ML (<3.6)
[2023-12-14 09:23] LABS: MB/CK RELATIVE INDEX 6.95 (< OR =4)
[2023-12-14] MEDS: FUROSEMIDE 20MG/2ML VIAL IV ONE ×2 (11:19→22:59)
[2023-12-14] MEDS: LORazepam 2 MG/ML 1ML VIAL IV STA (11:19)
[2023-12-14 11:37] LABS: ABG BASE EXCESS -0.9 (-2.0-2.0); ABG HCO3 28.3 MMOL/L (22.0-26.0); ABG PARTIAL PRESSURE O2 76.7 mmHg (75.0-100.0); ABG STANDARD HCO3 23.6 MMOL/L. (22.0-26.0); ABG TOTAL CO2 30.7 MMOL/L (23.0-31.0)
[2023-12-14 11:40] LABS: ABG PARTIAL PRESSURE CO2 78.1 mmHg (35.0-45.0); ABG pH (ARTERIAL) 7.177 UNITS (7.350-7.450)
[2023-12-14] MEDS: IPRATROPIUM 0.5MG/ALBUTEROL 2.5MG INH SOL UD 3ML (DUONEB) NEB SCH (12:27)
[2023-12-14 12:41] LABS: CK-MB VALUE MASS 6.6 NG/ML (<3.6)
[2023-12-14 12:43] LABS: MB/CK RELATIVE INDEX 7.76 (< OR =4)
[2023-12-14 14:58] LABS: ABG BASE EXCESS 3.1 (-2.0-2.0); ABG HCO3 29.1 MMOL/L (22.0-26.0); ABG O2 SATURATION 90.3 % (95.0-99.0); ABG PARTIAL PRESSURE CO2 52.6 mmHg (35.0-45.0); ABG PARTIAL PRESSURE O2 57.9 mmHg (75.0-100.0); ABG STANDARD HCO3 27.1 MMOL/L. (22.0-26.0); ABG TOTAL CO2 30.7 MMOL/L (23.0-31.0); ABG pH (ARTERIAL) 7.361 UNITS (7.350-7.450)
[2023-12-14] MEDS: methylPREDNISolone 125MG 2ML VIAL IV SCH (17:07)
[2023-12-15] VITALS (75 sets, daily range): BP systolic 64–140; BP diastolic 43–97; TEMP 97–98.4; O2SAT 89–99
[2023-12-15 05:47] LABS: ABG BASE EXCESS 5.8 (-2.0-2.0); ABG HCO3 31.2 MMOL/L (22.0-26.0); ABG O2 SATURATION 98.3 % (95.0-99.0); ABG PARTIAL PRESSURE CO2 50.5 mmHg (35.0-45.0); ABG PARTIAL PRESSURE O2 118.2 mmHg (75.0-100.0); ABG STANDARD HCO3 29.8 MMOL/L. (22.0-26.0); ABG TOTAL CO2 32.8 MMOL/L (23.0-31.0); ABG pH (ARTERIAL) 7.409 UNITS (7.350-7.450)
[2023-12-15 06:09] LABS: HEMATOCRIT 25.6 % (36.0-47.0); HEMOGLOBIN 7.8 g/dl (12.0-15.5); MEAN CORPUSCULAR HEMOGLOBIN 28.6 pg (27.0-33.0); MEAN CORPUSCULAR HGB CONC 30.5 g/dl (32.0-36.5); MEAN CORPUSCULAR VOLUME 93.8 fl (80.0-96.0); PLATELET COUNT, AUTOMATED 164 10^3/uL (150-450); RED BLOOD COUNT 2.73 10^6/uL (4.00-5.40); WHITE BLOOD COUNT 12.5 10^3/uL (4.0-10.0)
[2023-12-15 06:31] LABS: CALCIUM LEVEL 9.6 MG/DL (8.3-10.6); CREATININE FOR GFR 1.07 MG/DL (0.55-1.30); GLOMERULAR FILTRATION RATE 52.7 (>39); MAGNESIUM LEVEL 2.1 MG/DL (1.8-2.4); POTASSIUM SERUM 4.3 MMOL/L (3.5-5.1)
[2023-12-15] MEDS: SYMBICORT 160/4.5MCG INHALER 6GM INH SCH (08:16)
[2023-12-15] MEDS: TIOTROPIUM INHALER/CAPSULE (SPIRIVA) INH SCH (08:16)
[2023-12-15] MEDS: methylPREDNISolone 125MG 2ML VIAL IV SCH (08:43)
[2023-12-15] MEDS: METOPROLOL 5 MG/5 ML VIAL IV SCH (17:52)
[2023-12-15] MEDS: METOPROLOL TART 25 MG TABLET PO SCH (17:53)
[2023-12-15] MEDS: DIGOXIN INJ 0.5 MG/2 ML AMP IV ONE (18:31)
[2023-12-15] MEDS: NS 500 ML IV ONE (18:49)
[2023-12-15 19:15] LABS: MB/CK RELATIVE INDEX 5.55 (< OR =4)
[2023-12-15] MEDS: DIGOXIN INJ 0.5 MG/2 ML AMP IV STA (19:51)
[2023-12-15] MEDS: IPRATROPIUM 0.02% SOLN 0.5MG 2.5ML NEB INH SCH (20:58)
[2023-12-15] MEDS: LEVALBUTEROL 1.25MG 0.5ML CONCENTRATE NEB NEB SCH (20:58)
[2023-12-15] MEDS: guaiFENesin ER TABLET 600 MG TAB PO SCH (22:05)
[2023-12-16] VITALS (26 sets, daily range): BP systolic 127–169; BP diastolic 62–92; TEMP 97.2–98.3; O2SAT 91–98
[2023-12-16 06:01] LABS: HEMATOCRIT 24.9 % (36.0-47.0); HEMOGLOBIN 7.6 g/dl (12.0-15.5); MEAN CORPUSCULAR HEMOGLOBIN 28.3 pg (27.0-33.0); MEAN CORPUSCULAR HGB CONC 30.5 g/dl (32.0-36.5); MEAN CORPUSCULAR VOLUME 92.6 fl (80.0-96.0); PLATELET COUNT, AUTOMATED 171 10^3/uL (150-450); RED BLOOD COUNT 2.69 10^6/uL (4.00-5.40); WHITE BLOOD COUNT 13.3 10^3/uL (4.0-10.0)
[2023-12-16 06:23] LABS: CK-MB VALUE MASS 3.5 NG/ML (<3.6)
[2023-12-16 06:25] LABS: CALCIUM LEVEL 9.5 MG/DL (8.3-10.6); CREATININE FOR GFR 1.17 MG/DL (0.55-1.30); GLOMERULAR FILTRATION RATE 47.5 (>39); MB/CK RELATIVE INDEX 7.44 (< OR =4); POTASSIUM SERUM 4.4 MMOL/L (3.5-5.1)
[2023-12-16] MEDS ORDERED: ONDANSETRON 4MG 2ML VIAL IV PRN (09:35)
[2023-12-16] MEDS: CLOPIDOGREL 75 MG TAB PO SCH (10:46)
[2023-12-16 14:07] LABS: CK-MB VALUE MASS 2.5 NG/ML (<3.6)
[2023-12-16 14:08] LABS: MB/CK RELATIVE INDEX 6.41 (< OR =4)
[2023-12-16] MEDS: ROSUVASTATIN 10 MG TAB (CRESTOR) PO SCH (20:18)
[2023-12-16 22:44] LABS: CK-MB VALUE MASS 1.4 NG/ML (<3.6)
[2023-12-16 22:45] LABS: MB/CK RELATIVE INDEX 3.88 (< OR =4)
[2023-12-17] VITALS (55 sets, daily range): BP systolic 108–179; BP diastolic 56–89; TEMP 97.6–98.2; O2SAT 84–100
[2023-12-17] MEDS: METOPROLOL 5 MG/5 ML VIAL IV STA (02:27)
[2023-12-17] MEDS ORDERED: dilTIAZem 25MG/5ML VIAL As Ordered ONE (02:46)
[2023-12-17] MEDS: dilTIAZem 25MG/5ML VIAL IV STA (02:51)
[2023-12-17 05:47] LABS: HEMATOCRIT 24.7 % (36.0-47.0); HEMOGLOBIN 7.3 g/dl (12.0-15.5); MEAN CORPUSCULAR HEMOGLOBIN 27.9 pg (27.0-33.0); MEAN CORPUSCULAR HGB CONC 29.6 g/dl (32.0-36.5); MEAN CORPUSCULAR VOLUME 94.3 fl (80.0-96.0); PLATELET COUNT, AUTOMATED 146 10^3/uL (150-450); RED BLOOD COUNT 2.62 10^6/uL (4.00-5.40); WHITE BLOOD COUNT 11.9 10^3/uL (4.0-10.0)
[2023-12-17 06:13] LABS: CALCIUM LEVEL 9.1 MG/DL (8.3-10.6); CK-MB VALUE MASS 1.1 NG/ML (<3.6); CREATININE FOR GFR 0.99 MG/DL (0.55-1.30); GLOMERULAR FILTRATION RATE 57.6 (>39); POTASSIUM SERUM 4.6 MMOL/L (3.5-5.1)
[2023-12-17 06:14] LABS: MB/CK RELATIVE INDEX 5.5 (< OR =4)
[2023-12-17 07:49] LABS: FERRITIN 41.2 NG/ML (7.3-270.7); FOLATE 4.51 NG/ML (>5.4)
[2023-12-17] MEDS ORDERED: APIXABAN 2.5 MG TAB (ELIQUIS) PO SCH (09:00)
[2023-12-17] MEDS: BENZONATATE 100MG CAPSULE PO SCH (10:31)
[2023-12-17 13:03] LABS: CK-MB VALUE MASS < 1.0 NG/ML (<3.6)
[2023-12-17 13:04] LABS: CPK CREATINE PHOSPHOKINASE 27 U/L (34-145)
[2023-12-17] MEDS: APIXABAN 2.5 MG TAB (ELIQUIS) PO SCH (19:31)
[2023-12-17] MEDS: METOPROLOL TART 25 MG TABLET PO ONE (19:31)
[2023-12-17] MEDS ORDERED: APIXABAN 5 MG TAB (ELIQUIS) PO SCH (21:00)
[2023-12-18] VITALS (38 sets, daily range): BP systolic 139–186; BP diastolic 63–105; TEMP 97.4–98.4; O2SAT 87–100
[2023-12-18 05:07] LABS: HEMATOCRIT 26.3 % (36.0-47.0); HEMOGLOBIN 7.8 g/dl (12.0-15.5); MEAN CORPUSCULAR HEMOGLOBIN 28.1 pg (27.0-33.0); MEAN CORPUSCULAR HGB CONC 29.7 g/dl (32.0-36.5); MEAN CORPUSCULAR VOLUME 94.6 fl (80.0-96.0); PLATELET COUNT, AUTOMATED 164 10^3/uL (150-450); RED BLOOD COUNT 2.78 10^6/uL (4.00-5.40); WHITE BLOOD COUNT 17.3 10^3/uL (4.0-10.0)
[2023-12-18 05:29] LABS: CALCIUM LEVEL 9.2 MG/DL (8.3-10.6); CREATININE FOR GFR 1.17 MG/DL (0.55-1.30); GLOMERULAR FILTRATION RATE 47.5 (>39); POTASSIUM SERUM 4.4 MMOL/L (3.5-5.1)
[2023-12-18] MEDS: methylPREDNISolone 125MG 2ML VIAL IV SCH (08:37)
[2023-12-18] MEDS: METOPROLOL TART 25 MG TABLET PO SCH (08:38)
[2023-12-18] MEDS: CEFDINIR 300 MG CAP (OMNICEF) PO SCH (08:40)
[2023-12-19] VITALS (19 sets, daily range): BP systolic 141–184; BP diastolic 63–78; TEMP 97–98.3; O2SAT 84–96
[2023-12-19 04:32] LABS: HEMATOCRIT 22.5 % (36.0-47.0); MEAN CORPUSCULAR HEMOGLOBIN 27.8 pg (27.0-33.0); MEAN CORPUSCULAR HGB CONC 29.3 g/dl (32.0-36.5); MEAN CORPUSCULAR VOLUME 94.9 fl (80.0-96.0); PLATELET COUNT, AUTOMATED 134 10^3/uL (150-450); RED BLOOD COUNT 2.37 10^6/uL (4.00-5.40); WHITE BLOOD COUNT 15.9 10^3/uL (4.0-10.0)
[2023-12-19 04:55] LABS: HEMOGLOBIN 6.6 g/dl (12.0-15.5)
[2023-12-19 04:59] LABS: CALCIUM LEVEL 8.9 MG/DL (8.3-10.6); CREATININE FOR GFR 1.1 MG/DL (0.55-1.30); POTASSIUM SERUM 4.8 MMOL/L (3.5-5.1)
[2023-12-19 05:27] LABS: HEMOGLOBIN 6.8 g/dl (12.0-15.5)
[2023-12-19] MEDS: BISACODYL 10MG SUPP PR ONE (13:56)
[2023-12-19 18:52] LABS: BASO % 0.1 % (0.0-1.0); HEMATOCRIT 28.4 % (36.0-47.0); HEMOGLOBIN 8.7 g/dl (12.0-15.5); MEAN CORPUSCULAR HEMOGLOBIN 28.7 pg (27.0-33.0); MEAN CORPUSCULAR HGB CONC 30.6 g/dl (32.0-36.5); MEAN CORPUSCULAR VOLUME 93.7 fl (80.0-96.0); MONO # 1.2 10^3/uL (0.0-0.8); MONO % 7.2 % (2.0-8.0); NEUTROPHILS # 13.4 10^3/uL (1.5-8.5); NEUTROPHILS % 81.7 % (36.0-66.0); PLATELET COUNT, AUTOMATED 137 10^3/uL (150-450); RED BLOOD COUNT 3.03 10^6/uL (4.00-5.40); WHITE BLOOD COUNT 16.4 10^3/uL (4.0-10.0)
[2023-12-19] MEDS: METOPROLOL TART 50 MG TAB PO SCH (20:19)
[2023-12-19] MEDS: METOPROLOL TART 25 MG TABLET PO ONE (22:27)
[2023-12-20 03:33] VITALS: BP 166/72; TEMP 97.7; O2SAT 99
[2023-12-20 05:03] LABS: HEMOGLOBIN 8.1 g/dl (12.0-15.5); MEAN CORPUSCULAR HEMOGLOBIN 28.2 pg (27.0-33.0); MEAN CORPUSCULAR VOLUME 94.1 fl (80.0-96.0); PLATELET COUNT, AUTOMATED 128 10^3/uL (150-450); RED BLOOD COUNT 2.87 10^6/uL (4.00-5.40); WHITE BLOOD COUNT 18.1 10^3/uL (4.0-10.0)
[2023-12-20 05:25] LABS: BLOOD UREA NITROGEN 34 MG/DL (9-23); CALCIUM LEVEL 8.7 MG/DL (8.3-10.6); CARBON DIOXIDE LEVEL 33 MMOL/L (20-31); CHLORIDE LEVEL 109 MMOL/L (98-107); CREATININE FOR GFR 1.01 MG/DL (0.55-1.30); GLOMERULAR FILTRATION RATE 56.3 (>39); GLUCOSE, FASTING 92 MG/DL (74-106); POTASSIUM SERUM 4.6 MMOL/L (3.5-5.1); SODIUM LEVEL 141 MMOL/L (136-145)
[2023-12-20 05:30] VITALS: O2SAT 89
[2023-12-20 06:54] LABS: PROCALCITONIN 0.09 ng/ml
[2023-12-20 07:52] VITALS: BP 160/69; TEMP 98.2; O2SAT 96
[2023-12-20] MEDS: predniSONE 20 MG TAB PO SCH (09:21)
[2023-12-20] MEDS: LOSARTAN 50MG TABLET PO SCH (09:21)
[2023-12-20] MEDS: MIRALAX *UNIT DOSE* 17GM PACKET PO PRN (09:22)
[2023-12-20 11:50] VITALS: BP 150/81; TEMP 97.9; O2SAT 93
[2023-12-20] MEDS: FUROSEMIDE 20MG/2ML VIAL IV ONE (12:28)
[2023-12-20] MEDS ORDERED: ELIQ2.5T PO (13:53)
[2023-12-20] MEDS ORDERED: SYMB16INH INH (13:53)
[2023-12-20] MEDS ORDERED: LASI20TA3 PO (14:09)
[2023-12-20 20:09] VITALS: BP 124/58; TEMP 98.7; O2SAT 94
[2023-12-20 23:46] VITALS: BP 119/56; TEMP 97.7; O2SAT 96
[2023-12-21] VITALS (24 sets, daily range): BP systolic 95–155; BP diastolic 51–72; TEMP 97.4–98.4; O2SAT 91–97
[2023-12-21] MEDS: METOPROLOL 5 MG/5 ML VIAL IV SCH (00:25)
[2023-12-21] MEDS: DIGOXIN INJ 0.5 MG/2 ML AMP IV ONE (01:22)
[2023-12-21] MEDS: ALPRAZolam 0.5 MG TAB PO PRN (07:48)
[2023-12-21] MEDS: DIGOXIN INJ 0.5 MG/2 ML AMP IV STA (07:48)
[2023-12-21 08:37] LABS: BASO % 0.1 % (0.0-1.0); EOS % 0.2 % (0.0-3.0); HEMATOCRIT 24.6 % (36.0-47.0); HEMOGLOBIN 7.5 g/dl (12.0-15.5); LYMPH % 11.3 % (24.0-44.0); MEAN CORPUSCULAR HEMOGLOBIN 28.8 pg (27.0-33.0); MEAN CORPUSCULAR HGB CONC 30.5 g/dl (32.0-36.5); MEAN CORPUSCULAR VOLUME 94.6 fl (80.0-96.0); MONO # 2.5 10^3/uL (0.0-0.8); MONO % 13.9 % (2.0-8.0); NEUTROPHILS # 12.7 10^3/uL (1.5-8.5); NEUTROPHILS % 70.4 % (36.0-66.0); PLATELET COUNT, AUTOMATED 129 10^3/uL (150-450)
[2023-12-21 09:01] LABS: CALCIUM LEVEL 8.8 MG/DL (8.3-10.6); CREATININE FOR GFR 1.13 MG/DL (0.55-1.30); GLOMERULAR FILTRATION RATE 49.4 (>39); POTASSIUM SERUM 4.4 MMOL/L (3.5-5.1)
[2023-12-21] MEDS ORDERED: SENN-85 PO (09:03)
[2023-12-21] MEDS ORDERED: XANA0.5T PO (09:03)
[2023-12-21] MEDS ORDERED: AMLO10TA PO (09:07)
[2023-12-21] MEDS ORDERED: BENZ200C70 PO (09:07)
[2023-12-21] MEDS ORDERED: MIRA3350 PO (09:07)
[2023-12-21] MEDS ORDERED: LOPR1TAB7 PO (09:07)
[2023-12-21] MEDS ORDERED: LOSA50TA28 PO (09:07)
[2023-12-21] MEDS ORDERED: DIGO0.123 PO (09:07)
[2023-12-21] MEDS ORDERED: DIGO0.253 PO (09:07)
== END 2023-12-21 13:20 | disposition home or self-care (01) | DRG 177 ==
LOC: M ED 00:55 → M ED INP 04:43 → M MSPAV 17:50 → M ICU 12-14 08:25
PROVIDERS: ADMIT Internal Medicine; ATTEND Family Medicine
PROC: B246ZZZ Ultrasonography of Right and Left Heart (ICD-10-PCS; 2023-12-14)
PROC: 30233N1 Transfusion of Nonautologous Red Blood Cells into Peripheral Vein, Percutaneous Approach (ICD-10-PCS; principal; 2023-12-19)
DX: J15.69 Pneumonia due to other Gram-negative bacteria (principal); J96.21 Acute and chronic respiratory failure with hypoxia; G93.41 Metabolic encephalopathy; J96.22 Acute and chronic respiratory failure with hypercapnia; I21.A1 Myocardial infarction type 2; J44.0 Chronic obstructive pulmonary disease with (acute) lower respiratory infection; J44.1 Chronic obstructive pulmonary disease with (acute) exacerbation; K50.90 Crohn's disease, unspecified, without complications; I47.10 Supraventricular tachycardia, unspecified; Z66 Do not resuscitate; Z85.118 Personal history of other malignant neoplasm of bronchus and lung; Z90.2 Acquired absence of lung [part of]; Z99.81 Dependence on supplemental oxygen; K21.9 Gastro-esophageal reflux disease without esophagitis; E78.00 Pure hypercholesterolemia, unspecified; I25.10 Atherosclerotic heart disease of native coronary artery without angina pectoris; M81.0 Age-related osteoporosis without current pathological fracture; F17.210 Nicotine dependence, cigarettes, uncomplicated; D50.9 Iron deficiency anemia, unspecified; M48.00 Spinal stenosis, site unspecified; E03.9 Hypothyroidism, unspecified; I10 Essential (primary) hypertension; Z90.79 Acquired absence of other genital organ(s); Z90.49 Acquired absence of other specified parts of digestive tract; Z95.2 Presence of prosthetic heart valve; Z79.82 Long term (current) use of aspirin; Z79.890 Hormone replacement therapy; Z79.52 Long term (current) use of systemic steroids; Z79.899 Other long term (current) drug therapy; Z88.5 Allergy status to narcotic agent; Z11.52 Encounter for screening for COVID-19; Z85.038 Personal history of other malignant neoplasm of large intestine; I48.0 Paroxysmal atrial fibrillation; R73.03 Prediabetes; Z88.8 Allergy status to other drugs, medicaments and biological substances

== ENCOUNTER → 2023-12-21 | Outpatient (CLI) | payer MEDICARE ==
[~2023-12-21] MED LIST changes: +BENZ200C70 PO; +DIGO0.123 PO; +DIGO0.253 PO; +ELIQ2.5T PO; +FERR1TAB8 PO; +HYDR2.5C54 PR; +LASI20TA3 PO; +LEVO1TAB39 PO; +LOPR1TAB7 PO; +MIRA3350 PO; +PANT-23 PO; +ROSU20TA61 PO; +SENN-85 PO; +SYMB16INH INH; +XANA0.5T PO
== END ==
LOC: M EKG 13:31
PROVIDERS: ATTEND Internal Medicine
DX: I48.91 Unspecified atrial fibrillation (principal); R00.8 Other abnormalities of heart beat

== ENCOUNTER → 2023-12-30 | Outpatient (CLI) | payer MEDICARE | LOC: M ADAMS 08:46 | PROVIDERS: ATTEND Physician Assistant | DX: D64.9 Anemia, unspecified (principal); I48.0 Paroxysmal atrial fibrillation; N18.31 Chronic kidney disease, stage 3a; J44.1 Chronic obstructive pulmonary disease with (acute) exacerbation ==

== ENCOUNTER → 2023-12-30 | Outpatient (REF) | payer MEDICARE ==
[2023-12-30 13:34] LABS: BASO % 0.4 % (0.0-1.0); EOS # 0.2 10^3/uL (0.0-0.5); EOS % 1.9 % (0.0-3.0); HEMATOCRIT 22.8 % (36.0-47.0); LYMPH # 1.4 10^3/uL (1.5-5.0); LYMPH % 13.6 % (24.0-44.0); MEAN CORPUSCULAR HEMOGLOBIN 28.1 pg (27.0-33.0); MEAN CORPUSCULAR HGB CONC 29.8 g/dl (32.0-36.5); MEAN CORPUSCULAR VOLUME 94.2 fl (80.0-96.0); MONO # 1.1 10^3/uL (0.0-0.8); MONO % 10.1 % (2.0-8.0); NEUTROPHILS # 7.7 10^3/uL (1.5-8.5); NEUTROPHILS % 73.1 % (36.0-66.0); PLATELET COUNT, AUTOMATED 189 10^3/uL (150-450); RED BLOOD COUNT 2.42 10^6/uL (4.00-5.40); WHITE BLOOD COUNT 10.5 10^3/uL (4.0-10.0)
[2023-12-30 13:36] LABS: CALCIUM LEVEL 10.5 MG/DL (8.3-10.6); CHOLESTEROL RISK RATIO 2.94 (<5); CREATININE FOR GFR 1.42 MG/DL (0.55-1.30); HDL CHOLESTEROL 49.2 MG/DL (>40); LDL CHOLESTEROL 66.4 MG/DL (<100); MAGNESIUM LEVEL 1.8 MG/DL (1.8-2.4); NON-HDL-C 95.8 MG/DL; POTASSIUM SERUM 4.2 MMOL/L (3.5-5.1)
[2023-12-30 13:41] LABS: HEMOGLOBIN 6.8 g/dl (12.0-15.5)
== END ==
LOC: M SFHCADAM 08:07
PROVIDERS: ATTEND Physician Assistant
DX: D64.9 Anemia, unspecified (principal); I48.0 Paroxysmal atrial fibrillation; N18.31 Chronic kidney disease, stage 3a

== ENCOUNTER → 2023-12-31 | Outpatient (CLI) | payer MEDICARE | LOC: M LAB 10:58 | PROVIDERS: ATTEND Physician Assistant | DX: D64.9 Anemia, unspecified (principal) ==

== ENCOUNTER 2024-01-01 10:04 | Outpatient (CLI) | payer MEDICARE ==
[~2024-01-01] VITALS: Ht 157.5 cm; Wt 56.3 kg
[2024-01-01 10:45] VITALS: BP 177/88; O2SAT 100
[2024-01-01 11:15] VITALS: BP 150/65; TEMP 97.7; O2SAT 100
[2024-01-01 12:45] VITALS: BP 156/77; TEMP 97.8; O2SAT 98
[2024-01-01 13:47] VITALS: BP 145/65; TEMP 98; O2SAT 100
[2024-01-01 15:00] VITALS: BP 166/77; TEMP 97; O2SAT 98
[2024-01-01 15:25] VITALS: BP 164/79; O2SAT 97
== END 2024-01-01 15:25 ==
LOC: M INFU 10:04
PROVIDERS: ATTEND Physician Assistant
DX: D64.9 Anemia, unspecified (principal); Z88.5 Allergy status to narcotic agent
CPT/HCPCS: 36430; P9016

== ENCOUNTER → 2024-01-04 | Outpatient (REF) | payer MEDICARE | LOC: M LAB REF 10:00 | PROVIDERS: ATTEND Internal Medicine Gastroenterology | DX: K50.00 Crohn's disease of small intestine without complications (principal); K44.9 Diaphragmatic hernia without obstruction or gangrene; K92.2 Gastrointestinal hemorrhage, unspecified; R19.7 Diarrhea, unspecified; Z85.038 Personal history of other malignant neoplasm of large intestine; A08.11 Acute gastroenteropathy due to Norwalk agent ==

== ENCOUNTER → 2024-01-08 | Outpatient (REF) | payer MEDICARE ==
[2024-01-08 13:08] LABS: HEMATOCRIT 38.3 % (36.0-47.0); HEMOGLOBIN 11.9 g/dl (12.0-15.5); MEAN CORPUSCULAR HEMOGLOBIN 28.3 pg (27.0-33.0); MEAN CORPUSCULAR HGB CONC 31.1 g/dl (32.0-36.5); PLATELET COUNT, AUTOMATED 229 10^3/uL (150-450); RED BLOOD COUNT 4.21 10^6/uL (4.00-5.40); WHITE BLOOD COUNT 7.1 10^3/uL (4.0-10.0)
== END ==
LOC: M LABDRWAD 12:21
PROVIDERS: ATTEND Internal Medicine Gastroenterology
DX: R19.7 Diarrhea, unspecified (principal); K50.00 Crohn's disease of small intestine without complications; K44.9 Diaphragmatic hernia without obstruction or gangrene; K92.2 Gastrointestinal hemorrhage, unspecified; Z85.038 Personal history of other malignant neoplasm of large intestine

== ENCOUNTER → 2024-01-08 | Outpatient (REF) | payer MEDICARE ==
[2024-01-08 13:03] LABS: CALCIUM LEVEL 10.3 MG/DL (8.3-10.6); CREATININE FOR GFR 1.25 MG/DL (0.55-1.30); MAGNESIUM LEVEL 1.6 MG/DL (1.8-2.4); POTASSIUM SERUM 3.7 MMOL/L (3.5-5.1)
[2024-01-08 13:08] LABS: BASO % 0.6 % (0.0-1.0); EOS # 0.2 10^3/uL (0.0-0.5); EOS % 2.7 % (0.0-3.0); HEMATOCRIT 38.8 % (36.0-47.0); HEMOGLOBIN 11.9 g/dl (12.0-15.5); LYMPH # 1.6 10^3/uL (1.5-5.0); LYMPH % 22.9 % (24.0-44.0); MEAN CORPUSCULAR HEMOGLOBIN 27.9 pg (27.0-33.0); MEAN CORPUSCULAR HGB CONC 30.7 g/dl (32.0-36.5); MEAN CORPUSCULAR VOLUME 90.9 fl (80.0-96.0); MONO # 0.8 10^3/uL (0.0-0.8); MONO % 11.5 % (2.0-8.0); NEUTROPHILS # 4.3 10^3/uL (1.5-8.5); NEUTROPHILS % 61.6 % (36.0-66.0); PLATELET COUNT, AUTOMATED 220 10^3/uL (150-450); RED BLOOD COUNT 4.27 10^6/uL (4.00-5.40)
== END ==
LOC: M SFHCADAM 12:20
PROVIDERS: ATTEND Physician Assistant
DX: E61.2 Magnesium deficiency (principal); D50.9 Iron deficiency anemia, unspecified; N18.31 Chronic kidney disease, stage 3a; R19.7 Diarrhea, unspecified; K50.00 Crohn's disease of small intestine without complications; K44.9 Diaphragmatic hernia without obstruction or gangrene; K92.2 Gastrointestinal hemorrhage, unspecified; Z85.038 Personal history of other malignant neoplasm of large intestine

== ENCOUNTER → 2024-02-05 | Outpatient (CLI) | payer MEDICARE ==
[~2024-02-05] MED LIST changes: -ROSU20TA61 PO; +ROSU20TA86 PO
== END ==
LOC: M ONCR 14:15
PROVIDERS: ATTEND General Practice
DX: C34.2 Malignant neoplasm of middle lobe, bronchus or lung (principal); C18.9 Malignant neoplasm of colon, unspecified; Z85.841 Personal history of malignant neoplasm of brain; F17.210 Nicotine dependence, cigarettes, uncomplicated; Z79.01 Long term (current) use of anticoagulants; Z79.51 Long term (current) use of inhaled steroids; Z79.890 Hormone replacement therapy; Z79.899 Other long term (current) drug therapy; Z88.5 Allergy status to narcotic agent; Z92.21 Personal history of antineoplastic chemotherapy; Z92.3 Personal history of irradiation; Z98.890 Other specified postprocedural states
CPT/HCPCS: 99406; G0463

== ENCOUNTER → 2024-02-11 | Outpatient (CLI) | payer MEDICARE ==
[~2024-02-11] MED LIST changes: +ROSU20TA61 PO; -ROSU20TA86 PO
== END ==
LOC: M RAD 13:22
PROVIDERS: ATTEND Internal Medicine Pulmonary Disease
DX: R91.8 Other nonspecific abnormal finding of lung field (principal); J98.11 Atelectasis

== ENCOUNTER → 2024-02-25 | Outpatient (CLI) | payer MEDICARE ==
[~2024-02-25] MED LIST changes: -ROSU20TA61 PO; +ROSU20TA86 PO
[2024-02-25 15:18] LABS: HEMATOCRIT 41.9 % (36.0-47.0); HEMOGLOBIN 13.4 g/dl (12.0-15.5); MEAN CORPUSCULAR VOLUME 87.5 fl (80.0-96.0); PLATELET COUNT, AUTOMATED 181 10^3/uL (150-450); RED BLOOD COUNT 4.79 10^6/uL (4.00-5.40); WHITE BLOOD COUNT 10.3 10^3/uL (4.0-10.0)
[2024-02-25 15:50] LABS: PERCENT SATURATION 24.9 % (13.2-45.0)
[2024-02-25 15:51] LABS: BILIRUBIN,TOTAL 0.5 MG/DL (0.3-1.2); CALCIUM LEVEL 10.2 MG/DL (8.3-10.6); CHOLESTEROL RISK RATIO 3.75 (<5); CREATININE FOR GFR 1.24 MG/DL (0.55-1.30); GLOMERULAR FILTRATION RATE 44.4 (>39); HDL CHOLESTEROL 47.9 MG/DL (>40); LDL CHOLESTEROL 95.1 MG/DL (<100); MAGNESIUM LEVEL 1.5 MG/DL (1.8-2.4); NON-HDL-C 132.1 MG/DL; TOTAL PROTEIN 6.2 G/DL (5.7-8.2)
[2024-02-25 15:52] LABS: FERRITIN 42.7 NG/ML (7.3-270.7); TOTAL 25(OH) VITAMIN D 62.5 NG/ML (20.0-100.0)
== END ==
LOC: M PLALAB 12:01
PROVIDERS: ATTEND Family Medicine
DX: N18.31 Chronic kidney disease, stage 3a (principal); E83.52 Hypercalcemia; E78.5 Hyperlipidemia, unspecified; E61.2 Magnesium deficiency

== ENCOUNTER → 2024-03-02 | Outpatient (REF) | payer MEDICARE ==
[2024-03-02 16:10] LABS: APPEARANCE, URINE CLOUDY (CLEAR); BACTERIA, URINE AUTO 1+ (NEGATIVE); BILIRUBIN, URINE AUTO NEGATIVE (NEGATIVE); BLOOD, URINE BLOOD NEGATIVE (NEGATIVE); COLOR, URINE AMBER (YELLOW); GLUCOSE, URINE (UA) AUTO NEGATIVE (NEGATIVE); KETONE, URINE AUTO NEGATIVE (NEGATIVE); LEUKOCYTE ESTERASE, URINE AUTO 2+ (NEGATIVE); MUCUS, URINE SMALL (NEGATIVE); NITRITE, URINE AUTO POSITIVE (NEGATIVE); PROTEIN, URINE AUTO 2+ mg/dL (NEGATIVE); RBC, URINE AUTO 1 /HPF (0-3); SPECIFIC GRAVITY URINE AUTO 1.015 (1.002-1.035); SQUAMOUS EPITHELIAL CELL UR AU 9 /HPF (0-6); UROBILINOGEN, URINE AUTO 0.2 mg/dL (0.0-2.0); WBC, URINE AUTO 179 /HPF (0-3)
== END ==
LOC: M SMT 14:53
PROVIDERS: ATTEND Nurse Practitioner Family
DX: N39.0 Urinary tract infection, site not specified (principal)

== ENCOUNTER → 2024-03-05 | Outpatient (CLI) | payer MEDICARE ==
[2024-03-05 18:38] LABS: BASO % 0.1 % (0.0-1.0); EOS % 0.1 % (0.0-3.0); HEMOGLOBIN 11.4 g/dl (12.0-15.5); LYMPH % 7.6 % (24.0-44.0); MEAN CORPUSCULAR HEMOGLOBIN 27.9 pg (27.0-33.0); MEAN CORPUSCULAR HGB CONC 30.8 g/dl (32.0-36.5); MEAN CORPUSCULAR VOLUME 90.7 fl (80.0-96.0); MONO # 1.8 10^3/uL (0.0-0.8); MONO % 12.9 % (2.0-8.0); NEUTROPHILS # 10.7 10^3/uL (1.5-8.5); NEUTROPHILS % 78.6 % (36.0-66.0); PLATELET COUNT, AUTOMATED 197 10^3/uL (150-450); RED BLOOD COUNT 4.08 10^6/uL (4.00-5.40); WHITE BLOOD COUNT 13.7 10^3/uL (4.0-10.0)
[2024-03-05 19:01] LABS: BLOOD UREA NITROGEN 20 MG/DL (9-23); CALCIUM LEVEL 10.1 MG/DL (8.3-10.6); CARBON DIOXIDE LEVEL 37 MMOL/L (20-31); CHLORIDE LEVEL 99 MMOL/L (98-107); CREATININE FOR GFR 0.94 MG/DL (0.55-1.30); GLOMERULAR FILTRATION RATE > 60.0 (>39); GLUCOSE, FASTING 155 MG/DL (74-106); MAGNESIUM LEVEL 1.8 MG/DL (1.8-2.4); POTASSIUM SERUM 3.6 MMOL/L (3.5-5.1); SODIUM LEVEL 138 MMOL/L (136-145)
== END ==
LOC: M PLALAB 14:59
PROVIDERS: ATTEND Physician Assistant
DX: N30.00 Acute cystitis without hematuria (principal); I11.9 Hypertensive heart disease without heart failure

== ENCOUNTER → 2024-03-17 | Outpatient (REF) | payer MEDICARE ==
[2024-03-17 13:37] LABS: BASO # 0.1 10^3/uL (0.0-0.2); BASO % 0.9 % (0.0-1.0); EOS # 0.3 10^3/uL (0.0-0.5); EOS % 2.1 % (0.0-3.0); HEMATOCRIT 39.7 % (36.0-47.0); HEMOGLOBIN 11.9 g/dl (12.0-15.5); LYMPH % 17.1 % (24.0-44.0); MEAN CORPUSCULAR HEMOGLOBIN 27.4 pg (27.0-33.0); MEAN CORPUSCULAR VOLUME 91.5 fl (80.0-96.0); MONO # 1.1 10^3/uL (0.0-0.8); MONO % 9.7 % (2.0-8.0); NEUTROPHILS # 8.1 10^3/uL (1.5-8.5); NEUTROPHILS % 69.4 % (36.0-66.0); PLATELET COUNT, AUTOMATED 399 10^3/uL (150-450); RED BLOOD COUNT 4.34 10^6/uL (4.00-5.40); WHITE BLOOD COUNT 11.7 10^3/uL (4.0-10.0)
[2024-03-17 14:06] LABS: CALCIUM LEVEL 9.5 MG/DL (8.3-10.6); CREATININE FOR GFR 0.96 MG/DL (0.55-1.30); GLOMERULAR FILTRATION RATE 59.7 (>39); POTASSIUM SERUM 4.2 MMOL/L (3.5-5.1)
== END ==
LOC: M SFHCADAM 10:24
PROVIDERS: ATTEND Physician Assistant
DX: N30.00 Acute cystitis without hematuria (principal); I11.9 Hypertensive heart disease without heart failure; N18.31 Chronic kidney disease, stage 3a; E03.9 Hypothyroidism, unspecified

== ENCOUNTER 2024-04-28 09:50 | Inpatient (IN) | payer MEDICARE ==
[~2024-04-28] VITALS: Ht 157.5 cm; Wt 46.8 kg
[~2024-04-28 09:50] MED LIST changes: +BUDE180A2 INH; -BUDE180INH INH
[2024-04-28 10:53] LABS: BASO % 0.2 % (0.0-1.0); EOS # 0.1 10^3/uL (0.0-0.5); EOS % 0.5 % (0.0-3.0); HEMATOCRIT 32.7 % (36.0-47.0); HEMOGLOBIN 10.2 g/dl (12.0-15.5); LYMPH # 1.4 10^3/uL (1.5-5.0); LYMPH % 11.3 % (24.0-44.0); MEAN CORPUSCULAR HEMOGLOBIN 27.2 pg (27.0-33.0); MEAN CORPUSCULAR HGB CONC 31.2 g/dl (32.0-36.5); MEAN CORPUSCULAR VOLUME 87.2 fl (80.0-96.0); MONO % 8.2 % (2.0-8.0); NEUTROPHILS # 9.6 10^3/uL (1.5-8.5); NEUTROPHILS % 79.1 % (36.0-66.0); PLATELET COUNT, AUTOMATED 196 10^3/uL (150-450); RED BLOOD COUNT 3.75 10^6/uL (4.00-5.40); WHITE BLOOD COUNT 12.2 10^3/uL (4.0-10.0)
[2024-04-28 11:07] LABS: BLOOD UREA NITROGEN 12 MG/DL (9-23); CARBON DIOXIDE LEVEL 30 MMOL/L (20-31); CHLORIDE LEVEL 101 MMOL/L (98-107); CREATININE FOR GFR 1.02 MG/DL (0.55-1.30); GLOMERULAR FILTRATION RATE 55.7 (>39); GLUCOSE, FASTING 143 MG/DL (74-106); POTASSIUM SERUM 3.2 MMOL/L (3.5-5.1); SODIUM LEVEL 140 MMOL/L (136-145)
[2024-04-28 11:09] LABS: INR 1.14; PROTHROMBIN TIME 14.9 SECONDS (12.5-14.5)
[2024-04-28] MEDS ORDERED: ISOVUE-370 76% 100ML VIAL As Ordered ONE (13:41)
[2024-04-28 13:44] VITALS: O2SAT 95
[2024-04-28 13:52] LABS: CK-MB VALUE MASS < 1.0 NG/ML (<3.6); CPK CREATINE PHOSPHOKINASE 16 U/L (34-145); MB/CK RELATIVE INDEX 6.25 (< OR =4)
[2024-04-28] MEDS: NS 500 ML IV ONE (13:56)
[2024-04-28] MEDS: IPRATROPIUM 0.5MG/ALBUTEROL 2.5MG INH SOL UD 3ML (DUONEB) NEB ONE (14:22)
[2024-04-28] MEDS ORDERED: DIGO0.123 PO (16:35)
[2024-04-28] MEDS ORDERED: METO50TA7 PO (16:35)
[2024-04-28] MEDS ORDERED: HOME MED LIST COMPLETE! XX SCH (16:40)
[2024-04-28] MEDS: PIPERACILLIN/TAZOBACTAM SOD 3.375 GM in DEXTROSE 5% (D5W) ADV/MINI-BAG 50 ML IV ONE (16:45)
[2024-04-28] MEDS: VANCOMYCIN/WATER FOR INJ 1,000 MG in IV 1 EA IV ONE (17:42)
[2024-04-28 17:50] LABS: ALBUMIN 2.5 G/DL (3.2-5.2); BILIRUBIN,DIRECT 0.1 MG/DL (<0.4); BILIRUBIN,TOTAL 0.3 MG/DL (0.3-1.2); TOTAL PROTEIN 5.5 G/DL (5.7-8.2)
[2024-04-28] MEDS ORDERED: VANCOMYCIN HCL 500 MG in DEXTROSE 5% (D5W) MINI-BAG PLU 100 ML IV SCH (18:25)
[2024-04-28] MEDS: PANTOPRAZOLE 40MG VIAL IV ONE (18:28)
[2024-04-28] MEDS: POTASSIUM CHLORIDE 10MEQ SR TABLET PO ONE (20:25)
[2024-04-28] MEDS: SUCRALFATE SUSP 1GM/10ML UD PO SCH (20:25)
[2024-04-28 20:32] LABS: HEMATOCRIT 28.9 % (36.0-47.0); HEMOGLOBIN 8.9 g/dl (12.0-15.5)
[2024-04-28] MEDS: LABETALOL 100MG/20ML VIAL IV STA (21:25)
[2024-04-28] MEDS: PIPERACILLIN/TAZOBACTAM SOD 3.375 GM in DEXTROSE 5% (D5W) ADV/MINI-BAG 50 ML IV SCH (23:05)
[2024-04-29] VITALS (9 sets, daily range): BP systolic 152–184; BP diastolic 52–74; TEMP 97.6–98.9; O2SAT 94–100
[2024-04-29] MEDS: IPRATROPIUM 0.5MG/ALBUTEROL 2.5MG INH SOL UD 3ML (DUONEB) INH PRN (01:24)
[2024-04-29 02:21] LABS: HEMATOCRIT 26.8 % (36.0-47.0); HEMOGLOBIN 8.5 g/dl (12.0-15.5)
[2024-04-29 05:46] LABS: BASO % 0.4 % (0.0-1.0); EOS # 0.2 10^3/uL (0.0-0.5); EOS % 1.6 % (0.0-3.0); HEMATOCRIT 27.1 % (36.0-47.0); HEMOGLOBIN 8.4 g/dl (12.0-15.5); LYMPH # 1.7 10^3/uL (1.5-5.0); LYMPH % 17.9 % (24.0-44.0); MEAN CORPUSCULAR VOLUME 87.1 fl (80.0-96.0); MONO % 11.1 % (2.0-8.0); NEUTROPHILS # 6.4 10^3/uL (1.5-8.5); NEUTROPHILS % 68.6 % (36.0-66.0); PLATELET COUNT, AUTOMATED 151 10^3/uL (150-450); RED BLOOD COUNT 3.11 10^6/uL (4.00-5.40); WHITE BLOOD COUNT 9.3 10^3/uL (4.0-10.0)
[2024-04-29] MEDS: LEVOTHYROXINE 75MCG TABLET (0.075MG) PO SCH (05:49)
[2024-04-29 06:12] LABS: CALCIUM LEVEL 9.4 MG/DL (8.3-10.6); CREATININE FOR GFR 1.06 MG/DL (0.55-1.30); GLOMERULAR FILTRATION RATE 53.2 (>39); MAGNESIUM LEVEL 1.6 MG/DL (1.8-2.4); POTASSIUM SERUM 3.7 MMOL/L (3.5-5.1)
[2024-04-29] MEDS: METOPROLOL TART 50 MG TAB PO SCH (07:31)
[2024-04-29] MEDS: TIOTROPIUM INHALER/CAPSULE (SPIRIVA) INH SCH (07:42)
[2024-04-29 07:54] LABS: VANCOMYCIN RANDOM 12.9 UG/ML
[2024-04-29] MEDS ORDERED: VANCOMYCIN 1,000MG/200 ML IV BAG IV SCH (09:00)
[2024-04-29 09:12] LABS: PROCALCITONIN 0.11 ng/ml
[2024-04-29] MEDS: PANTOPRAZOLE 40MG VIAL IV SCH (09:30)
[2024-04-29] MEDS: VANCOMYCIN HCL 750 MG, VIAL MATE ADAPTER 1 EACH in NS 250 ML IV SCH (09:30)
[2024-04-29] MEDS: MAG SULF 1GM/100ML (MAG RUN) 1 GM in IV 1 EA IV SCH (11:05)
[2024-04-29 13:46] LABS: CLOSTRIDIUM DIFFICILE PCR NEGATIVE (NEGATIVE)
[2024-04-29] MEDS: NICOTINE 7 MG/24 HR TRANSDERMAL TD ONE (17:44)
[2024-04-29] MEDS: CAPTOpril 6.25 MG PER 1/2 TABLET PO SCH (20:23)
[2024-04-29 21:44] LABS: HEMATOCRIT 27.7 % (36.0-47.0); HEMOGLOBIN 8.6 g/dl (12.0-15.5)
[2024-04-30] VITALS (7 sets, daily range): BP systolic 138–166; BP diastolic 48–74; TEMP 97.4–98.2; O2SAT 90–100
[2024-04-30 09:10] LABS: BASO # 0.1 10^3/uL (0.0-0.2); BASO % 0.5 % (0.0-1.0); EOS # 0.3 10^3/uL (0.0-0.5); EOS % 2.9 % (0.0-3.0); HEMATOCRIT 28.9 % (36.0-47.0); HEMOGLOBIN 8.8 g/dl (12.0-15.5); LYMPH # 1.8 10^3/uL (1.5-5.0); LYMPH % 19.2 % (24.0-44.0); MEAN CORPUSCULAR HEMOGLOBIN 27.8 pg (27.0-33.0); MEAN CORPUSCULAR HGB CONC 30.4 g/dl (32.0-36.5); MEAN CORPUSCULAR VOLUME 91.2 fl (80.0-96.0); MONO # 0.8 10^3/uL (0.0-0.8); MONO % 9.1 % (2.0-8.0); NEUTROPHILS # 6.3 10^3/uL (1.5-8.5); NEUTROPHILS % 67.8 % (36.0-66.0); PLATELET COUNT, AUTOMATED 148 10^3/uL (150-450); RED BLOOD COUNT 3.17 10^6/uL (4.00-5.40); WHITE BLOOD COUNT 9.3 10^3/uL (4.0-10.0)
[2024-04-30] MEDS: CAPTOpril 12.5 MG TAB PO SCH (09:36)
[2024-04-30] MEDS: LOPERAMIDE 2 MG CAPLET PO PRN (09:37)
[2024-04-30 09:52] LABS: CALCIUM LEVEL 9.5 MG/DL (8.3-10.6); CREATININE FOR GFR 1.08 MG/DL (0.55-1.30); GLOMERULAR FILTRATION RATE 52.1 (>39); MAGNESIUM LEVEL 2.1 MG/DL (1.8-2.4); POTASSIUM SERUM 3.6 MMOL/L (3.5-5.1)
[2024-04-30] MEDS: AUGMENTIN 875 MG TAB PO SCH (13:10)
[2024-04-30] MEDS: LR 1,000 ML IV ONE (13:10)
[2024-04-30] MEDS: PINK BISMUTH SUSP 524MG/30ML ORAL SYRINGE PO SCH (17:00)
[2024-04-30] MEDS: PANTOPRAZOLE 40MG TAB (PROTONIX) PO SCH (20:59)
[2024-05-01 04:20] VITALS: BP 124/42; TEMP 98; O2SAT 90
[2024-05-01 07:21] LABS: BASO # 0.1 10^3/uL (0.0-0.2); BASO % 0.6 % (0.0-1.0); EOS # 0.4 10^3/uL (0.0-0.5); EOS % 4.4 % (0.0-3.0); HEMATOCRIT 25.5 % (36.0-47.0); HEMOGLOBIN 7.8 g/dl (12.0-15.5); LYMPH # 1.8 10^3/uL (1.5-5.0); LYMPH % 22.2 % (24.0-44.0); MEAN CORPUSCULAR HEMOGLOBIN 27.6 pg (27.0-33.0); MEAN CORPUSCULAR HGB CONC 30.6 g/dl (32.0-36.5); MEAN CORPUSCULAR VOLUME 90.1 fl (80.0-96.0); MONO # 0.8 10^3/uL (0.0-0.8); MONO % 10.3 % (2.0-8.0); NEUTROPHILS % 61.9 % (36.0-66.0); PLATELET COUNT, AUTOMATED 143 10^3/uL (150-450); RED BLOOD COUNT 2.83 10^6/uL (4.00-5.40)
[2024-05-01 07:46] VITALS: BP 142/54; TEMP 96.9; O2SAT 93
[2024-05-01] MEDS: NICOTINE 21MG/24HR 1 EA TRANSDERMAL TD SCH (08:14)
[2024-05-01 08:15] VITALS: BP 142/54
[2024-05-01] MEDS: DIGOXIN 0.125 MG TAB PO SCH (08:15)
[2024-05-01] MEDS ORDERED: PANT40TA29 PO (11:28)
[2024-05-01] MEDS ORDERED: AMOX875T PO (11:28)
[2024-05-01] MEDS ORDERED: LISI20TA33 PO (11:28)
[2024-05-01 12:27] LABS: QuantiFERON-TB Gold Plus NEGATIVE (NEGATIVE)
== END 2024-05-01 14:48 | disposition home or self-care (01) | DRG 378 ==
LOC: M ED 09:50 → M ED INP 19:01 → M PCU 04-29 04:51
PROVIDERS: ADMIT Student in an Organized Health Care Education/Training Program; ATTEND Student in an Organized Health Care Education/Training Program
DX: K29.51 Unspecified chronic gastritis with bleeding (principal); C79.31 Secondary malignant neoplasm of brain; K50.90 Crohn's disease, unspecified, without complications; K76.6 Portal hypertension; I10 Essential (primary) hypertension; E78.5 Hyperlipidemia, unspecified; K21.9 Gastro-esophageal reflux disease without esophagitis; I34.1 Nonrheumatic mitral (valve) prolapse; E03.9 Hypothyroidism, unspecified; I25.10 Atherosclerotic heart disease of native coronary artery without angina pectoris; M81.0 Age-related osteoporosis without current pathological fracture; M48.00 Spinal stenosis, site unspecified; F17.210 Nicotine dependence, cigarettes, uncomplicated; R91.8 Other nonspecific abnormal finding of lung field; I48.91 Unspecified atrial fibrillation; J44.9 Chronic obstructive pulmonary disease, unspecified; Z79.01 Long term (current) use of anticoagulants; Z79.890 Hormone replacement therapy; Z79.899 Other long term (current) drug therapy; Z88.5 Allergy status to narcotic agent; Z90.79 Acquired absence of other genital organ(s); Z90.49 Acquired absence of other specified parts of digestive tract; Z95.2 Presence of prosthetic heart valve; Z95.828 Presence of other vascular implants and grafts; Z85.118 Personal history of other malignant neoplasm of bronchus and lung; Z90.2 Acquired absence of lung [part of]; Z85.038 Personal history of other malignant neoplasm of large intestine

== ENCOUNTER → 2024-05-06 | Outpatient (REF) | payer MEDICARE ==
[~2024-05-06] MED LIST changes: +AMOX875T PO; +LISI20TA33 PO; +METO50TA7 PO; +PANT40TA29 PO
[2024-05-06 17:34] LABS: HEMATOCRIT 29.3 % (36.0-47.0); HEMOGLOBIN 9.1 g/dl (12.0-15.5); MEAN CORPUSCULAR HEMOGLOBIN 28.1 pg (27.0-33.0); MEAN CORPUSCULAR HGB CONC 31.1 g/dl (32.0-36.5); MEAN CORPUSCULAR VOLUME 90.4 fl (80.0-96.0); PLATELET COUNT, AUTOMATED 186 10^3/uL (150-450); RED BLOOD COUNT 3.24 10^6/uL (4.00-5.40); WHITE BLOOD COUNT 10.7 10^3/uL (4.0-10.0)
[2024-05-06 17:38] LABS: PERCENT SATURATION 17.8 % (13.2-45.0)
[2024-05-06 17:39] LABS: ALBUMIN 2.5 G/DL (3.2-5.2); BILIRUBIN,TOTAL 0.4 MG/DL (0.3-1.2); CALCIUM LEVEL 9.7 MG/DL (8.3-10.6); CHOLESTEROL RISK RATIO 2.94 (<5); CREATININE FOR GFR 1.05 MG/DL (0.55-1.30); DIGOXIN LEVEL 0.9 NG/ML (0.8-2.0); GLOMERULAR FILTRATION RATE 53.8 (>39); HDL CHOLESTEROL 54.4 MG/DL (>40); LDL CHOLESTEROL 83.6 MG/DL (<100); MAGNESIUM LEVEL 1.7 MG/DL (1.8-2.4); NON-HDL-C 105.6 MG/DL; POTASSIUM SERUM 3.2 MMOL/L (3.5-5.1); TOTAL PROTEIN 5.9 G/DL (5.7-8.2)
[2024-05-06 17:40] LABS: FERRITIN 26.8 NG/ML (7.3-270.7); FREE T4 1.51 NG/DL (0.89-1.76); THYROID STIMULATING HORMONE 0.965 uIU/ML (0.55-4.78)
== END ==
LOC: M SFHCADAM 11:21
PROVIDERS: ATTEND Family Medicine
DX: N30.00 Acute cystitis without hematuria (principal); N18.31 Chronic kidney disease, stage 3a; E03.9 Hypothyroidism, unspecified; I48.0 Paroxysmal atrial fibrillation; E78.5 Hyperlipidemia, unspecified

== ENCOUNTER → 2024-05-27 | Outpatient (REF) | payer MEDICARE ==
[2024-05-27 18:11] LABS: HEMATOCRIT 29.1 % (36.0-47.0); HEMOGLOBIN 8.8 g/dl (12.0-15.5); MEAN CORPUSCULAR HEMOGLOBIN 27.4 pg (27.0-33.0); MEAN CORPUSCULAR HGB CONC 30.2 g/dl (32.0-36.5); MEAN CORPUSCULAR VOLUME 90.7 fl (80.0-96.0); PLATELET COUNT, AUTOMATED 200 10^3/uL (150-450); RED BLOOD COUNT 3.21 10^6/uL (4.00-5.40); WHITE BLOOD COUNT 8.2 10^3/uL (4.0-10.0)
[2024-05-27 18:18] LABS: TOTAL IRON BINDING CAPACITY 291 UG/DL (250-425)
[2024-05-27 18:19] LABS: ALBUMIN 2.4 G/DL (3.2-5.2); ALKALINE PHOSPHATASE 80 U/L (35-104); ALT/SGPT < 9 U/L (7.0-40); AST/SGOT 13 U/L (<34); BILIRUBIN,TOTAL 0.3 MG/DL (0.3-1.2); BLOOD UREA NITROGEN 7 MG/DL (9-23); CALCIUM LEVEL 9.7 MG/DL (8.3-10.6); CARBON DIOXIDE LEVEL 39 MMOL/L (20-31); CHLORIDE LEVEL 101 MMOL/L (98-107); CREATININE FOR GFR 0.96 MG/DL (0.55-1.30); GLOMERULAR FILTRATION RATE 59.5 (>32); GLUCOSE, FASTING 101 MG/DL (74-106); IRON (FE) 22 UG/DL (50-170); PERCENT SATURATION 7.6 % (13.2-45.0); POTASSIUM SERUM 3.2 MMOL/L (3.5-5.1); SODIUM LEVEL 146 MMOL/L (136-145); TOTAL PROTEIN 5.9 G/DL (5.7-8.2)
[2024-05-27 18:22] LABS: FERRITIN 18.4 NG/ML (7.3-270.7)
== END ==
LOC: M SFHCADAM 11:56
PROVIDERS: ATTEND Family Medicine
DX: D50.0 Iron deficiency anemia secondary to blood loss (chronic) (principal); N18.31 Chronic kidney disease, stage 3a; I11.9 Hypertensive heart disease without heart failure

== ENCOUNTER 2024-05-29 11:00 | Inpatient (IN) | payer MEDICARE ==
[~2024-05-29] VITALS: Ht 157.5 cm; Wt 46.2 kg
[2024-05-29 12:10] LABS: BASO # 0.1 10^3/uL (0.0-0.2); BASO % 0.7 % (0.0-1.0); EOS # 0.1 10^3/uL (0.0-0.5); EOS % 1.4 % (0.0-3.0); HEMATOCRIT 26.9 % (36.0-47.0); HEMOGLOBIN 8.1 g/dl (12.0-15.5); LYMPH # 1.2 10^3/uL (1.5-5.0); LYMPH % 16.3 % (24.0-44.0); MEAN CORPUSCULAR HEMOGLOBIN 27.1 pg (27.0-33.0); MEAN CORPUSCULAR HGB CONC 30.1 g/dl (32.0-36.5); MONO % 13.2 % (2.0-8.0); NEUTROPHILS % 68.1 % (36.0-66.0); PLATELET COUNT, AUTOMATED 199 10^3/uL (150-450); RED BLOOD COUNT 2.99 10^6/uL (4.00-5.40); WHITE BLOOD COUNT 7.3 10^3/uL (4.0-10.0)
[2024-05-29 12:12] LABS: VENOUS BASE EXCESS 13.5 (-2.0-2.0); VENOUS HCO3 40.3 MMOL/L (23.0-27.0); VENOUS O2 SATURATION 97.1 % (60.0-80.0); VENOUS PARTIAL PRESSURE CO2 67.4 mmHg (38.0-50.0); VENOUS PARTIAL PRESSURE O2 97.3 mmHg (30.0-50.0); VENOUS PH 7.395 UNITS (7.330-7.430); VENOUS STANDARD HCO3 37.2 MMOL/L; VENOUS TOTAL CO2 42.4 MMOL/L (24.0-28.0)
[2024-05-29] MEDS: methylPREDNISolone 125MG 2ML VIAL IV ONE (12:15)
[2024-05-29] MEDS: IPRATROPIUM 0.5MG/ALBUTEROL 2.5MG INH SOL UD 3ML (DUONEB) NEB PRN (12:17)
[2024-05-29 12:19] LABS: INR 0.95; PROTHROMBIN TIME 12.9 SECONDS (12.5-14.5)
[2024-05-29 12:43] LABS: ALBUMIN 2.3 G/DL (3.2-5.2); ALKALINE PHOSPHATASE 71 U/L (35-104); ALT/SGPT 10 U/L (7.0-40); AST/SGOT 20 U/L (<34); BILIRUBIN,DIRECT < 0.1 MG/DL (<0.4); BILIRUBIN,TOTAL 0.2 MG/DL (0.3-1.2); BLOOD UREA NITROGEN 6 MG/DL (9-23); CALCIUM LEVEL 9.1 MG/DL (8.3-10.6); CARBON DIOXIDE LEVEL 38 MMOL/L (20-31); CHLORIDE LEVEL 103 MMOL/L (98-107); CREATININE FOR GFR 1.02 MG/DL (0.55-1.30); GLOMERULAR FILTRATION RATE 55.5 (>32); GLUCOSE, FASTING 105 MG/DL (74-106); POTASSIUM SERUM 3.1 MMOL/L (3.5-5.1); SODIUM LEVEL 146 MMOL/L (136-145); THYROID STIMULATING HORMONE 0.224 uIU/ML (0.55-4.78); TOTAL PROTEIN 5.6 G/DL (5.7-8.2)
[2024-05-29] MEDS ORDERED: ISOVUE-370 76% 100ML VIAL As Ordered ONE (12:55)
[2024-05-29 14:33] LABS: DIGOXIN LEVEL 1.2 NG/ML (0.8-2.0)
[2024-05-29] MEDS: FUROSEMIDE 20MG/2ML VIAL IV ONE (15:21)
[2024-05-29] MEDS: KCL 10MEQ/100ML SWI (KRUN) 10 MEQ in IV 1 EA IV SCH (15:22)
[2024-05-29] MEDS ORDERED: ACETAMINOPHEN 325 MG TAB PO PRN (16:15)
[2024-05-29] MEDS ORDERED: ALBUTEROL SULFATE 2.5MG/0.5ML INH NEB SOLN NEB PRN (16:15)
[2024-05-29 17:13] LABS: HEMATOCRIT 28.3 % (36.0-47.0); HEMOGLOBIN 8.6 g/dl (12.0-15.5); MEAN CORPUSCULAR HEMOGLOBIN 26.9 pg (27.0-33.0); MEAN CORPUSCULAR HGB CONC 30.4 g/dl (32.0-36.5); MEAN CORPUSCULAR VOLUME 88.4 fl (80.0-96.0); PLATELET COUNT, AUTOMATED 194 10^3/uL (150-450); WHITE BLOOD COUNT 6.2 10^3/uL (4.0-10.0)
[2024-05-29 17:36] LABS: CALCIUM LEVEL 9.5 MG/DL (8.3-10.6); CREATININE FOR GFR 1.03 MG/DL (0.55-1.30); GLOMERULAR FILTRATION RATE 54.9 (>32); MAGNESIUM LEVEL 1.7 MG/DL (1.8-2.4); POTASSIUM SERUM 3.1 MMOL/L (3.5-5.1)
[2024-05-29 17:40] LABS: PERCENT SATURATION 6.6 % (13.2-45.0)
[2024-05-29 17:41] LABS: FERRITIN 17.6 NG/ML (7.3-270.7); FOLATE 6.07 NG/ML (>5.4)
[2024-05-29] MEDS ORDERED: LISI20TA33 PO (17:42)
[2024-05-29] MEDS ORDERED: PANT40TA29 PO (17:42)
[2024-05-29] MEDS ORDERED: HOME MED LIST COMPLETE! XX SCH (17:45)
[2024-05-29] MEDS: KCL 20MEQ IN D5W 1000ML 1,000 ML IV SCH (17:45)
[2024-05-29 18:00] VITALS: BP 146/56; TEMP 98.1; O2SAT 92
[2024-05-29] MEDS: FERRIC CARBOXYMALTOSE INJ 750 MG, VIAL MATE ADAPTER 1 EACH in NS 100 ML IV ONE (18:19)
[2024-05-29 20:00] VITALS: BP 112/52; TEMP 98.1; O2SAT 95
[2024-05-29] MEDS: IPRATROPIUM 0.5MG/ALBUTEROL 2.5MG INH SOL UD 3ML (DUONEB) NEB SCH (20:32)
[2024-05-29 20:33] VITALS: O2SAT 93
[2024-05-29] MEDS: DIGOXIN 0.125 MG TAB PO SCH (21:25)
[2024-05-29] MEDS: METOPROLOL TART 50 MG TAB PO SCH (21:26)
[2024-05-30] MEDS: methylPREDNISolone 125MG 2ML VIAL IV SCH (00:52)
[2024-05-30 04:00] VITALS: BP 114/48; TEMP 97.2; O2SAT 96
[2024-05-30] MEDS: LEVOTHYROXINE 75MCG TABLET (0.075MG) PO SCH (04:13)
[2024-05-30 08:04] LABS: HEMATOCRIT 26.7 % (36.0-47.0); HEMOGLOBIN 8.2 g/dl (12.0-15.5); MEAN CORPUSCULAR HEMOGLOBIN 26.8 pg (27.0-33.0); MEAN CORPUSCULAR HGB CONC 30.7 g/dl (32.0-36.5); MEAN CORPUSCULAR VOLUME 87.3 fl (80.0-96.0); PLATELET COUNT, AUTOMATED 199 10^3/uL (150-450); RED BLOOD COUNT 3.06 10^6/uL (4.00-5.40); WHITE BLOOD COUNT 6.6 10^3/uL (4.0-10.0)
[2024-05-30] MEDS: NICOTINE 14 MG/24 HR TRANSDERMAL TD SCH (08:23)
[2024-05-30] MEDS: PANTOPRAZOLE 40MG VIAL IV SCH (08:24)
[2024-05-30] MEDS: MAG SULF 1GM/100ML (MAG RUN) 1 GM in IV 1 EA IV SCH (08:26)
[2024-05-30 08:35] LABS: GLOMERULAR FILTRATION RATE 56.8 (>32); MAGNESIUM LEVEL 1.7 MG/DL (1.8-2.4); POTASSIUM SERUM 3.9 MMOL/L (3.5-5.1)
[2024-05-30 09:20] VITALS: O2SAT 98
[2024-05-30 09:45] VITALS: O2SAT 95
[2024-05-30 10:32] VITALS: O2SAT 93
[2024-05-30 12:00] VITALS: BP 112/54; TEMP 97.9; O2SAT 90
[2024-05-30] MEDS: TIOTROPIUM INHALER/CAPSULE (SPIRIVA) INH SCH (17:02)
[2024-05-30 19:53] VITALS: BP 164/47; TEMP 98; O2SAT 99
[2024-05-31 05:56] VITALS: BP 137/63; TEMP 97.9; O2SAT 96
[2024-05-31 09:30] LABS: HEMATOCRIT 27.2 % (36.0-47.0); HEMOGLOBIN 8.2 g/dl (12.0-15.5); MEAN CORPUSCULAR HGB CONC 30.1 g/dl (32.0-36.5); MEAN CORPUSCULAR VOLUME 89.5 fl (80.0-96.0); PLATELET COUNT, AUTOMATED 184 10^3/uL (150-450); RED BLOOD COUNT 3.04 10^6/uL (4.00-5.40); WHITE BLOOD COUNT 11.6 10^3/uL (4.0-10.0)
[2024-05-31 09:44] LABS: BLOOD UREA NITROGEN 12 MG/DL (9-23); CALCIUM LEVEL 9.4 MG/DL (8.3-10.6); CARBON DIOXIDE LEVEL 36 MMOL/L (20-31); CHLORIDE LEVEL 95 MMOL/L (98-107); CREATININE FOR GFR 0.77 MG/DL (0.55-1.30); GLOMERULAR FILTRATION RATE > 60.0 (>32); GLUCOSE, FASTING 238 MG/DL (74-106); POTASSIUM SERUM 3.5 MMOL/L (3.5-5.1); SODIUM LEVEL 138 MMOL/L (136-145)
[2024-05-31 11:43] VITALS: BP 170/70; TEMP 98.6; O2SAT 95
[2024-05-31 12:16] VITALS: BP 168/60
[2024-05-31 15:13] VITALS: BP 152/60; O2SAT 93
[2024-05-31 20:00] VITALS: BP 160/58; TEMP 97.9; O2SAT 98
[2024-05-31] MEDS ORDERED: ALBUTEROL SULFATE 2.5MG/0.5ML INH NEB SOLN NEB PRN (21:25)
[2024-05-31] MEDS: IPRATROPIUM 0.5MG/ALBUTEROL 2.5MG INH SOL UD 3ML (DUONEB) NEB SCH (23:56)
[2024-06-01 04:00] VITALS: BP 169/62; TEMP 97.9; O2SAT 95
[2024-06-01 07:53] LABS: HEMATOCRIT 25.9 % (36.0-47.0); HEMOGLOBIN 7.8 g/dl (12.0-15.5); MEAN CORPUSCULAR HEMOGLOBIN 27.1 pg (27.0-33.0); MEAN CORPUSCULAR HGB CONC 30.1 g/dl (32.0-36.5); MEAN CORPUSCULAR VOLUME 89.9 fl (80.0-96.0); PLATELET COUNT, AUTOMATED 174 10^3/uL (150-450); RED BLOOD COUNT 2.88 10^6/uL (4.00-5.40); WHITE BLOOD COUNT 11.4 10^3/uL (4.0-10.0)
[2024-06-01 08:00] VITALS: O2SAT 98
[2024-06-01 08:01] LABS: BLOOD UREA NITROGEN 15 MG/DL (9-23); CALCIUM LEVEL 9.2 MG/DL (8.3-10.6); CARBON DIOXIDE LEVEL 38 MMOL/L (20-31); CHLORIDE LEVEL 100 MMOL/L (98-107); CREATININE FOR GFR 0.85 MG/DL (0.55-1.30); GLOMERULAR FILTRATION RATE > 60.0 (>32); GLUCOSE, FASTING 159 MG/DL (74-106); POTASSIUM SERUM 3.8 MMOL/L (3.5-5.1); SODIUM LEVEL 142 MMOL/L (136-145)
[2024-06-01 13:00] VITALS: BP 192/67; TEMP 98.1; O2SAT 94
[2024-06-01] MEDS ORDERED: ALBU8.5H INH (13:22)
[2024-06-01] MEDS ORDERED: PRED10TA2 PO (13:22)
[2024-06-01] MEDS ORDERED: IPRA0.00 INH (13:22)
[2024-06-01] MEDS ORDERED: PRED20TA PO (13:22)
[2024-06-01] MEDS ORDERED: ALBU2.5V10 INH (13:22)
[2024-06-01 14:53] VITALS: BP 192/68
[2024-06-01 15:06] VITALS: BP 192/68
[2024-06-01 15:49] VITALS: BP 164/64
== END 2024-06-01 15:54 | disposition home health service (06) | DRG 190 ==
LOC: M ED 11:00 → M ED INP 16:15 → M MSPAV 18:05
PROVIDERS: ADMIT Student in an Organized Health Care Education/Training Program; ATTEND Student in an Organized Health Care Education/Training Program
DX: J44.1 Chronic obstructive pulmonary disease with (acute) exacerbation (principal); J96.01 Acute respiratory failure with hypoxia; K50.90 Crohn's disease, unspecified, without complications; J90 Pleural effusion, not elsewhere classified; D50.9 Iron deficiency anemia, unspecified; Z66 Do not resuscitate; I11.0 Hypertensive heart disease with heart failure; E78.5 Hyperlipidemia, unspecified; I34.1 Nonrheumatic mitral (valve) prolapse; I48.0 Paroxysmal atrial fibrillation; N18.31 Chronic kidney disease, stage 3a; K21.9 Gastro-esophageal reflux disease without esophagitis; E03.9 Hypothyroidism, unspecified; F17.210 Nicotine dependence, cigarettes, uncomplicated; M81.0 Age-related osteoporosis without current pathological fracture; M48.00 Spinal stenosis, site unspecified; Z90.2 Acquired absence of lung [part of]; Z85.118 Personal history of other malignant neoplasm of bronchus and lung; Z85.038 Personal history of other malignant neoplasm of large intestine; Z90.49 Acquired absence of other specified parts of digestive tract; Z90.79 Acquired absence of other genital organ(s); Z95.828 Presence of other vascular implants and grafts; Z79.890 Hormone replacement therapy; Z79.899 Other long term (current) drug therapy; Z88.5 Allergy status to narcotic agent

== ENCOUNTER → 2024-06-03 | Outpatient (REF) | payer MEDICARE ==
[~2024-06-03] MED LIST changes: +ALBU2.5V10 INH; +ALBU8.5H INH
[2024-06-03 14:43] LABS: HEMATOCRIT 31.2 % (36.0-47.0); HEMOGLOBIN 9.2 g/dl (12.0-15.5); MEAN CORPUSCULAR HEMOGLOBIN 27.1 pg (27.0-33.0); MEAN CORPUSCULAR HGB CONC 29.5 g/dl (32.0-36.5); PLATELET COUNT, AUTOMATED 226 10^3/uL (150-450); RED BLOOD COUNT 3.39 10^6/uL (4.00-5.40); WHITE BLOOD COUNT 14.2 10^3/uL (4.0-10.0)
[2024-06-03 15:10] LABS: FERRITIN 505.8 NG/ML (7.3-270.7)
[2024-06-03 15:11] LABS: BLOOD UREA NITROGEN 20 MG/DL (9-23); CALCIUM LEVEL 9.5 MG/DL (8.3-10.6); CARBON DIOXIDE LEVEL 39 MMOL/L (20-31); CHLORIDE LEVEL 101 MMOL/L (98-107); CREATININE FOR GFR 0.85 MG/DL (0.55-1.30); GLOMERULAR FILTRATION RATE > 60.0 (>32); GLUCOSE, FASTING 96 MG/DL (74-106); POTASSIUM SERUM 3.8 MMOL/L (3.5-5.1); SODIUM LEVEL 145 MMOL/L (136-145); TOTAL IRON BINDING CAPACITY 297 UG/DL (250-425)
[2024-06-03 15:12] LABS: IRON (FE) 166 UG/DL (50-170); PERCENT SATURATION 55.9 % (13.2-45.0)
== END ==
LOC: M SFHCADAM 09:19
PROVIDERS: ATTEND Family Medicine
DX: D50.0 Iron deficiency anemia secondary to blood loss (chronic) (principal); N18.31 Chronic kidney disease, stage 3a

== ENCOUNTER 2024-06-04 10:46 | Emergency (ER) | payer MEDICARE ==
[~2024-06-04] VITALS: Ht 157.5 cm; Wt 46.2 kg
[2024-06-04 13:47] VITALS: TEMP 97.2
[2024-06-04 14:30] VITALS: BP 199/92; O2SAT 98
== END 2024-06-04 14:51 | disposition home or self-care (01) ==
LOC: M ED 10:46
DX: I10 Essential (primary) hypertension (principal); J44.9 Chronic obstructive pulmonary disease, unspecified; K21.9 Gastro-esophageal reflux disease without esophagitis; D64.9 Anemia, unspecified; Z87.891 Personal history of nicotine dependence; Z88.5 Allergy status to narcotic agent; Z79.51 Long term (current) use of inhaled steroids; Z79.52 Long term (current) use of systemic steroids; Z79.899 Other long term (current) drug therapy
CPT/HCPCS: 36430; 99284; P9016

== ENCOUNTER → 2024-06-04 | Outpatient (CLI) | payer MEDICARE ==
[2024-06-04 08:07] VITALS: BP 190/73; O2SAT 99
[2024-06-04 08:30] VITALS: BP 189/75; TEMP 97.5; O2SAT 97
[2024-06-04 08:31] VITALS: BP 189/75; O2SAT 97
[2024-06-04 09:30] VITALS: BP 190/72; TEMP 98.4; O2SAT 91
[2024-06-04 10:15] VITALS: BP 190/72; TEMP 98; O2SAT 88
[2024-06-04 10:35] VITALS: BP 192/72; TEMP 98; O2SAT 94
== END ==
LOC: M INFU 07:16
PROVIDERS: ATTEND Family Medicine
DX: D64.9 Anemia, unspecified (principal); Z88.5 Allergy status to narcotic agent
CPT/HCPCS: 36430; P9016

== ENCOUNTER → 2024-06-10 | Outpatient (REF) | payer MEDICARE ==
[2024-06-10 13:07] LABS: HEMATOCRIT 42.9 % (36.0-47.0); HEMOGLOBIN 12.8 g/dl (12.0-15.5); MEAN CORPUSCULAR HEMOGLOBIN 27.1 pg (27.0-33.0); MEAN CORPUSCULAR HGB CONC 29.8 g/dl (32.0-36.5); MEAN CORPUSCULAR VOLUME 90.9 fl (80.0-96.0); PLATELET COUNT, AUTOMATED 131 10^3/uL (150-450); RED BLOOD COUNT 4.72 10^6/uL (4.00-5.40); WHITE BLOOD COUNT 11.6 10^3/uL (4.0-10.0)
[2024-06-10 13:14] LABS: DIGOXIN LEVEL 1.1 NG/ML (0.8-2.0); IRON (FE) 65 UG/DL (50-170); PERCENT SATURATION 21.9 % (13.2-45.0); TOTAL IRON BINDING CAPACITY 297 UG/DL (250-425)
[2024-06-10 13:15] LABS: FERRITIN 398.9 NG/ML (7.3-270.7); FREE T4 1.69 NG/DL (0.89-1.76); THYROID STIMULATING HORMONE 1.053 uIU/ML (0.55-4.78)
[2024-06-10 13:22] LABS: ALBUMIN 2.8 G/DL (3.2-5.2); ALKALINE PHOSPHATASE 62 U/L (35-104); ALT/SGPT 11 U/L (7.0-40); AST/SGOT 12 U/L (<34); BILIRUBIN,TOTAL 0.5 MG/DL (0.3-1.2); BLOOD UREA NITROGEN 17 MG/DL (9-23); CALCIUM LEVEL 9.3 MG/DL (8.3-10.6); CARBON DIOXIDE LEVEL > 40.0 MMOL/L (20-31); CHLORIDE LEVEL 100 MMOL/L (98-107); CREATININE FOR GFR 0.89 MG/DL (0.55-1.30); GLOMERULAR FILTRATION RATE > 60.0 (>32); GLUCOSE, FASTING 79 MG/DL (74-106); POTASSIUM SERUM 4.6 MMOL/L (3.5-5.1); SODIUM LEVEL 146 MMOL/L (136-145); TOTAL PROTEIN 5.8 G/DL (5.7-8.2)
== END ==
LOC: M SFHCADAM 09:46
PROVIDERS: ATTEND Family Medicine
DX: I11.9 Hypertensive heart disease without heart failure (principal); E03.9 Hypothyroidism, unspecified; N18.31 Chronic kidney disease, stage 3a; I48.91 Unspecified atrial fibrillation

== ENCOUNTER → 2024-06-17 | Outpatient (REF) | payer MEDICARE ==
[2024-06-17 13:07] LABS: HEMATOCRIT 40.8 % (36.0-47.0); HEMOGLOBIN 12.8 g/dl (12.0-15.5); MEAN CORPUSCULAR HEMOGLOBIN 27.9 pg (27.0-33.0); MEAN CORPUSCULAR HGB CONC 31.4 g/dl (32.0-36.5); MEAN CORPUSCULAR VOLUME 89.1 fl (80.0-96.0); PLATELET COUNT, AUTOMATED 130 10^3/uL (150-450); RED BLOOD COUNT 4.58 10^6/uL (4.00-5.40); WHITE BLOOD COUNT 11.4 10^3/uL (4.0-10.0)
== END ==
LOC: M SFHCADAM 09:26
PROVIDERS: ATTEND Family Medicine
DX: D64.9 Anemia, unspecified (principal)

== ENCOUNTER → 2024-06-29 | Outpatient (REF) | payer MEDICARE ==
[~2024-06-29] MED LIST changes: +BUSP10TA PO; +CARV25TA PO; +FURO20TA2 PO
[2024-06-29 14:42] LABS: HEMATOCRIT 44.7 % (36.0-47.0); HEMOGLOBIN 13.5 g/dl (12.0-15.5); MEAN CORPUSCULAR HEMOGLOBIN 27.2 pg (27.0-33.0); MEAN CORPUSCULAR HGB CONC 30.2 g/dl (32.0-36.5); MEAN CORPUSCULAR VOLUME 89.9 fl (80.0-96.0); PLATELET COUNT, AUTOMATED 134 10^3/uL (150-450); RED BLOOD COUNT 4.97 10^6/uL (4.00-5.40); WHITE BLOOD COUNT 9.5 10^3/uL (4.0-10.0)
[2024-06-29 15:40] LABS: CALCIUM LEVEL 10.3 MG/DL (8.3-10.6); CREATININE FOR GFR 1.66 MG/DL (0.55-1.30); GLOMERULAR FILTRATION RATE 31.6 (>32); POTASSIUM SERUM 4.9 MMOL/L (3.5-5.1)
== END ==
LOC: M SFHCADAM 09:40
PROVIDERS: ATTEND Physician Assistant
DX: D64.9 Anemia, unspecified (principal); I11.9 Hypertensive heart disease without heart failure

== ENCOUNTER 2024-07-02 13:39 | Inpatient (IN) | payer MEDICARE ==
[~2024-07-02] VITALS: Ht 157.5 cm; Wt 47.7 kg
[~2024-07-02 13:39] MED LIST changes: -BUSP10TA PO; -CARV25TA PO; -FURO20TA2 PO
[2024-07-02 14:22] LABS: BASO % 0.3 % (0.0-1.0); EOS # 0.1 10^3/uL (0.0-0.5); EOS % 0.8 % (0.0-3.0); HEMATOCRIT 38.2 % (36.0-47.0); HEMOGLOBIN 11.8 g/dl (12.0-15.5); LYMPH # 1.3 10^3/uL (1.5-5.0); LYMPH % 14.5 % (24.0-44.0); MEAN CORPUSCULAR HEMOGLOBIN 27.4 pg (27.0-33.0); MEAN CORPUSCULAR HGB CONC 30.9 g/dl (32.0-36.5); MEAN CORPUSCULAR VOLUME 88.8 fl (80.0-96.0); MONO # 1.2 10^3/uL (0.0-0.8); MONO % 12.5 % (2.0-8.0); NEUTROPHILS # 6.4 10^3/uL (1.5-8.5); NEUTROPHILS % 69.3 % (36.0-66.0); PLATELET COUNT, AUTOMATED 102 10^3/uL (150-450); WHITE BLOOD COUNT 9.3 10^3/uL (4.0-10.0)
[2024-07-02 14:32] LABS: INR 0.95; PARTIAL THROMBOPLASTIN TIME 25.6 SECONDS (24.8-34.2)
[2024-07-02 14:54] LABS: C REACTIVE PROTEIN QUANTITATIV 1.45 MG/DL (<1.0)
[2024-07-02 15:00] LABS: PROCALCITONIN 0.19 ng/ml
[2024-07-02 15:01] LABS: APPEARANCE, URINE CLEAR (CLEAR); BACTERIA, URINE AUTO NEGATIVE (NEGATIVE); BILIRUBIN, URINE AUTO NEGATIVE (NEGATIVE); BLOOD, URINE BLOOD NEGATIVE (NEGATIVE); COLOR, URINE YELLOW (YELLOW); GLUCOSE, URINE (UA) AUTO NEGATIVE (NEGATIVE); KETONE, URINE AUTO NEGATIVE (NEGATIVE); LEUKOCYTE ESTERASE, URINE AUTO NEGATIVE (NEGATIVE); MUCUS, URINE SMALL (NEGATIVE); NITRITE, URINE AUTO NEGATIVE (NEGATIVE); PROTEIN, URINE AUTO NEGATIVE (NEGATIVE); RBC, URINE AUTO 0 /HPF (0-3); SPECIFIC GRAVITY URINE AUTO 1.011 (1.002-1.035); SQUAMOUS EPITHELIAL CELL UR AU 0 /HPF (0-6); UROBILINOGEN, URINE AUTO 0.2 mg/dL (0.0-2.0); WBC, URINE AUTO 2 /HPF (0-3)
[2024-07-02 15:31] LABS: ALBUMIN 2.8 G/DL (3.2-5.2); BILIRUBIN,DIRECT 0.1 MG/DL (<0.4); BILIRUBIN,TOTAL 0.4 MG/DL (0.3-1.2); CALCIUM LEVEL 8.4 MG/DL (8.3-10.6); CREATININE FOR GFR 2.6 MG/DL (0.55-1.30); GLOMERULAR FILTRATION RATE 18.9 (>32); POTASSIUM SERUM 5.4 MMOL/L (3.5-5.1); TOTAL PROTEIN 5.8 G/DL (5.7-8.2)
[2024-07-02] MEDS: NS (Normal Saline) 0.9% 1,000 ML IV SCH (16:30)
[2024-07-02 17:13] LABS: DIGOXIN LEVEL 2.2 NG/ML (0.8-2.0)
[2024-07-02] MEDS: NS 500 ML IV ONE (18:01)
[2024-07-02] MEDS ORDERED: MOM 30ML SUSPENSION UDC PO PRN (18:35)
[2024-07-02] MEDS ORDERED: MAALOX 30 ML SUSP *UDC PO PRN (18:35)
[2024-07-02] MEDS ORDERED: CARV25TA PO (19:01)
[2024-07-02] MEDS ORDERED: BUSP10TA PO (19:01)
[2024-07-02] MEDS ORDERED: FURO20TA2 PO (19:01)
[2024-07-02] MEDS ORDERED: HOME MED LIST COMPLETE! XX SCH (19:05)
[2024-07-02] MEDS: DEXTROSE 50% 50ML SYRINGE IV STA (19:05)
[2024-07-02] MEDS: HumuLIN R (REGULAR) INSULIN (NovoLIN R) **100U/ML** PER UNIT IV STA (19:06)
[2024-07-02] MEDS: SOD POLYSTYRENE SULFONATE SUSP 15GM 60ML UD PO ONE (19:06)
[2024-07-02] MEDS ORDERED: ALBUTEROL SULFATE 2.5MG/0.5ML INH NEB SOLN INH PRN (19:15)
[2024-07-02] MEDS ORDERED: ALBUTEROL 90 MCG/ACT 8GM HFA INHALER INH PRN (19:15)
[2024-07-02 20:08] LABS: CALCIUM LEVEL 7.4 MG/DL (8.3-10.6); CREATININE FOR GFR 2.35 MG/DL (0.55-1.30); GLOMERULAR FILTRATION RATE 21.2 (>32); POTASSIUM SERUM 5.2 MMOL/L (3.5-5.1)
[2024-07-02] MEDS: HEPARIN SOD (PORCINE) 5000UNITS/ML 1ML VIAL/SYRINGE SC SCH (21:30)
[2024-07-02] MEDS: PANTOPRAZOLE 40MG TAB (PROTONIX) PO SCH (21:30)
[2024-07-02] MEDS: busPIRone 10 MG TAB PO SCH (21:31)
[2024-07-03] MEDS: LEVOTHYROXINE 75MCG TABLET (0.075MG) PO SCH (06:10)
[2024-07-03 06:51] LABS: CALCIUM LEVEL 8.1 MG/DL (8.3-10.6); CREATININE FOR GFR 2.49 MG/DL (0.55-1.30); GLOMERULAR FILTRATION RATE 19.8 (>32); MAGNESIUM LEVEL 1.2 MG/DL (1.8-2.4)
[2024-07-03] MEDS: MAG SULF 1GM/100ML (MAG RUN) 1 GM in IV 1 EA IV SCH (07:00)
[2024-07-03] MEDS: TIOTROPIUM INHALER/CAPSULE (SPIRIVA) INH SCH (08:19)
[2024-07-03 12:21] VITALS: BP 124/49; TEMP 97.7; O2SAT 96
[2024-07-03] MEDS: ACETAMINOPHEN 325 MG TAB PO PRN (17:22)
[2024-07-03 20:47] VITALS: BP 103/45; TEMP 97.7; O2SAT 97
[2024-07-04 05:43] VITALS: BP 126/46; TEMP 97.7; O2SAT 98
[2024-07-04 10:40] LABS: CALCIUM LEVEL 8.4 MG/DL (8.3-10.6); CREATININE FOR GFR 1.66 MG/DL (0.55-1.30); GLOMERULAR FILTRATION RATE 31.6 (>32); MAGNESIUM LEVEL 2.7 MG/DL (1.8-2.4); POTASSIUM SERUM 4.8 MMOL/L (3.5-5.1)
[2024-07-04 12:00] VITALS: BP 174/53; TEMP 98.4; O2SAT 98
[2024-07-04 12:43] VITALS: BP 173/103
[2024-07-04] MEDS: CARVedilol 12.5 MG TAB PO SCH (12:43)
[2024-07-04] MEDS ORDERED: CARV25TA PO (12:55)
[2024-07-04 13:28] VITALS: BP 168/56
[2024-07-04 14:44] VITALS: BP 166/49; O2SAT 98
[2024-07-04 15:44] VITALS: BP 145/40; O2SAT 98
== END 2024-07-04 16:31 | disposition home health service (06) | DRG 683 ==
LOC: M ED 13:39 → EDBD 13:39 → M ED INP 18:34 → M MSPAV 07-03 12:21
PROVIDERS: ADMIT Student in an Organized Health Care Education/Training Program; ATTEND Student in an Organized Health Care Education/Training Program
DX: N17.9 Acute kidney failure, unspecified (principal); E46 Unspecified protein-calorie malnutrition; Z68.42 Body mass index [BMI] 45.0-49.9, adult; Z66 Do not resuscitate; I48.91 Unspecified atrial fibrillation; E03.9 Hypothyroidism, unspecified; J44.9 Chronic obstructive pulmonary disease, unspecified; I12.9 Hypertensive chronic kidney disease with stage 1 through stage 4 chronic kidney disease, or unspecified chronic kidney disease; F17.200 Nicotine dependence, unspecified, uncomplicated; N18.9 Chronic kidney disease, unspecified; E86.0 Dehydration; D64.9 Anemia, unspecified; E78.5 Hyperlipidemia, unspecified; K21.9 Gastro-esophageal reflux disease without esophagitis; E87.5 Hyperkalemia; I95.1 Orthostatic hypotension; M81.0 Age-related osteoporosis without current pathological fracture; M48.00 Spinal stenosis, site unspecified; Z95.2 Presence of prosthetic heart valve; Z90.79 Acquired absence of other genital organ(s); Z90.49 Acquired absence of other specified parts of digestive tract; Z79.890 Hormone replacement therapy; Z79.899 Other long term (current) drug therapy; Z88.5 Allergy status to narcotic agent; Z85.038 Personal history of other malignant neoplasm of large intestine; Z85.118 Personal history of other malignant neoplasm of bronchus and lung; Z90.2 Acquired absence of lung [part of]

== ENCOUNTER → 2024-07-08 | Outpatient (CLI) | payer MEDICARE ==
[~2024-07-08] MED LIST changes: +BUSP10TA PO; +CARV25TA PO; +FURO20TA2 PO
== END ==
LOC: M ADAMS 09:48
PROVIDERS: ATTEND Family Medicine
DX: M79.671 Pain in right foot (principal)

== ENCOUNTER → 2024-07-08 | Outpatient (REF) | payer MEDICARE ==
[2024-07-08 13:51] LABS: HEMATOCRIT 38.4 % (36.0-47.0); HEMOGLOBIN 11.8 g/dl (12.0-15.5); MEAN CORPUSCULAR HEMOGLOBIN 27.5 pg (27.0-33.0); MEAN CORPUSCULAR HGB CONC 30.7 g/dl (32.0-36.5); MEAN CORPUSCULAR VOLUME 89.5 fl (80.0-96.0); PLATELET COUNT, AUTOMATED 145 10^3/uL (150-450); RED BLOOD COUNT 4.29 10^6/uL (4.00-5.40); WHITE BLOOD COUNT 7.6 10^3/uL (4.0-10.0)
[2024-07-08 13:53] LABS: DIGOXIN LEVEL 1.5 NG/ML (0.8-2.0)
[2024-07-08 13:59] LABS: CALCIUM LEVEL 10.1 MG/DL (8.3-10.6); CREATININE FOR GFR 1.51 MG/DL (0.55-1.30); GLOMERULAR FILTRATION RATE 35.3 (>32); MAGNESIUM LEVEL 1.3 MG/DL (1.8-2.4)
== END ==
LOC: M SFHCADAM 09:29
PROVIDERS: ATTEND Family Medicine
DX: N17.9 Acute kidney failure, unspecified (principal); I48.91 Unspecified atrial fibrillation; D64.9 Anemia, unspecified

== ENCOUNTER → 2024-07-15 | Outpatient (REF) | payer MEDICARE ==
[2024-07-15 18:20] LABS: HEMATOCRIT 39.5 % (36.0-47.0); HEMOGLOBIN 12.4 g/dl (12.0-15.5); MEAN CORPUSCULAR HEMOGLOBIN 27.7 pg (27.0-33.0); MEAN CORPUSCULAR HGB CONC 31.4 g/dl (32.0-36.5); MEAN CORPUSCULAR VOLUME 88.2 fl (80.0-96.0); PLATELET COUNT, AUTOMATED 223 10^3/uL (150-450); RED BLOOD COUNT 4.48 10^6/uL (4.00-5.40); WHITE BLOOD COUNT 8.3 10^3/uL (4.0-10.0)
[2024-07-15 18:43] LABS: CREATININE FOR GFR 1.44 MG/DL (0.55-1.30); GLOMERULAR FILTRATION RATE 37.3 (>32); POTASSIUM SERUM 5.4 MMOL/L (3.5-5.1)
== END ==
LOC: M SFHCADAM 17:07
PROVIDERS: ATTEND Family Medicine
DX: D64.9 Anemia, unspecified (principal); I11.9 Hypertensive heart disease without heart failure

== ENCOUNTER → 2024-07-28 | Outpatient (CLI) | payer MEDICARE | LOC: M RAD 11:14 | PROVIDERS: ATTEND General Practice | DX: C34.2 Malignant neoplasm of middle lobe, bronchus or lung (principal); I70.0 Atherosclerosis of aorta; I25.10 Atherosclerotic heart disease of native coronary artery without angina pectoris; K44.9 Diaphragmatic hernia without obstruction or gangrene; R91.8 Other nonspecific abnormal finding of lung field ==

== ENCOUNTER → 2024-07-29 | Outpatient (REF) | payer MEDICARE ==
[2024-07-29 10:14] LABS: HEMATOCRIT 36.8 % (36.0-47.0); HEMOGLOBIN 11.7 g/dl (12.0-15.5); MEAN CORPUSCULAR HEMOGLOBIN 27.8 pg (27.0-33.0); MEAN CORPUSCULAR HGB CONC 31.8 g/dl (32.0-36.5); MEAN CORPUSCULAR VOLUME 87.4 fl (80.0-96.0); PLATELET COUNT, AUTOMATED 154 10^3/uL (150-450); RED BLOOD COUNT 4.21 10^6/uL (4.00-5.40); WHITE BLOOD COUNT 9.3 10^3/uL (4.0-10.0)
[2024-07-29 10:43] LABS: CALCIUM LEVEL 9.5 MG/DL (8.3-10.6); CREATININE FOR GFR 1.37 MG/DL (0.55-1.30); DIGOXIN LEVEL 1.4 NG/ML (0.8-2.0); GLOMERULAR FILTRATION RATE 39.5 (>32); MAGNESIUM LEVEL 1.9 MG/DL (1.8-2.4); POTASSIUM SERUM 3.7 MMOL/L (3.5-5.1)
== END ==
LOC: M SFHCADAM 09:08
PROVIDERS: ATTEND Family Medicine
DX: N17.9 Acute kidney failure, unspecified (principal); I48.91 Unspecified atrial fibrillation; D50.0 Iron deficiency anemia secondary to blood loss (chronic); E83.42 Hypomagnesemia

== ENCOUNTER → 2024-08-04 | Outpatient (CLI) | payer MEDICARE | LOC: M ONCR 14:59 | PROVIDERS: ATTEND General Practice | DX: C34.2 Malignant neoplasm of middle lobe, bronchus or lung (principal); C18.8 Malignant neoplasm of overlapping sites of colon; Z85.841 Personal history of malignant neoplasm of brain; Z71.2 Person consulting for explanation of examination or test findings; Z92.21 Personal history of antineoplastic chemotherapy; Z92.3 Personal history of irradiation; Z90.2 Acquired absence of lung [part of]; Z87.891 Personal history of nicotine dependence; Z88.5 Allergy status to narcotic agent; Z79.890 Hormone replacement therapy; Z79.899 Other long term (current) drug therapy ==

== ENCOUNTER → 2024-08-12 | Outpatient (REF) | payer MEDICARE ==
[2024-08-12 13:48] LABS: BASO # 0.1 10^3/uL (0.0-0.2); BASO % 0.8 % (0.0-1.0); EOS # 0.5 10^3/uL (0.0-0.5); EOS % 5.5 % (0.0-3.0); HEMATOCRIT 38.6 % (36.0-47.0); HEMOGLOBIN 12.1 g/dl (12.0-15.5); LYMPH # 2.1 10^3/uL (1.5-5.0); LYMPH % 23.3 % (24.0-44.0); MEAN CORPUSCULAR HEMOGLOBIN 27.4 pg (27.0-33.0); MEAN CORPUSCULAR HGB CONC 31.3 g/dl (32.0-36.5); MEAN CORPUSCULAR VOLUME 87.5 fl (80.0-96.0); MONO # 1.1 10^3/uL (0.0-0.8); MONO % 12.1 % (2.0-8.0); NEUTROPHILS # 5.1 10^3/uL (1.5-8.5); NEUTROPHILS % 57.6 % (36.0-66.0); PLATELET COUNT, AUTOMATED 172 10^3/uL (150-450); RED BLOOD COUNT 4.41 10^6/uL (4.00-5.40); WHITE BLOOD COUNT 8.9 10^3/uL (4.0-10.0)
[2024-08-12 14:12] LABS: CALCIUM LEVEL 9.8 MG/DL (8.3-10.6); CREATININE FOR GFR 1.28 MG/DL (0.55-1.30); DIGOXIN LEVEL 1.6 NG/ML (0.8-2.0); GLOMERULAR FILTRATION RATE 42.7 (>32); MAGNESIUM LEVEL 2.1 MG/DL (1.8-2.4); POTASSIUM SERUM 3.7 MMOL/L (3.5-5.1)
== END ==
LOC: M SFHCADAM 10:36
PROVIDERS: ATTEND Family Medicine
DX: I48.91 Unspecified atrial fibrillation (principal); N17.9 Acute kidney failure, unspecified; E83.42 Hypomagnesemia

== ENCOUNTER → 2024-08-24 | Outpatient (REF) | payer MEDICARE ==
[2024-08-24 14:29] LABS: CALCIUM LEVEL 9.6 MG/DL (8.3-10.6); CREATININE FOR GFR 1.16 MG/DL (0.55-1.30); GLOMERULAR FILTRATION RATE 47.7 (>32); MAGNESIUM LEVEL 2.1 MG/DL (1.8-2.4); POTASSIUM SERUM 3.9 MMOL/L (3.5-5.1)
== END ==
LOC: M SFHCADAM 09:15
PROVIDERS: ATTEND Family Medicine
DX: N17.9 Acute kidney failure, unspecified (principal); E83.42 Hypomagnesemia

== ENCOUNTER → 2024-09-01 | Outpatient (CLI) | payer MEDICARE | LOC: M WHC 13:37 | PROVIDERS: ATTEND Family Medicine | DX: Z12.31 Encounter for screening mammogram for malignant neoplasm of breast (principal) ==

== ENCOUNTER → 2024-09-04 | Outpatient (REF) | payer MEDICARE ==
[2024-09-04 13:18] LABS: HEMOGLOBIN 11.5 g/dl (12.0-15.5); MEAN CORPUSCULAR HEMOGLOBIN 27.7 pg (27.0-33.0); MEAN CORPUSCULAR HGB CONC 30.3 g/dl (32.0-36.5); MEAN CORPUSCULAR VOLUME 91.6 fl (80.0-96.0); PLATELET COUNT, AUTOMATED 175 10^3/uL (150-450); RED BLOOD COUNT 4.15 10^6/uL (4.00-5.40); WHITE BLOOD COUNT 9.3 10^3/uL (4.0-10.0)
== END ==
LOC: M SFHCADAM 09:05
PROVIDERS: ATTEND Family Medicine
DX: D50.0 Iron deficiency anemia secondary to blood loss (chronic) (principal)

== ENCOUNTER → 2024-10-02 | Outpatient (REF) | payer MEDICARE ==
[~2024-10-02] MED LIST changes: +AMLO-751 PO; -AMLO10TA PO; -PRED50TA PO; +PRED50TA57 PO
[2024-10-02 13:53] LABS: HEMOGLOBIN 10.7 g/dl (12.0-15.5); MEAN CORPUSCULAR HEMOGLOBIN 28.4 pg (27.0-33.0); MEAN CORPUSCULAR HGB CONC 30.6 g/dl (32.0-36.5); MEAN CORPUSCULAR VOLUME 92.8 fl (80.0-96.0); PLATELET COUNT, AUTOMATED 167 10^3/uL (150-450); RED BLOOD COUNT 3.77 10^6/uL (4.00-5.40); WHITE BLOOD COUNT 9.5 10^3/uL (4.0-10.0)
[2024-10-02 13:54] LABS: CALCIUM LEVEL 10.3 MG/DL (8.3-10.6); CREATININE FOR GFR 1.15 MG/DL (0.55-1.30); GLOMERULAR FILTRATION RATE 48.2 (>32); POTASSIUM SERUM 4.2 MMOL/L (3.5-5.1)
[2024-10-02 14:02] LABS: FERRITIN 131.1 NG/ML (7.3-270.7)
== END ==
LOC: M SFHCADAM 09:06
PROVIDERS: ATTEND Family Medicine
DX: D50.0 Iron deficiency anemia secondary to blood loss (chronic) (principal); E83.42 Hypomagnesemia

== ENCOUNTER → 2024-11-19 | Outpatient (REF) | payer MEDICARE ==
[2024-11-19 13:54] LABS: APPEARANCE, URINE HAZY (CLEAR); BACTERIA, URINE AUTO 1+ (NEGATIVE); BILIRUBIN, URINE AUTO NEGATIVE (NEGATIVE); BLOOD, URINE BLOOD NEGATIVE (NEGATIVE); GLUCOSE, URINE (UA) AUTO NEGATIVE (NEGATIVE); KETONE, URINE AUTO NEGATIVE (NEGATIVE); LEUKOCYTE ESTERASE, URINE AUTO NEGATIVE (NEGATIVE); MUCUS, URINE SMALL (NEGATIVE); NITRITE, URINE AUTO NEGATIVE (NEGATIVE); PROTEIN, URINE AUTO 1+ mg/dL (NEGATIVE); RBC, URINE AUTO 0 /HPF (0-3); SPECIFIC GRAVITY URINE AUTO 1.008 (1.002-1.035); SQUAMOUS EPITHELIAL CELL UR AU 11 /HPF (0-6); UROBILINOGEN, URINE AUTO 0.2 mg/dL (0.0-2.0); WBC, URINE AUTO 1 /HPF (0-3)
== END ==
LOC: M SFHCADAM 09:29
PROVIDERS: ATTEND Family Medicine
DX: N17.9 Acute kidney failure, unspecified (principal); Z79.899 Other long term (current) drug therapy

== ENCOUNTER → 2024-12-09 | Outpatient (CLI) | payer MEDICARE | LOC: M PLAIMG 12:39 | PROVIDERS: ATTEND Internal Medicine Pulmonary Disease | DX: R91.8 Other nonspecific abnormal finding of lung field (principal) ==

== ENCOUNTER 2025-01-01 05:18 | Inpatient (IN) | payer MEDICARE ==
[~2025-01-01] VITALS: Ht 152.4 cm; Wt 48.7 kg
[2025-01-01] MEDS: IPRATROPIUM 0.5 MG/ALBUTEROL 2.5 MG INH SOL UD 3 ML NEB ONE ×2 (06:08→08:31)
[2025-01-01 06:17] LABS: VENOUS BASE EXCESS 8.5 (-2.0-2.0); VENOUS HCO3 37.6 MMOL/L (23.0-27.0); VENOUS O2 SATURATION 51.2 % (60.0-80.0); VENOUS PARTIAL PRESSURE CO2 79.5 mmHg (38.0-50.0); VENOUS PARTIAL PRESSURE O2 28.9 mmHg (30.0-50.0); VENOUS PH 7.293 UNITS (7.330-7.430); VENOUS STANDARD HCO3 31.3 MMOL/L; VENOUS TOTAL CO2 40.1 MMOL/L (24.0-28.0)
[2025-01-01 06:22] LABS: BASO # 0.0 10^3/uL (0.0-0.2); BASO % 0.3 % (0.0-1.0); EOS # 0.3 10^3/uL (0.0-0.5); EOS % 2.8 % (0.0-3.0); LYMPH # 1.6 10^3/uL (1.5-5.0); LYMPH % 16.0 % (24.0-44.0); MONO # 1.1 10^3/uL (0.0-0.8); MONO % 11.1 % (2.0-8.0); NEUTROPHILS # 7.1 10^3/uL (1.5-8.5); NEUTROPHILS % 69.5 % (36.0-66.0); PLATELET COUNT, AUTOMATED 149 10^3/uL (150-450)
[2025-01-01] MEDS: hydrALAZINE 20 MG/ML 1 ML VIAL IV ONE (06:29)
[2025-01-01 06:53] LABS: CK-MB VALUE MASS 2.6 NG/ML (<3.6)
[2025-01-01 06:55] LABS: ALT/SGPT 9.0 U/L (7.0-40); AST/SGOT 15.0 U/L (<34); CALCIUM LEVEL 10.1 MG/DL (8.3-10.6); CARBON DIOXIDE LEVEL 39.0 MMOL/L (20-31); CHLORIDE LEVEL 97.0 MMOL/L (98-107); CPK CREATINE PHOSPHOKINASE 34.0 U/L (34-145); CREATININE FOR GFR 0.99 MG/DL (0.55-1.30); GLOMERULAR FILTRATION RATE 57.6 (>32); MB/CK RELATIVE INDEX 7.64 (< OR =4); POTASSIUM SERUM 4.1 MMOL/L (3.5-5.1); SODIUM LEVEL 142.0 MMOL/L (136-145)
[2025-01-01 07:11] LABS: ABG BASE EXCESS 7.6 (-2.0-2.0); ABG HCO3 32.9 MMOL/L (22.0-26.0); ABG O2 SATURATION 96.0 % (95.0-99.0); ABG PARTIAL PRESSURE CO2 50.3 mmHg (35.0-45.0); ABG PARTIAL PRESSURE O2 76.0 mmHg (75.0-100.0); ABG STANDARD HCO3 31.3 MMOL/L. (22.0-26.0); ABG TOTAL CO2 34.5 MMOL/L (23.0-31.0); ABG pH (ARTERIAL) 7.434 UNITS (7.350-7.450)
[2025-01-01 07:26] LABS: DIGOXIN LEVEL 1.7 NG/ML (0.8-2.0)
[2025-01-01 08:18] LABS: CPK CREATINE PHOSPHOKINASE 34.0 U/L (34-145)
[2025-01-01] MEDS: FUROSEMIDE 20 MG/2 ML VIAL IV STA (08:20)
[2025-01-01 08:24] LABS: CK-MB VALUE MASS 1.8 NG/ML (<3.6); MAGNESIUM LEVEL 2.0 MG/DL (1.8-2.4); MB/CK RELATIVE INDEX 5.29 (< OR =4)
[2025-01-01] MEDS: ALBUTEROL SULFATE 2.5 MG/0.5 ML INH CONCENTRATE NEB SOLN INH ONE (08:30)
[2025-01-01] MEDS ORDERED: ISOVUE-370 76% 100 ML VIAL As Ordered ONE (08:46)
[2025-01-01] MEDS ORDERED: VENTAER INH (09:57)
[2025-01-01] MEDS ORDERED: BUSP15TA48 PO (09:58)
[2025-01-01] MEDS ORDERED: MAGN400T35 PO (10:05)
[2025-01-01] MEDS ORDERED: HYDR25TA87 PO (10:09)
[2025-01-01] MEDS ORDERED: HOME MED LIST COMPLETE! XX SCH (10:10)
[2025-01-01] MEDS ORDERED: **hydrALAZINE HCL** 25 MG TAB PO PRN (15:10)
[2025-01-01] MEDS: PANTOPRAZOLE 40MG TAB PO SCH (15:28)
[2025-01-01] MEDS: NICOTINE 21 MG/24 HR 1 EA TRANSDERMAL TD SCH (15:29)
[2025-01-01 15:56] VITALS: BP 180/80; TEMP 98.1; O2SAT 95
[2025-01-01] MEDS: NYSTATIN 500,000 UNITS/5 ML SUSP UDC SS SCH (17:03)
[2025-01-01] MEDS: FLUCONAZOLE 100 MG TAB PO SCH (17:04)
[2025-01-01] MEDS: TIOTROPIUM BROM 2.5MCG/ACTUATION 4GM INH INH SCH (20:00)
[2025-01-01 20:04] VITALS: BP 159/53; TEMP 97.7; O2SAT 99
[2025-01-01] MEDS: busPIRone 5 MG TAB PO SCH (20:09)
[2025-01-01] MEDS: DIGOXIN 0.125 MG TAB PO SCH (20:10)
[2025-01-01] MEDS: IPRATROPIUM 0.5 MG/ALBUTEROL 2.5 MG INH SOL UD 3 ML NEB SCH (20:38)
[2025-01-01] MEDS: SODIUM CHLORIDE HYPERTONIC 3% 4ML NEB SOL INH SCH (20:39)
[2025-01-02] VITALS (13 sets, daily range): BP systolic 140–180; BP diastolic 58–79; TEMP 97.9–98.3; O2SAT 85–99
[2025-01-02] MEDS: ACETAMINOPHEN 325 MG TAB PO PRN (04:44)
[2025-01-02] MEDS: LEVOTHYROXINE 75 MCG TABLET (0.075 MG) PO SCH (05:44)
[2025-01-02 06:42] LABS: PLATELET COUNT, AUTOMATED 135 10^3/uL (150-450)
[2025-01-02 07:35] LABS: CALCIUM LEVEL 9.5 MG/DL (8.3-10.6); CARBON DIOXIDE LEVEL 38.0 MMOL/L (20-31); CHLORIDE LEVEL 99.0 MMOL/L (98-107); CREATININE FOR GFR 1.11 MG/DL (0.55-1.30); GLOMERULAR FILTRATION RATE 50.3 (>32); POTASSIUM SERUM 4.0 MMOL/L (3.5-5.1); SODIUM LEVEL 141.0 MMOL/L (136-145)
[2025-01-02] MEDS: ENOXAPARIN 30 MG/0.3 ML SYRINGE (J1650 PER 10MG) SC SCH (09:00)
[2025-01-02] MEDS: predniSONE 20 MG TAB PO SCH (09:47)
[2025-01-02] MEDS: FUROSEMIDE PO SCH (09:52)
[2025-01-02] MEDS ORDERED: METOPROLOL TART 25 MG TABLET PO ONE (22:00)
[2025-01-03] VITALS (39 sets, daily range): BP systolic 110–198; BP diastolic 53–95; TEMP 97.1–98.5; O2SAT 84–100
[2025-01-03] MEDS: ALBUTEROL SULFATE 2.5 MG/0.5 ML INH CONCENTRATE NEB SOLN NEB PRN (02:22)
[2025-01-03 05:16] LABS: BASO # 0.0 10^3/uL (0.0-0.2); BASO % 0.1 % (0.0-1.0); EOS # 0.0 10^3/uL (0.0-0.5); EOS % 0.1 % (0.0-3.0); LYMPH # 1.6 10^3/uL (1.5-5.0); LYMPH % 8.7 % (24.0-44.0); MONO # 2.1 10^3/uL (0.0-0.8); MONO % 11.7 % (2.0-8.0); NEUTROPHILS # 14.3 10^3/uL (1.5-8.5); NEUTROPHILS % 78.6 % (36.0-66.0); PLATELET COUNT, AUTOMATED 160 10^3/uL (150-450)
[2025-01-03 05:17] LABS: ABG BASE EXCESS 5.1 (-2.0-2.0); ABG HCO3 36.3 MMOL/L (22.0-26.0); ABG O2 SATURATION 96.3 % (95.0-99.0); ABG PARTIAL PRESSURE O2 103.4 mmHg (75.0-100.0); ABG STANDARD HCO3 29.1 MMOL/L. (22.0-26.0); ABG TOTAL CO2 39.4 MMOL/L (23.0-31.0)
[2025-01-03 05:18] LABS: ABG pH (ARTERIAL) 7.162 UNITS (7.350-7.450)
[2025-01-03 05:19] LABS: ABG PARTIAL PRESSURE CO2 103.6 mmHg (35.0-45.0)
[2025-01-03 05:41] LABS: ALT/SGPT 13 U/L (7.0-40); AST/SGOT 35 U/L (<34); C REACTIVE PROTEIN QUANTITATIV < 0.50 MG/DL (<1.0)
[2025-01-03 05:46] LABS: CALCIUM LEVEL 9.4 MG/DL (8.3-10.6); CARBON DIOXIDE LEVEL 36 MMOL/L (20-31); CHLORIDE LEVEL 95 MMOL/L (98-107); CREATININE FOR GFR 1.30 MG/DL (0.55-1.30); GLOMERULAR FILTRATION RATE 41.6 (>32); MAGNESIUM LEVEL 2.3 MG/DL (1.8-2.4); PHOSPHORUS LEVEL 5.4 MG/DL (2.4-5.1); POTASSIUM SERUM 4.8 MMOL/L (3.5-5.1); SODIUM LEVEL 137 MMOL/L (136-145)
[2025-01-03] MEDS: hydrALAZINE 20 MG/ML 1 ML VIAL IV STA (06:02)
[2025-01-03] MEDS: FUROSEMIDE 20 MG/2 ML VIAL IV ONE (09:51)
[2025-01-03] MEDS: HALOPERIDOL LACTATE 5 MG/ML VIAL IV STA (10:00)
[2025-01-03 10:23] LABS: ABG BASE EXCESS 9.9 (-2.0-2.0); ABG HCO3 36.2 MMOL/L (22.0-26.0); ABG O2 SATURATION 98.5 % (95.0-99.0); ABG PARTIAL PRESSURE CO2 59.0 mmHg (35.0-45.0); ABG PARTIAL PRESSURE O2 112.0 mmHg (75.0-100.0); ABG STANDARD HCO3 33.7 MMOL/L. (22.0-26.0); ABG TOTAL CO2 38.0 MMOL/L (23.0-31.0); ABG pH (ARTERIAL) 7.406 UNITS (7.350-7.450)
[2025-01-03] MEDS: IPRATROPIUM 0.5 MG/ALBUTEROL 2.5 MG INH SOL UD 3 ML NEB SCH ×2 (11:24→15:00)
[2025-01-03] MEDS: SODIUM CHLORIDE HYPERTONIC 3% 4ML NEB SOL INH SCH ×2 (15:00→19:26)
[2025-01-03 15:42] LABS: ABG BASE EXCESS 12.8 (-2.0-2.0); ABG HCO3 40.4 MMOL/L (22.0-26.0); ABG O2 SATURATION 93.8 % (95.0-99.0); ABG PARTIAL PRESSURE O2 67.7 mmHg (75.0-100.0); ABG STANDARD HCO3 36.5 MMOL/L. (22.0-26.0); ABG TOTAL CO2 42.5 MMOL/L (23.0-31.0); ABG pH (ARTERIAL) 7.380 UNITS (7.350-7.450)
[2025-01-03 15:44] LABS: ABG PARTIAL PRESSURE CO2 69.8 mmHg (35.0-45.0)
[2025-01-04] VITALS (16 sets, daily range): BP systolic 160–188; BP diastolic 70–79; TEMP 97.3–98.7; O2SAT 86–100
[2025-01-04 05:02] LABS: BASO # 0.0 10^3/uL (0.0-0.2); BASO % 0.0 % (0.0-1.0); EOS # 0.0 10^3/uL (0.0-0.5); EOS % 0.0 % (0.0-3.0); LYMPH # 0.6 10^3/uL (1.5-5.0); LYMPH % 7.4 % (24.0-44.0); MONO # 0.6 10^3/uL (0.0-0.8); MONO % 6.9 % (2.0-8.0); NEUTROPHILS # 7.1 10^3/uL (1.5-8.5); NEUTROPHILS % 85.2 % (36.0-66.0); PLATELET COUNT, AUTOMATED 118 10^3/uL (150-450)
[2025-01-04 05:38] LABS: CALCIUM LEVEL 8.8 MG/DL (8.3-10.6); CARBON DIOXIDE LEVEL 37.0 MMOL/L (20-31); CHLORIDE LEVEL 98.0 MMOL/L (98-107); CREATININE FOR GFR 1.23 MG/DL (0.55-1.30); GLOMERULAR FILTRATION RATE 44.4 (>32); POTASSIUM SERUM 4.6 MMOL/L (3.5-5.1); SODIUM LEVEL 142.0 MMOL/L (136-145)
[2025-01-04 05:46] LABS: ABG BASE EXCESS 9.6 (-2.0-2.0); ABG HCO3 35.8 MMOL/L (22.0-26.0); ABG O2 SATURATION 99.3 % (95.0-99.0); ABG PARTIAL PRESSURE CO2 58.3 mmHg (35.0-45.0); ABG PARTIAL PRESSURE O2 294.3 mmHg (75.0-100.0); ABG STANDARD HCO3 33.3 MMOL/L. (22.0-26.0); ABG TOTAL CO2 37.6 MMOL/L (23.0-31.0); ABG pH (ARTERIAL) 7.406 UNITS (7.350-7.450)
[2025-01-04] MEDS: SODIUM CHLORIDE HYPERTONIC 3% 4ML NEB SOL INH SCH (11:21)
[2025-01-04] MEDS: IPRATROPIUM 0.5 MG/ALBUTEROL 2.5 MG INH SOL UD 3 ML NEB SCH (11:21)
[2025-01-04] MEDS: **hydrALAZINE HCL** 25 MG TAB PO SCH (13:27)
[2025-01-04] MEDS: hydrALAZINE 20 MG/ML 1 ML VIAL IV PRN (23:41)
[2025-01-05] VITALS (12 sets, daily range): BP systolic 143–190; BP diastolic 66–81; TEMP 97.6–98.3; O2SAT 85–100
[2025-01-05 05:12] LABS: BASO # 0.0 10^3/uL (0.0-0.2); BASO % 0.0 % (0.0-1.0); EOS # 0.0 10^3/uL (0.0-0.5); EOS % 0.1 % (0.0-3.0); LYMPH # 0.7 10^3/uL (1.5-5.0); LYMPH % 8.7 % (24.0-44.0); MONO # 1.2 10^3/uL (0.0-0.8); MONO % 14.4 % (2.0-8.0); NEUTROPHILS # 6.3 10^3/uL (1.5-8.5); NEUTROPHILS % 76.1 % (36.0-66.0); PLATELET COUNT, AUTOMATED 121 10^3/uL (150-450)
[2025-01-05 05:33] LABS: C REACTIVE PROTEIN QUANTITATIV < 0.50 MG/DL (<1.0)
[2025-01-05 05:37] LABS: ALT/SGPT 21 U/L (7.0-40); AST/SGOT 64 U/L (<34); CALCIUM LEVEL 10.1 MG/DL (8.3-10.6); CARBON DIOXIDE LEVEL 35 MMOL/L (20-31); CHLORIDE LEVEL 98 MMOL/L (98-107); CREATININE FOR GFR 1.10 MG/DL (0.55-1.30); GLOMERULAR FILTRATION RATE 50.8 (>32); MAGNESIUM LEVEL 2.2 MG/DL (1.8-2.4); POTASSIUM SERUM 4.2 MMOL/L (3.5-5.1); SODIUM LEVEL 141 MMOL/L (136-145)
[2025-01-05] MEDS: DOCUSATE SODIUM 100 MG CAPSULE PO PRN (09:55)
[2025-01-05] MEDS: amLODIPine 5 MG TAB PO SCH (09:55)
[2025-01-06] VITALS (39 sets, daily range): BP systolic 166–179; BP diastolic 70–78; TEMP 97.2–98.2; O2SAT 83–98
[2025-01-06 05:14] LABS: PLATELET COUNT, AUTOMATED 128 10^3/uL (150-450)
[2025-01-06 05:31] LABS: CALCIUM LEVEL 9.9 MG/DL (8.3-10.6); CARBON DIOXIDE LEVEL 33.0 MMOL/L (20-31); CHLORIDE LEVEL 100.0 MMOL/L (98-107); CREATININE FOR GFR 1.19 MG/DL (0.55-1.30); GLOMERULAR FILTRATION RATE 46.2 (>32); POTASSIUM SERUM 4.7 MMOL/L (3.5-5.1); SODIUM LEVEL 141.0 MMOL/L (136-145)
[2025-01-06] MEDS: CHLORTHALIDONE 12.5 MG PER 1/2 TABLET PO ONE (14:04)
[2025-01-06] MEDS: MIRALAX *UNIT DOSE* 17 GM PACKET PO ONE (18:29)
[2025-01-06] MEDS: guaiFENesin ER TABLET 600 MG TAB PO SCH (20:11)
[2025-01-07] VITALS (26 sets, daily range): BP systolic 156–170; BP diastolic 68–80; TEMP 97.3–98.3; O2SAT 84–97
[2025-01-07 07:50] LABS: PLATELET COUNT, AUTOMATED 152 10^3/uL (150-450)
[2025-01-07 07:53] LABS: VENOUS BASE EXCESS 5.4 (-2.0-2.0); VENOUS HCO3 33.2 MMOL/L (23.0-27.0); VENOUS O2 SATURATION 90.6 % (60.0-80.0); VENOUS PARTIAL PRESSURE CO2 67.0 mmHg (38.0-50.0); VENOUS PARTIAL PRESSURE O2 64.8 mmHg (30.0-50.0); VENOUS PH 7.313 UNITS (7.330-7.430); VENOUS STANDARD HCO3 29.2 MMOL/L; VENOUS TOTAL CO2 35.3 MMOL/L (24.0-28.0)
[2025-01-07 08:21] LABS: CALCIUM LEVEL 10.2 MG/DL (8.3-10.6); CARBON DIOXIDE LEVEL 37.0 MMOL/L (20-31); CHLORIDE LEVEL 97.0 MMOL/L (98-107); CREATININE FOR GFR 1.15 MG/DL (0.55-1.30); GLOMERULAR FILTRATION RATE 48.2 (>32); POTASSIUM SERUM 5.6 MMOL/L (3.5-5.1); SODIUM LEVEL 139.0 MMOL/L (136-145)
[2025-01-07] MEDS: CHLORTHALIDONE 12.5 MG PER 1/2 TABLET PO SCH (08:46)
[2025-01-07] MEDS: predniSONE 20 MG TAB PO SCH (09:26)
[2025-01-07] MEDS: CHLORTHALIDONE 12.5 MG PER 1/2 TABLET PO ONE (12:17)
[2025-01-07] MEDS: PATIROMER SORBITEX CALCIUM 8.4GM POWDER PACKET PO ONE (14:02)
[2025-01-07] MEDS: ALPRAZolam 0.5 MG TAB PO PRN (23:03)
[2025-01-08] VITALS (13 sets, daily range): BP systolic 126–164; BP diastolic 46–81; TEMP 97–98; O2SAT 86–100
[2025-01-08 09:01] LABS: VENOUS BASE EXCESS 8.5 (-2.0-2.0); VENOUS HCO3 35.1 MMOL/L (23.0-27.0); VENOUS O2 SATURATION 98.3 % (60.0-80.0); VENOUS PARTIAL PRESSURE CO2 59.1 mmHg (38.0-50.0); VENOUS PARTIAL PRESSURE O2 127.9 mmHg (30.0-50.0); VENOUS PH 7.391 UNITS (7.330-7.430); VENOUS STANDARD HCO3 32.3 MMOL/L; VENOUS TOTAL CO2 36.9 MMOL/L (24.0-28.0)
[2025-01-08 09:10] LABS: BASO # 0.0 10^3/uL (0.0-0.2); BASO % 0.2 % (0.0-1.0); EOS # 0.1 10^3/uL (0.0-0.5); EOS % 0.7 % (0.0-3.0); LYMPH # 1.6 10^3/uL (1.5-5.0); LYMPH % 13.9 % (24.0-44.0); MONO # 1.5 10^3/uL (0.0-0.8); MONO % 12.5 % (2.0-8.0); NEUTROPHILS # 8.2 10^3/uL (1.5-8.5); NEUTROPHILS % 70.4 % (36.0-66.0); PLATELET COUNT, AUTOMATED 134 10^3/uL (150-450)
[2025-01-08] MEDS: CHLORTHALIDONE 25 MG TAB PO SCH (09:41)
[2025-01-08 09:54] LABS: ALT/SGPT 33.0 U/L (7.0-40); AST/SGOT 24.0 U/L (<34); CALCIUM LEVEL 11.1 MG/DL (8.3-10.6); CARBON DIOXIDE LEVEL 37.0 MMOL/L (20-31); CHLORIDE LEVEL 96.0 MMOL/L (98-107); CREATININE FOR GFR 1.13 MG/DL (0.55-1.30); GLOMERULAR FILTRATION RATE 49.2 (>32); POTASSIUM SERUM 4.7 MMOL/L (3.5-5.1); SODIUM LEVEL 139.0 MMOL/L (136-145)
[2025-01-08] MEDS ORDERED: E-Z-PAQUE 96% w/w SUSP 176 GM BTL As Ordered ONE (11:10)
[2025-01-08] MEDS ORDERED: VARIBAR PUDDING 40% w/v 230ML TUBE As Ordered ONE (11:11)
[2025-01-08] MEDS ORDERED: BARIUM SULFATE 700 MG TABLET As Ordered ONE (11:11)
[2025-01-08] MEDS ORDERED: VARIBAR NECTAR 40% w/v 240ML SUSP BTL As Ordered ONE (11:11)
[2025-01-08] MEDS: MIRALAX *UNIT DOSE* 17 GM PACKET PO PRN (15:20)
[2025-01-09 03:55] VITALS: BP 147/60; TEMP 97; O2SAT 100
[2025-01-09] MEDS: amLODIPine 5 MG TAB PO SCH (10:01)
[2025-01-09] MEDS: **hydrALAZINE HCL** 25 MG TAB PO SCH (10:03)
[2025-01-09 12:00] VITALS: BP 150/52; TEMP 97.5; O2SAT 100
[2025-01-09 19:17] VITALS: BP 138/48; TEMP 97.3; O2SAT 92
[2025-01-10 03:24] VITALS: BP 150/95; TEMP 97.3; O2SAT 96
[2025-01-10 06:16] LABS: VENOUS BASE EXCESS 7.3 (-2.0-2.0); VENOUS HCO3 33.4 MMOL/L (23.0-27.0); VENOUS O2 SATURATION 98.8 % (60.0-80.0); VENOUS PARTIAL PRESSURE CO2 55.4 mmHg (38.0-50.0); VENOUS PARTIAL PRESSURE O2 136.5 mmHg (30.0-50.0); VENOUS PH 7.398 UNITS (7.330-7.430); VENOUS STANDARD HCO3 31.1 MMOL/L; VENOUS TOTAL CO2 35.1 MMOL/L (24.0-28.0)
[2025-01-10 06:21] LABS: BASO # 0.0 10^3/uL (0.0-0.2); BASO % 0.1 % (0.0-1.0); EOS # 0.0 10^3/uL (0.0-0.5); EOS % 0.0 % (0.0-3.0); LYMPH # 1.0 10^3/uL (1.5-5.0); LYMPH % 6.8 % (24.0-44.0); MONO # 1.8 10^3/uL (0.0-0.8); MONO % 11.9 % (2.0-8.0); NEUTROPHILS # 11.5 10^3/uL (1.5-8.5); NEUTROPHILS % 77.2 % (36.0-66.0); PLATELET COUNT, AUTOMATED 142 10^3/uL (150-450)
[2025-01-10 06:45] LABS: CALCIUM LEVEL 10.2 MG/DL (8.3-10.6); CARBON DIOXIDE LEVEL 34.0 MMOL/L (20-31); CHLORIDE LEVEL 96.0 MMOL/L (98-107); CREATININE FOR GFR 1.18 MG/DL (0.55-1.30); GLOMERULAR FILTRATION RATE 46.7 (>32); POTASSIUM SERUM 4.9 MMOL/L (3.5-5.1); SODIUM LEVEL 137.0 MMOL/L (136-145)
[2025-01-10] MEDS: SENNOSIDES/DOCUSATE SODIUM 8.6 MG/50MG TAB PO SCH (09:11)
[2025-01-10] MEDS: predniSONE 10 MG TAB PO SCH (09:12)
[2025-01-10] MEDS: MIRALAX *UNIT DOSE* 17 GM PACKET PO SCH (09:13)
[2025-01-10] MEDS: BISACODYL 10 MG SUPP PR SCH (10:20)
[2025-01-10 12:00] VITALS: BP 153/58; TEMP 97.7; O2SAT 92
[2025-01-10 20:35] VITALS: BP 135/45; TEMP 97.8; O2SAT 92
[2025-01-11 04:20] VITALS: O2SAT 96
[2025-01-11 04:24] VITALS: BP 159/60; TEMP 97; O2SAT 91
[2025-01-11 05:46] VITALS: O2SAT 88
[2025-01-11 05:47] VITALS: O2SAT 98
[2025-01-11 06:57] LABS: VENOUS BASE EXCESS 6.0 (-2.0-2.0); VENOUS HCO3 31.8 MMOL/L (23.0-27.0); VENOUS O2 SATURATION 99.1 % (60.0-80.0); VENOUS PARTIAL PRESSURE CO2 52.3 mmHg (38.0-50.0); VENOUS PARTIAL PRESSURE O2 148.1 mmHg (30.0-50.0); VENOUS PH 7.402 UNITS (7.330-7.430); VENOUS STANDARD HCO3 29.9 MMOL/L; VENOUS TOTAL CO2 33.4 MMOL/L (24.0-28.0)
[2025-01-11 07:20] LABS: BASO # 0.0 10^3/uL (0.0-0.2); BASO % 0.2 % (0.0-1.0); EOS # 0.0 10^3/uL (0.0-0.5); EOS % 0.2 % (0.0-3.0); LYMPH # 1.6 10^3/uL (1.5-5.0); LYMPH % 10.9 % (24.0-44.0); MONO # 1.9 10^3/uL (0.0-0.8); MONO % 12.7 % (2.0-8.0); NEUTROPHILS # 10.6 10^3/uL (1.5-8.5); NEUTROPHILS % 71.0 % (36.0-66.0); PLATELET COUNT, AUTOMATED 135 10^3/uL (150-450)
[2025-01-11 08:15] LABS: CALCIUM LEVEL 10.4 MG/DL (8.3-10.6); CARBON DIOXIDE LEVEL 36.0 MMOL/L (20-31); CHLORIDE LEVEL 96.0 MMOL/L (98-107); CREATININE FOR GFR 1.36 MG/DL (0.55-1.30); GLOMERULAR FILTRATION RATE 39.4 (>32); POTASSIUM SERUM 5.4 MMOL/L (3.5-5.1); SODIUM LEVEL 139.0 MMOL/L (136-145)
[2025-01-11 12:00] VITALS: BP 123/40; TEMP 97.3
[2025-01-11 19:39] VITALS: BP 142/46; TEMP 97.5; O2SAT 92
[2025-01-12 04:40] VITALS: BP 160/59; TEMP 97; O2SAT 96
[2025-01-12 06:30] LABS: VENOUS BASE EXCESS 9.1 (-2.0-2.0); VENOUS HCO3 34.8 MMOL/L (23.0-27.0); VENOUS O2 SATURATION 98.3 % (60.0-80.0); VENOUS PARTIAL PRESSURE CO2 53.1 mmHg (38.0-50.0); VENOUS PARTIAL PRESSURE O2 108.2 mmHg (30.0-50.0); VENOUS PH 7.434 UNITS (7.330-7.430); VENOUS STANDARD HCO3 32.8 MMOL/L; VENOUS TOTAL CO2 36.4 MMOL/L (24.0-28.0)
[2025-01-12 06:45] LABS: BASO # 0.1 10^3/uL (0.0-0.2); BASO % 0.3 % (0.0-1.0); EOS # 0.0 10^3/uL (0.0-0.5); EOS % 0.1 % (0.0-3.0); LYMPH # 1.8 10^3/uL (1.5-5.0); LYMPH % 10.3 % (24.0-44.0); MONO # 2.1 10^3/uL (0.0-0.8); MONO % 11.7 % (2.0-8.0); NEUTROPHILS # 13.0 10^3/uL (1.5-8.5); NEUTROPHILS % 72.6 % (36.0-66.0); PLATELET COUNT, AUTOMATED 157 10^3/uL (150-450)
[2025-01-12 07:15] LABS: CALCIUM LEVEL 10.6 MG/DL (8.3-10.6); CARBON DIOXIDE LEVEL 35.0 MMOL/L (20-31); CHLORIDE LEVEL 98.0 MMOL/L (98-107); CREATININE FOR GFR 1.26 MG/DL (0.55-1.30); GLOMERULAR FILTRATION RATE 43.2 (>32); POTASSIUM SERUM 5.7 MMOL/L (3.5-5.1); SODIUM LEVEL 139.0 MMOL/L (136-145)
[2025-01-12 07:26] VITALS: O2SAT 99
[2025-01-12] MEDS ORDERED: MIRALAX *UNIT DOSE* 17 GM PACKET PO PRN (08:20)
[2025-01-12] MEDS ORDERED: BISACODYL 10 MG SUPP PR PRN (08:20)
[2025-01-12] MEDS: NS 500 ML IV ONE (08:51)
[2025-01-12 12:00] VITALS: BP 139/46; TEMP 97; O2SAT 94
[2025-01-12] MEDS: PATIROMER SORBITEX CALCIUM 8.4GM POWDER PACKET PO ONE (15:29)
[2025-01-12 20:00] VITALS: BP 151/48; TEMP 96.6; O2SAT 94
[2025-01-12] MEDS: SENNOSIDES/DOCUSATE SODIUM 8.6 MG/50MG TAB PO SCH (21:00)
[2025-01-13 00:33] LABS: CALCIUM LEVEL 10.2 MG/DL (8.3-10.6); CARBON DIOXIDE LEVEL 34.0 MMOL/L (20-31); CHLORIDE LEVEL 99.0 MMOL/L (98-107); CREATININE FOR GFR 1.23 MG/DL (0.55-1.30); GLOMERULAR FILTRATION RATE 44.4 (>32); MAGNESIUM LEVEL 2.2 MG/DL (1.8-2.4); POTASSIUM SERUM 5.7 MMOL/L (3.5-5.1); SODIUM LEVEL 137.0 MMOL/L (136-145)
[2025-01-13] MEDS: ALBUTEROL SULFATE 2.5 MG/0.5 ML INH CONCENTRATE NEB SOLN NEB ONE (03:43)
[2025-01-13 04:00] VITALS: BP 163/51; TEMP 96.8; O2SAT 99
[2025-01-13 05:39] LABS: BASO # 0.0 10^3/uL (0.0-0.2); BASO % 0.2 % (0.0-1.0); EOS # 0.0 10^3/uL (0.0-0.5); EOS % 0.1 % (0.0-3.0); LYMPH # 1.6 10^3/uL (1.5-5.0); LYMPH % 9.7 % (24.0-44.0); MONO # 1.8 10^3/uL (0.0-0.8); MONO % 11.0 % (2.0-8.0); NEUTROPHILS # 12.0 10^3/uL (1.5-8.5); NEUTROPHILS % 74.2 % (36.0-66.0); PLATELET COUNT, AUTOMATED 147 10^3/uL (150-450)
[2025-01-13 06:04] LABS: CALCIUM LEVEL 10.3 MG/DL (8.3-10.6); CARBON DIOXIDE LEVEL 35.0 MMOL/L (20-31); CHLORIDE LEVEL 98.0 MMOL/L (98-107); CREATININE FOR GFR 1.2 MG/DL (0.55-1.30); GLOMERULAR FILTRATION RATE 45.8 (>32); POTASSIUM SERUM 5.6 MMOL/L (3.5-5.1); SODIUM LEVEL 138.0 MMOL/L (136-145)
[2025-01-13 09:05] LABS: DIGOXIN LEVEL 1.9 NG/ML (0.8-2.0)
[2025-01-13] MEDS: predniSONE 20 MG TAB PO SCH (09:11)
[2025-01-13 09:12] VITALS: BP 145/57
[2025-01-13] MEDS ORDERED: VELT1POW PO (11:08)
[2025-01-13] MEDS ORDERED: SODI3NEB3 INH (11:08)
[2025-01-13] MEDS ORDERED: BUSP15TA48 PO (11:08)
[2025-01-13] MEDS ORDERED: MUCI600T31 PO (11:08)
[2025-01-13] MEDS ORDERED: IPRA0.00 INH (11:08)
[2025-01-13] MEDS ORDERED: AMLO1TAB24 PO (11:08)
[2025-01-13] MEDS ORDERED: DOCU8.6T PO (11:08)
[2025-01-13 12:12] VITALS: BP 148/72; TEMP 97.2; O2SAT 92
== END 2025-01-13 13:24 | disposition home health service (06) | DRG 189 ==
LOC: M ED 05:18 → M ED INP 14:52 → M MSPAV 15:56 → M ICU 01-03 05:26 → M MSPAV 01-08 12:58
PROVIDERS: ADMIT Family Medicine; ATTEND Internal Medicine Nephrology
DX: J96.21 Acute and chronic respiratory failure with hypoxia (principal); E43 Unspecified severe protein-calorie malnutrition; J44.1 Chronic obstructive pulmonary disease with (acute) exacerbation; B37.0 Candidal stomatitis; C34.92 Malignant neoplasm of unspecified part of left bronchus or lung; C79.31 Secondary malignant neoplasm of brain; J96.22 Acute and chronic respiratory failure with hypercapnia; R91.1 Solitary pulmonary nodule; E78.5 Hyperlipidemia, unspecified; K21.9 Gastro-esophageal reflux disease without esophagitis; D64.9 Anemia, unspecified; R49.0 Dysphonia; M81.0 Age-related osteoporosis without current pathological fracture; J38.00 Paralysis of vocal cords and larynx, unspecified; I48.91 Unspecified atrial fibrillation; E03.9 Hypothyroidism, unspecified; M48.00 Spinal stenosis, site unspecified; Z85.038 Personal history of other malignant neoplasm of large intestine; I73.9 Peripheral vascular disease, unspecified; F17.200 Nicotine dependence, unspecified, uncomplicated; Z88.5 Allergy status to narcotic agent; Z88.8 Allergy status to other drugs, medicaments and biological substances; Z79.899 Other long term (current) drug therapy; Z79.890 Hormone replacement therapy; Z95.2 Presence of prosthetic heart valve; R00.0 Tachycardia, unspecified; Z66 Do not resuscitate

== ENCOUNTER → 2025-01-19 | Outpatient (REF) | payer MEDICARE ==
[~2025-01-19] MED LIST changes: +BUSP15TA48 PO; +DOCU8.6T PO; +HYDR25TA87 PO; +MAGN400T35 PO; +MUCI600T31 PO; +SODI3NEB3 INH; +VELT1POW PO
[2025-01-19 15:11] LABS: PLATELET COUNT, AUTOMATED 140 10^3/uL (150-450)
[2025-01-19 15:22] LABS: ALT/SGPT 25.0 U/L (7.0-40); AST/SGOT 20.0 U/L (<34); CALCIUM LEVEL 10.0 MG/DL (8.3-10.6); CARBON DIOXIDE LEVEL 27.0 MMOL/L (20-31); CHLORIDE LEVEL 105.0 MMOL/L (98-107); CREATININE FOR GFR 1.1 MG/DL (0.55-1.30); GLOMERULAR FILTRATION RATE 50.8 (>32); POTASSIUM SERUM 4.3 MMOL/L (3.5-5.1); SODIUM LEVEL 143.0 MMOL/L (136-145)
== END ==
LOC: M SFHCADAM 08:13
PROVIDERS: ATTEND Family Medicine
DX: D50.0 Iron deficiency anemia secondary to blood loss (chronic) (principal); I11.9 Hypertensive heart disease without heart failure

== ENCOUNTER → 2025-02-04 | Outpatient (CLI) | payer MEDICARE ==
[~2025-02-04] MED LIST changes: +BUSP15TA47 PO; +NYST-38; +SODI3NEB3 NEB
== END ==
LOC: M ONCR 14:06
PROVIDERS: ATTEND General Practice
DX: C34.2 Malignant neoplasm of middle lobe, bronchus or lung (principal); Z87.891 Personal history of nicotine dependence; C20 Malignant neoplasm of rectum; D50.9 Iron deficiency anemia, unspecified; Z85.841 Personal history of malignant neoplasm of brain; Z90.89 Acquired absence of other organs; Z79.899 Other long term (current) drug therapy; Z92.3 Personal history of irradiation; Z88.5 Allergy status to narcotic agent; Z88.8 Allergy status to other drugs, medicaments and biological substances

== ENCOUNTER → 2025-02-04 | Outpatient (REF) | payer MEDICARE ==
[~2025-02-04] MED LIST changes: -BUSP15TA47 PO; -NYST-38; -SODI3NEB3 NEB
[2025-02-04 14:07] LABS: PLATELET COUNT, AUTOMATED 176 10^3/uL (150-450)
[2025-02-04 14:11] LABS: IRON (FE) 34.0 UG/DL (50-170)
[2025-02-04 14:13] LABS: ALT/SGPT 14.0 U/L (7.0-40); AST/SGOT 14.0 U/L (<34); CALCIUM LEVEL 10.0 MG/DL (8.3-10.6); CARBON DIOXIDE LEVEL 28.0 MMOL/L (20-31); CHLORIDE LEVEL 107.0 MMOL/L (98-107); CREATININE FOR GFR 1.25 MG/DL (0.55-1.30); GLOMERULAR FILTRATION RATE 43.6 (>32); PERCENT SATURATION 12.1 % (13.2-45.0); POTASSIUM SERUM 5.0 MMOL/L (3.5-5.1); SODIUM LEVEL 142.0 MMOL/L (136-145)
[2025-02-04 14:14] LABS: FREE T4 1.63 NG/DL (0.89-1.76)
== END ==
LOC: M SFHCADAM 10:14
PROVIDERS: ATTEND Family Medicine
DX: E44.0 Moderate protein-calorie malnutrition (principal); I11.9 Hypertensive heart disease without heart failure; D50.0 Iron deficiency anemia secondary to blood loss (chronic); E03.9 Hypothyroidism, unspecified

== ENCOUNTER → 2025-02-23 | Outpatient (REF) | payer MEDICARE ==
[~2025-02-23] MED LIST changes: +ATOR1TAB21 PO; +BUSP15TA47 PO; +FURO40TA2 PO; +LEVO75TAB PO; +NICO14PA TD; +NYST-38; +SODI3NEB3 NEB
[2025-02-23 15:08] LABS: VITAMIN B12 LEVEL 362.0 PG/ML (211-911)
[2025-02-23 15:10] LABS: ALT/SGPT 28.0 U/L (7.0-40); AST/SGOT 19.0 U/L (<34); CALCIUM LEVEL 9.2 MG/DL (8.3-10.6); CARBON DIOXIDE LEVEL 31.0 MMOL/L (20-31); CHLORIDE LEVEL 103.0 MMOL/L (98-107); CREATININE FOR GFR 1.77 MG/DL (0.55-1.30); GLOMERULAR FILTRATION RATE 28.7 (>32); POTASSIUM SERUM 4.4 MMOL/L (3.5-5.1); SODIUM LEVEL 143.0 MMOL/L (136-145)
[2025-02-23 15:17] LABS: BASO # 0.0 10^3/uL (0.0-0.2); BASO % 0.3 % (0.0-1.0); EOS # 0.2 10^3/uL (0.0-0.5); EOS % 1.3 % (0.0-3.0); LYMPH # 1.5 10^3/uL (1.5-5.0); LYMPH % 9.6 % (24.0-44.0); MONO # 1.6 10^3/uL (0.0-0.8); MONO % 10.4 % (2.0-8.0); NEUTROPHILS # 11.7 10^3/uL (1.5-8.5); NEUTROPHILS % 76.3 % (36.0-66.0); PLATELET COUNT, AUTOMATED 210 10^3/uL (150-450)
== END ==
LOC: M LABDRWAD 13:30
PROVIDERS: ATTEND General Practice
DX: C34.2 Malignant neoplasm of middle lobe, bronchus or lung (principal)

== ENCOUNTER → 2025-02-24 | Outpatient (CLI) | payer MEDICARE ==
[~2025-02-24] MED LIST changes: +ACETAMINOPHEN 325 MG TAB PO SCH; +FURO20TA2; +MORP1SOL4 PO
[2025-02-24 15:57] VITALS: BP 122/76; TEMP 96.7; O2SAT 98
[2025-02-24 16:20] VITALS: BP 141/57; TEMP 97.3; O2SAT 97
[2025-02-24 16:52] VITALS: BP 139/58; TEMP 97.1; O2SAT 95
[2025-02-24 17:26] VITALS: BP 151/62; TEMP 97.2; O2SAT 98
[2025-02-25] MEDS: SODIUM CHLORIDE 0.9% INJ 10 ML SYR IV PRN (17:35)
== END ==
LOC: M ONCR 13:44
PROVIDERS: ATTEND General Practice
DX: K63.3 Ulcer of intestine (principal)
CPT/HCPCS: 36415; 36430; 86850; 86900; 86901; 86920; G0463; P9016

== ENCOUNTER → 2025-03-01 | Outpatient (REF) | payer MEDICARE ==
[~2025-03-01] MED LIST changes: -ACETAMINOPHEN 325 MG TAB PO SCH; -FURO20TA2
[2025-03-01 14:41] LABS: MAGNESIUM LEVEL 2.3 MG/DL (1.8-2.4)
== END ==
LOC: M LAB REF 14:17
DX: I50.9 Heart failure, unspecified (principal); E61.2 Magnesium deficiency; D50.0 Iron deficiency anemia secondary to blood loss (chronic)

== ENCOUNTER → 2025-03-01 | Outpatient (CLI) | payer MEDICARE ==
[~2025-03-01] MED LIST changes: +FURO20TA2
[2025-03-01 12:48] LABS: IRON (FE) 16.0 UG/DL (50-170); PERCENT SATURATION 6.5 % (13.2-45.0)
== END ==
LOC: M LAB 11:37
PROVIDERS: ATTEND Internal Medicine Cardiovascular Disease
DX: D50.0 Iron deficiency anemia secondary to blood loss (chronic) (principal)

== ENCOUNTER → 2025-03-01 | Outpatient (CLI) | payer MEDICARE ==
[2025-03-01 12:27] LABS: BASO # 0.1 10^3/uL (0.0-0.2); BASO % 0.5 % (0.0-1.0); EOS # 0.2 10^3/uL (0.0-0.5); EOS % 1.5 % (0.0-3.0); LYMPH # 1.1 10^3/uL (1.5-5.0); LYMPH % 8.8 % (24.0-44.0); MONO # 2.1 10^3/uL (0.0-0.8); MONO % 17.0 % (2.0-8.0); NEUTROPHILS # 8.9 10^3/uL (1.5-8.5); NEUTROPHILS % 71.3 % (36.0-66.0); PLATELET COUNT, AUTOMATED 167 10^3/uL (150-450)
[2025-03-01 12:47] LABS: ALT/SGPT 20.0 U/L (7.0-40); AST/SGOT 20.0 U/L (<34); CALCIUM LEVEL 9.4 MG/DL (8.3-10.6); CARBON DIOXIDE LEVEL 34.0 MMOL/L (20-31); CHLORIDE LEVEL 101.0 MMOL/L (98-107); CREATININE FOR GFR 1.26 MG/DL (0.55-1.30); GLOMERULAR FILTRATION RATE 43.2 (>32); POTASSIUM SERUM 4.9 MMOL/L (3.5-5.1); SODIUM LEVEL 141.0 MMOL/L (136-145)
== END ==
LOC: M LAB 11:35
PROVIDERS: ATTEND General Practice
DX: D50.0 Iron deficiency anemia secondary to blood loss (chronic) (principal)

== ENCOUNTER → 2025-03-02 | Outpatient (CLI) | payer MEDICARE ==
[~2025-03-02] MED LIST changes: -FURO20TA2
== END ==
LOC: M PAL 13:45
PROVIDERS: ATTEND Physician Assistant
DX: Z51.5 Encounter for palliative care (principal); Z66 Do not resuscitate; Z98.0 Intestinal bypass and anastomosis status; C34.82 Malignant neoplasm of overlapping sites of left bronchus and lung; C79.31 Secondary malignant neoplasm of brain; Z79.891 Long term (current) use of opiate analgesic; Z88.5 Allergy status to narcotic agent; Z88.1 Allergy status to other antibiotic agents; Z79.02 Long term (current) use of antithrombotics/antiplatelets; Z79.899 Other long term (current) drug therapy

== ENCOUNTER → 2025-03-02 | Outpatient (CLI) | payer MEDICARE ==
[2025-03-02] VITALS (9 sets, daily range): BP systolic 135–157; BP diastolic 63–84; TEMP 96.4–97.6; O2SAT 92–98
[~2025-03-02] MED LIST changes: +FURO20TA2
[2025-03-02] MEDS: FUROSEMIDE 20 MG TAB PO ONE (14:35)
== END ==
LOC: M ONCR 10:19
PROVIDERS: ATTEND General Practice
DX: Z51.5 Encounter for palliative care (principal); C34.82 Malignant neoplasm of overlapping sites of left bronchus and lung; C79.31 Secondary malignant neoplasm of brain; Z79.891 Long term (current) use of opiate analgesic; Z88.1 Allergy status to other antibiotic agents; Z88.5 Allergy status to narcotic agent; Z79.02 Long term (current) use of antithrombotics/antiplatelets; Z79.899 Other long term (current) drug therapy; Z66 Do not resuscitate; Z98.0 Intestinal bypass and anastomosis status
CPT/HCPCS: 36430; 86920; G0463; P9016

== ENCOUNTER → 2025-03-16 | Outpatient (CLI) | payer MEDICARE ==
[~2025-03-16] VITALS: Ht 157.5 cm; Wt 48.6 kg
[2025-03-16 11:39] VITALS: BP 142/54; O2SAT 96
== END ==
LOC: M PAL 11:23
PROVIDERS: ATTEND Physician Assistant
DX: Z51.5 Encounter for palliative care (principal); Z66 Do not resuscitate; Z98.0 Intestinal bypass and anastomosis status; K92.2 Gastrointestinal hemorrhage, unspecified; D64.9 Anemia, unspecified; C34.90 Malignant neoplasm of unspecified part of unspecified bronchus or lung; C79.31 Secondary malignant neoplasm of brain; Z79.891 Long term (current) use of opiate analgesic; Z88.1 Allergy status to other antibiotic agents; Z88.5 Allergy status to narcotic agent; Z79.899 Other long term (current) drug therapy; Z79.83 Long term (current) use of bisphosphonates

== ENCOUNTER → 2025-04-23 | Outpatient (REF) | payer MEDICARE ==
[~2025-04-23] MED LIST changes: +ACET-683 PO; -DOCU8.6T PO; -FURO20TA2; +SENN-208 PO
[2025-04-23 10:36] LABS: CALCIUM LEVEL 9.5 MG/DL (8.3-10.6); CARBON DIOXIDE LEVEL 29.0 MMOL/L (20-31); CHLORIDE LEVEL 102.0 MMOL/L (98-107); CREATININE FOR GFR 1.58 MG/DL (0.55-1.30); GLOMERULAR FILTRATION RATE 32.9 (>32); MAGNESIUM LEVEL 1.6 MG/DL (1.8-2.4); POTASSIUM SERUM 4.2 MMOL/L (3.5-5.1); SODIUM LEVEL 140.0 MMOL/L (136-145)
== END ==
LOC: M LAB REF 09:40
PROVIDERS: ATTEND Family Medicine
DX: I11.9 Hypertensive heart disease without heart failure (principal); E83.42 Hypomagnesemia

== ENCOUNTER 2025-04-25 19:47 | Inpatient (IN) | payer MEDICARE ==
[~2025-04-25] VITALS: Ht 157.5 cm; Wt 50.7 kg
[~2025-04-25 19:47] MED LIST changes: -ACET-683 PO
[2025-04-25 20:53] LABS: VENOUS BASE EXCESS 2.0 (-2.0-2.0); VENOUS HCO3 26.6 MMOL/L (23.0-27.0); VENOUS O2 SATURATION 96.1 % (60.0-80.0); VENOUS PARTIAL PRESSURE CO2 41.7 mmHg (38.0-50.0); VENOUS PARTIAL PRESSURE O2 86.2 mmHg (30.0-50.0); VENOUS PH 7.423 UNITS (7.330-7.430); VENOUS STANDARD HCO3 26.2 MMOL/L; VENOUS TOTAL CO2 27.9 MMOL/L (24.0-28.0)
[2025-04-25 20:58] LABS: BASO # 0.1 10^3/uL (0.0-0.2); BASO % 0.5 % (0.0-1.0); EOS # 0.4 10^3/uL (0.0-0.5); EOS % 3.0 % (0.0-3.0); LYMPH # 1.2 10^3/uL (1.5-5.0); LYMPH % 9.8 % (24.0-44.0); MONO # 2.3 10^3/uL (0.0-0.8); MONO % 19.6 % (2.0-8.0); NEUTROPHILS # 7.9 10^3/uL (1.5-8.5); NEUTROPHILS % 66.7 % (36.0-66.0); PLATELET COUNT, AUTOMATED 176 10^3/uL (150-450)
[2025-04-25 21:23] LABS: CK-MB VALUE MASS < 1.0 NG/ML (<3.6)
[2025-04-25 21:24] LABS: ALT/SGPT < 9 U/L (7.0-40); AST/SGOT 14 U/L (<34); CALCIUM LEVEL 9.4 MG/DL (8.3-10.6); CARBON DIOXIDE LEVEL 28 MMOL/L (20-31); CHLORIDE LEVEL 101 MMOL/L (98-107); CREATININE FOR GFR 1.53 MG/DL (0.55-1.30); GLOMERULAR FILTRATION RATE 34.2 (>32); POTASSIUM SERUM 4.4 MMOL/L (3.5-5.1); SODIUM LEVEL 138 MMOL/L (136-145)
[2025-04-25 21:26] LABS: THYROXINE (T4) 8.7 UG/DL (4.5-10.9)
[2025-04-25 21:36] LABS: CPK CREATINE PHOSPHOKINASE 23 U/L (34-145)
[2025-04-25] MEDS: IPRATROPIUM 0.5 MG/ALBUTEROL 2.5 MG INH SOL UD 3 ML NEB ONE (22:25)
[2025-04-25 22:32] LABS: CK-MB VALUE MASS < 1.0 NG/ML (<3.6)
[2025-04-25 22:34] LABS: CPK CREATINE PHOSPHOKINASE 18 U/L (34-145)
[2025-04-25] MEDS ORDERED: ACETAMINOPHEN 325 MG TAB PO PRN (23:30)
[2025-04-25] MEDS ORDERED: MOM 30 ML SUSPENSION UDC PO PRN (23:30)
[2025-04-26] MEDS: IPRATROPIUM 0.5 MG/ALBUTEROL 2.5 MG INH SOL UD 3 ML NEB SCH ×2 (04:00→19:24)
[2025-04-26] MEDS ORDERED: ACET-683 PO (04:54)
[2025-04-26] MEDS ORDERED: HOME MED LIST COMPLETE! XX SCH (04:55)
[2025-04-26 07:10] LABS: PLATELET COUNT, AUTOMATED 189 10^3/uL (150-450)
[2025-04-26 07:41] LABS: CALCIUM LEVEL 9.6 MG/DL (8.3-10.6); CARBON DIOXIDE LEVEL 27.0 MMOL/L (20-31); CHLORIDE LEVEL 102.0 MMOL/L (98-107); CREATININE FOR GFR 1.59 MG/DL (0.55-1.30); GLOMERULAR FILTRATION RATE 32.7 (>32); POTASSIUM SERUM 4.8 MMOL/L (3.5-5.1); SODIUM LEVEL 139.0 MMOL/L (136-145)
[2025-04-26 09:00] VITALS: O2SAT 92
[2025-04-26] MEDS: predniSONE 20 MG TAB PO SCH (09:39)
[2025-04-26] MEDS: HEPARIN SOD 5000 UNITS/ML 1 ML VIAL/SYRINGE SC SCH (09:41)
[2025-04-26] MEDS: AZITHROMYCIN 250 MG TABLET PO SCH (13:05)
[2025-04-26] MEDS: guaiFENesin ER TABLET 600 MG TAB PO SCH (13:08)
[2025-04-26] MEDS: PANTOPRAZOLE 40MG TAB PO SCH (13:15)
[2025-04-26] MEDS: NS (Normal Saline) 0.9% 1,000 ML IV ONE (13:20)
[2025-04-26 18:13] VITALS: O2SAT 90
[2025-04-26] MEDS: TIOTROPIUM BROM 2.5MCG/ACTUATION 4GM INH INH SCH (19:40)
[2025-04-26] MEDS: NYSTATIN 500,000 UNITS/5 ML SUSP UDC SS SCH (20:49)
[2025-04-26] MEDS: busPIRone 5 MG TAB PO SCH (20:49)
[2025-04-26] MEDS: amLODIPine 5 MG TAB PO SCH (20:50)
[2025-04-26 20:54] VITALS: BP 133/61; TEMP 98.5; O2SAT 92
[2025-04-26] MEDS ORDERED: NYSTATIN 500,000 UNITS/5 ML SUSP UDC SS SCH (21:00)
[2025-04-27 03:45] VITALS: BP 127/63; TEMP 97.9; O2SAT 93
[2025-04-27 05:38] VITALS: O2SAT 93
[2025-04-27] MEDS: LEVOTHYROXINE 75 MCG TABLET (0.075 MG) PO SCH (05:59)
[2025-04-27] MEDS: ALBUTEROL SULFATE 2.5 MG/0.5 ML INH CONCENTRATE NEB SOLN NEB PRN (06:04)
[2025-04-27 06:44] LABS: BASO # 0.0 10^3/uL (0.0-0.2); BASO % 0.1 % (0.0-1.0); EOS # 0.0 10^3/uL (0.0-0.5); EOS % 0.0 % (0.0-3.0); LYMPH # 0.6 10^3/uL (1.5-5.0); LYMPH % 5.2 % (24.0-44.0); MONO # 0.9 10^3/uL (0.0-0.8); MONO % 8.4 % (2.0-8.0); NEUTROPHILS # 9.4 10^3/uL (1.5-8.5); NEUTROPHILS % 85.8 % (36.0-66.0); PLATELET COUNT, AUTOMATED 184 10^3/uL (150-450)
[2025-04-27 07:04] LABS: CALCIUM LEVEL 9.7 MG/DL (8.3-10.6); CARBON DIOXIDE LEVEL 27.0 MMOL/L (20-31); CHLORIDE LEVEL 98.0 MMOL/L (98-107); CREATININE FOR GFR 1.44 MG/DL (0.55-1.30); GLOMERULAR FILTRATION RATE 36.8 (>32); POTASSIUM SERUM 4.4 MMOL/L (3.5-5.1); SODIUM LEVEL 136.0 MMOL/L (136-145)
[2025-04-27 12:07] VITALS: BP 165/72; TEMP 98.3; O2SAT 97
[2025-04-27] MEDS: FUROSEMIDE 40 MG/4 ML VIAL IV SCH (12:50)
[2025-04-27 15:00] VITALS: BP 145/65; TEMP 97.6; O2SAT 97
[2025-04-27] MEDS: IPRATROPIUM 0.5 MG/ALBUTEROL 2.5 MG INH SOL UD 3 ML NEB SCH (15:18)
[2025-04-27 15:56] VITALS: O2SAT 94
[2025-04-27 19:40] VITALS: BP 149/65; TEMP 97; O2SAT 100
[2025-04-28 05:19] VITALS: BP 129/60; TEMP 97.8; O2SAT 98
[2025-04-28 05:52] LABS: BASO # 0.0 10^3/uL (0.0-0.2); BASO % 0.1 % (0.0-1.0); EOS # 0.0 10^3/uL (0.0-0.5); EOS % 0.0 % (0.0-3.0); LYMPH # 0.4 10^3/uL (1.5-5.0); LYMPH % 3.6 % (24.0-44.0); MONO # 0.5 10^3/uL (0.0-0.8); MONO % 4.6 % (2.0-8.0); NEUTROPHILS # 10.3 10^3/uL (1.5-8.5); NEUTROPHILS % 90.5 % (36.0-66.0); PLATELET COUNT, AUTOMATED 194 10^3/uL (150-450)
[2025-04-28 06:23] LABS: CALCIUM LEVEL 9.7 MG/DL (8.3-10.6); CARBON DIOXIDE LEVEL 30.0 MMOL/L (20-31); CHLORIDE LEVEL 101.0 MMOL/L (98-107); CREATININE FOR GFR 1.7 MG/DL (0.55-1.30); GLOMERULAR FILTRATION RATE 30.1 (>32); POTASSIUM SERUM 4.6 MMOL/L (3.5-5.1); SODIUM LEVEL 141.0 MMOL/L (136-145)
[2025-04-28] MEDS: DIGOXIN 0.0625 MG PER 1/2 TABLET PO SCH (08:30)
[2025-04-28 10:51] VITALS: O2SAT 94
[2025-04-28 10:53] VITALS: O2SAT 89
[2025-04-28 10:59] VITALS: O2SAT 92
[2025-04-28 12:00] VITALS: BP 147/66; TEMP 98.6; O2SAT 93
[2025-04-28 20:55] VITALS: BP 129/62; TEMP 97.7; O2SAT 94
[2025-04-29 01:10] VITALS: O2SAT 88
[2025-04-29 01:20] VITALS: O2SAT 92
[2025-04-29 05:31] VITALS: BP 133/60; TEMP 97.7; O2SAT 94
[2025-04-29 07:29] LABS: PLATELET COUNT, AUTOMATED 199 10^3/uL (150-450)
[2025-04-29 08:02] LABS: CALCIUM LEVEL 9.7 MG/DL (8.3-10.6); CARBON DIOXIDE LEVEL 30.0 MMOL/L (20-31); CHLORIDE LEVEL 101.0 MMOL/L (98-107); CREATININE FOR GFR 1.63 MG/DL (0.55-1.30); GLOMERULAR FILTRATION RATE 31.7 (>32); MAGNESIUM LEVEL 2.0 MG/DL (1.8-2.4); POTASSIUM SERUM 4.5 MMOL/L (3.5-5.1); SODIUM LEVEL 141.0 MMOL/L (136-145)
[2025-04-29] MEDS ORDERED: FUROSEMIDE 20 MG TAB PO SCH (09:00)
[2025-04-29] MEDS: FUROSEMIDE 20 MG TAB PO SCH (09:00)
[2025-04-29 12:19] VITALS: BP 136/64; TEMP 98.1; O2SAT 93
[2025-04-29] MEDS: BUDESONIDE 0.5 MG/2 ML INHALATION SUSPENSION NEB SCH (19:09)
[2025-04-29] MEDS: GLYCOPYRROLATE INJ 0.2 MG/ML 2 ML VIAL NEB SCH (19:09)
[2025-04-29 20:57] VITALS: BP 136/59; TEMP 98.7; O2SAT 94
[2025-04-30 05:35] VITALS: BP 142/66; TEMP 98.1; O2SAT 97
[2025-04-30 06:49] LABS: PLATELET COUNT, AUTOMATED 191 10^3/uL (150-450)
[2025-04-30 07:17] LABS: CALCIUM LEVEL 9.3 MG/DL (8.3-10.6); CARBON DIOXIDE LEVEL 31.0 MMOL/L (20-31); CHLORIDE LEVEL 102.0 MMOL/L (98-107); CREATININE FOR GFR 1.4 MG/DL (0.55-1.30); GLOMERULAR FILTRATION RATE 38.0 (>32); MAGNESIUM LEVEL 2.0 MG/DL (1.8-2.4); POTASSIUM SERUM 4.8 MMOL/L (3.5-5.1); SODIUM LEVEL 142.0 MMOL/L (136-145)
[2025-04-30] MEDS: FUROSEMIDE 40 MG/4 ML VIAL IV SCH (09:04)
[2025-04-30 12:00] VITALS: BP 135/63; TEMP 98.1; O2SAT 94
[2025-04-30 21:09] VITALS: BP 140/65; TEMP 98.5; O2SAT 93
[2025-05-01 04:09] VITALS: BP 141/65; TEMP 98.4; O2SAT 94
[2025-05-01 06:56] LABS: PLATELET COUNT, AUTOMATED 210 10^3/uL (150-450)
[2025-05-01 07:24] LABS: CALCIUM LEVEL 9.5 MG/DL (8.3-10.6); CARBON DIOXIDE LEVEL 33.0 MMOL/L (20-31); CHLORIDE LEVEL 99.0 MMOL/L (98-107); CREATININE FOR GFR 1.42 MG/DL (0.55-1.30); GLOMERULAR FILTRATION RATE 37.4 (>32); MAGNESIUM LEVEL 2.1 MG/DL (1.8-2.4); POTASSIUM SERUM 4.6 MMOL/L (3.5-5.1); SODIUM LEVEL 141.0 MMOL/L (136-145)
[2025-05-01 12:23] VITALS: BP 149/67; TEMP 97.8; O2SAT 94
[2025-05-01 19:57] VITALS: BP 143/64; TEMP 98.2; O2SAT 94
[2025-05-01 21:09] VITALS: BP 143/64
[2025-05-02 04:03] VITALS: BP 132/62; TEMP 98.2; O2SAT 93
[2025-05-02 06:07] LABS: PLATELET COUNT, AUTOMATED 197 10^3/uL (150-450)
[2025-05-02 06:34] LABS: CALCIUM LEVEL 9.5 MG/DL (8.3-10.6); CARBON DIOXIDE LEVEL 33.0 MMOL/L (20-31); CHLORIDE LEVEL 99.0 MMOL/L (98-107); CREATININE FOR GFR 1.39 MG/DL (0.55-1.30); GLOMERULAR FILTRATION RATE 38.4 (>32); MAGNESIUM LEVEL 2.2 MG/DL (1.8-2.4); POTASSIUM SERUM 4.7 MMOL/L (3.5-5.1); SODIUM LEVEL 140.0 MMOL/L (136-145)
[2025-05-02 09:23] VITALS: BP 137/62
[2025-05-02] MEDS: IPRATROPIUM 0.5 MG/ALBUTEROL 2.5 MG INH SOL UD 3 ML NEB PRN (09:44)
[2025-05-02] MEDS ORDERED: SYMB16INH INH (10:28)
[2025-05-02] MEDS ORDERED: FURO40TA2 PO (10:28)
== END 2025-05-02 12:30 | disposition home or self-care (01) | DRG 190 ==
LOC: M ED 19:47 → M ED INP 23:27 → M MSPAV 04-26 14:02
PROVIDERS: ADMIT Student in an Organized Health Care Education/Training Program; ATTEND Student in an Organized Health Care Education/Training Program
DX: J44.1 Chronic obstructive pulmonary disease with (acute) exacerbation (principal); I50.33 Acute on chronic diastolic (congestive) heart failure; I13.0 Hypertensive heart and chronic kidney disease with heart failure and stage 1 through stage 4 chronic kidney disease, or unspecified chronic kidney disease; E46 Unspecified protein-calorie malnutrition; F39 Unspecified mood [affective] disorder; E03.9 Hypothyroidism, unspecified; N18.9 Chronic kidney disease, unspecified; I48.91 Unspecified atrial fibrillation; K21.9 Gastro-esophageal reflux disease without esophagitis; I27.20 Pulmonary hypertension, unspecified; Z85.3 Personal history of malignant neoplasm of breast; Z85.118 Personal history of other malignant neoplasm of bronchus and lung; I35.0 Nonrheumatic aortic (valve) stenosis; E78.5 Hyperlipidemia, unspecified; M81.0 Age-related osteoporosis without current pathological fracture; Z85.038 Personal history of other malignant neoplasm of large intestine; Z95.2 Presence of prosthetic heart valve; J38.02 Paralysis of vocal cords and larynx, bilateral; Z87.891 Personal history of nicotine dependence; Z79.899 Other long term (current) drug therapy; Z79.890 Hormone replacement therapy; Z88.5 Allergy status to narcotic agent; Z88.8 Allergy status to other drugs, medicaments and biological substances; Z66 Do not resuscitate; G47.33 Obstructive sleep apnea (adult) (pediatric); D50.9 Iron deficiency anemia, unspecified

== ENCOUNTER → 2025-05-11 | Outpatient (REF) | payer MEDICARE ==
[~2025-05-11] MED LIST changes: +ACET-683 PO
[2025-05-11 11:28] LABS: PLATELET COUNT, AUTOMATED 114 10^3/uL (150-450)
[2025-05-11 11:55] LABS: DIGOXIN LEVEL 2.3 NG/ML (0.8-2.0); IRON (FE) 10.0 UG/DL (50-170)
[2025-05-11 11:56] LABS: PERCENT SATURATION 4.4 % (13.2-45.0)
[2025-05-11 13:07] LABS: ALT/SGPT 15.0 U/L (7.0-40); AST/SGOT 16.0 U/L (<34); CALCIUM LEVEL 9.0 MG/DL (8.3-10.6); CARBON DIOXIDE LEVEL 37.0 MMOL/L (20-31); CHLORIDE LEVEL 98.0 MMOL/L (98-107); CREATININE FOR GFR 1.8 MG/DL (0.55-1.30); FREE T4 1.57 NG/DL (0.89-1.76); GLOMERULAR FILTRATION RATE 28.0 (>32); MAGNESIUM LEVEL 2.3 MG/DL (1.8-2.4); POTASSIUM SERUM 4.9 MMOL/L (3.5-5.1); SODIUM LEVEL 139.0 MMOL/L (136-145)
== END ==
LOC: M LAB REF 11:11
PROVIDERS: ATTEND Family Medicine
DX: E44.0 Moderate protein-calorie malnutrition (principal); I48.0 Paroxysmal atrial fibrillation; E03.9 Hypothyroidism, unspecified; E83.42 Hypomagnesemia; D50.0 Iron deficiency anemia secondary to blood loss (chronic)